=== PATIENT | male | born 1935 | race Caucasian/White ===

== ENCOUNTER 2020-11-20 11:52 | Inpatient (IN) | payer MEDICARE, OTHER ==
[~2020-11-20] VITALS: Ht 175.3 cm; Wt 100.5 kg
[2020-11-20] MEDS ORDERED: SODIUM CHLORIDE 0.9% 1,000 ML IVB ONE (14:15)
[2020-11-20 15:18] LABS: Hemoglobin 16.1 g/dL (13.5-17.5); Mean Corpuscular Hgb Conc. 33.5 g/dL (32.0-36.0); Mean Corpuscular Volume 89.8 fL (80.0-100.0); Red Blood Cells 5.35 10^6/uL (4.5-5.90); Red Cell Distribution Width 15.1 % (11.8-14.3); White Blood Cell 21.3 10^3/uL (4.4-10.8)
[2020-11-20 15:30] LABS: Band Neutrophils % (manual) 0; Basophils % (manual) 0 (0.0-2.0); Blast Cells 0; Eosinophils % (manual) 0 (0-7); Metamyelocytes % 0; Myelocytes % 0; Promyelocytes % 0; Reactive Lymphocytes 0
[2020-11-20] MEDS ORDERED: AZITHROMYCIN 500MG/ 250ML 250 ML IV ONE (15:30)
[2020-11-20 15:36] LABS: INR 1.25 (0.9-1.15); Partial Thromboplastin Time 33.2 sec (23.0-31.2)
[2020-11-20 15:38] LABS: Albumin 2.9 g/dL (3.4-5.0); Anion Gap 12 (5-15); Blood Urea Nitrogen 26 mg/dL (7-18); Calcium 9.4 mg/dL (8.5-10.1); Carbon Dioxide 19 mmol/L (21-32); Chloride 108 mmol/L (98-107); Glucose 181 mg/dL (74-106); Potassium 3.6 mmol/L (3.5-5.1); Sodium 139 mmol/L (136-145)
[2020-11-20 15:47] LABS: Alanine Aminotransferase 42 U/L (16-61); Alkaline Phosphatase 86 U/L (45-117); Aspartate Aminotransferase 61 U/L (15-37); BUN/Creatinine Ratio 13.4; Bilirubin, Total 2.1 mg/dL (0.2-1.0); Blood Alcohol < 3.0 mg/dL (0-5); GFR African American 43 mL/min; GFR Non-African American 35 mL/min; Total Protein 9.6 g/dL (6.4-8.2)
[2020-11-20 16:50] LABS: Lymphocytes % (manual) 7 (10.0-50.0); Monocytes % (manual) 21 (0-12)
[2020-11-20] MEDS ORDERED: ACETAMINOPHEN 500 MG TAB PO PRN (17:45)
[2020-11-20] MEDS ORDERED: HYDROcodone-ACET 5/325MG TAB PO PRN (17:45)
[2020-11-20] MEDS ORDERED: FOLIC ACID 1 MG, MULTIPLE VITAMIN 10 ML, MAGNESIUM SULF SDV 50% 8 MEQ, THIAMINE INJ 100... INJ SCH ×5 (17:45)
[2020-11-20] MEDS ORDERED: ONDANSETRON HCL 4 MG/2 ML VIAL IV PRN (17:45)
[2020-11-20] MEDS ORDERED: MORPHINE SULFATE INJECTION 2 MG/ML SYRG IV PRN ×2 (17:45)
[2020-11-20] MEDS ORDERED: NITROGLYCERIN 0.4 MG SL TAB SL PRN (17:45)
[2020-11-20 18:54] LABS: CRP High Sensitivity 15.9 mg/dL (< 0.3)
[2020-11-20] MEDS: BUDESONIDE (INHALATION) 180 MCG IH IN SCH (22:00)
[2020-11-20] MEDS: ENOXAPARIN SOD 40 MG/0.4 ML SYRINGE SC SCH (22:00)
[2020-11-21 08:02] LABS: Hematocrit 42.2 % (41.0-53.0); Hemoglobin 14.3 g/dL (13.5-17.5); Mean Corpuscular Hemoglobin 30.1 pg (28.0-32.0); Mean Corpuscular Hgb Conc. 33.9 g/dL (32.0-36.0); Red Blood Cells 4.74 10^6/uL (4.5-5.90); Red Cell Distribution Width 15.1 % (11.8-14.3); White Blood Cell 15.9 10^3/uL (4.4-10.8)
[2020-11-21 08:11] LABS: Band Neutrophils % (manual) 0; Basophils % (manual) 0 (0.0-2.0); Eosinophils % (manual) 0 (0-7); Metamyelocytes % 0; Myelocytes % 0; Promyelocytes % 0; Reactive Lymphocytes 0
[2020-11-21 08:12] LABS: Blast Cells 0
[2020-11-21 08:31] LABS: Albumin 2.4 g/dL (3.4-5.0); Bilirubin, Total 1.6 mg/dL (0.2-1.0); Calcium 8.8 mg/dL (8.5-10.1); Total Protein 8.1 g/dL (6.4-8.2)
[2020-11-21] MEDS: cefTRIAXone 1GM/50ML D5W 50 ML IV SCH (09:00)
[2020-11-21] MEDS: BUDESONIDE (INHALATION) 180 MCG IH IN SCH ×2 (10:00→22:00)
[2020-11-21] MEDS: FAMOTIDINE 20 MG TAB PO SCH (10:00)
[2020-11-21] MEDS: MULTIPLE VITAMIN TAB PO SCH (10:00)
[2020-11-21] MEDS: ASCORBIC ACID 1,000 MG TAB PO SCH (10:00)
[2020-11-21] MEDS: ZINC SULFATE 220mg CAP or TAB PO SCH (10:00)
[2020-11-21] MEDS: CHOLECALCIFEROL (VITD3) 2,000 UNIT CAP/TAB PO SCH (10:00)
[2020-11-21] MEDS: DexAMETHasone SOD PHOS 10MG/1ML VIAL INJ IV SCH (10:00)
[2020-11-21] MEDS: AZITHROMYCIN 500MG/ 250ML 250 ML IV SCH (10:30)
[2020-11-21 11:50] LABS: Lymphocytes % (manual) 11 (10.0-50.0); Monocytes % (manual) 22 (0-12)
[2020-11-21] MEDS ORDERED: REMDESIVIR PER PHARMACY 0 ML IV SCH (13:30)
[2020-11-21] MEDS ORDERED: REMDESIVIR 200 MG in NS 210ml LOADING DOSE ADULT IV ONE (15:00)
[2020-11-21] MEDS ORDERED: SODIUM BICARBONATE 50ML VIAL 50 ML in SOD CHL 0.45% 1,000 ML IV SCH (17:00)
[2020-11-21] MEDS: ENOXAPARIN SOD 40 MG/0.4 ML SYRINGE SC SCH (17:15)
[2020-11-21] MEDS: SODIUM BICARBONATE 50ML VIAL 50 ML in SOD CHL 0.45% 1,000 ML IV SCH (21:00)
[2020-11-21 21:03] LABS: Free T3 1.7 pg/mL (2.3-4.2); Free T4 (Free Thyroxine) 1.03 ng/dL (0.89-1.76)
[2020-11-21] MEDS ORDERED: THIAMINE HCL 100 MG TAB PO SCH (22:00)
[2020-11-22] MEDS: SODIUM BICARBONATE 50ML VIAL 50 ML in SOD CHL 0.45% 1,000 ML IV SCH (01:39)
[2020-11-22] MEDS: ENOXAPARIN SOD 40 MG/0.4 ML SYRINGE SC SCH ×2 (03:17→09:50)
[2020-11-22] MEDS: FOLIC ACID 1 MG TAB PO SCH ×2 (03:17→22:00)
[2020-11-22 07:38] LABS: Hematocrit 39.3 % (41.0-53.0); Hemoglobin 13.4 g/dL (13.5-17.5); Mean Corpuscular Hemoglobin 30.6 pg (28.0-32.0); Mean Corpuscular Hgb Conc. 34.2 g/dL (32.0-36.0); Mean Corpuscular Volume 89.5 fL (80.0-100.0); Red Blood Cells 4.39 10^6/uL (4.5-5.90); Red Cell Distribution Width 14.6 % (11.8-14.3)
[2020-11-22 07:54] LABS: Band Neutrophils % (manual) 0; Basophils % (manual) 0 (0.0-2.0); Blast Cells 0; Eosinophils % (manual) 0 (0-7); Metamyelocytes % 0; Myelocytes % 0; Promyelocytes % 0; Reactive Lymphocytes 0
[2020-11-22 08:22] LABS: Albumin 2.3 g/dL (3.4-5.0); Calcium 8.8 mg/dL (8.5-10.1); Potassium 4.1 mmol/L (3.5-5.1)
[2020-11-22 08:28] LABS: BUN/Creatinine Ratio 28.3; Bilirubin, Total 1.3 mg/dL (0.2-1.0); Phosphorus 4.5 mg/dL (2.5-4.90); Total Protein 7.7 g/dL (6.4-8.2)
[2020-11-22] MEDS: cefTRIAXone 1GM/50ML D5W 50 ML IV SCH (08:36)
[2020-11-22 09:16] LABS: Lymphocytes % (manual) 14 (10.0-50.0); Monocytes % (manual) 22 (0-12)
[2020-11-22] MEDS: AZITHROMYCIN 500MG/ 250ML 250 ML IV SCH (09:49)
[2020-11-22] MEDS: SODIUM CHLORIDE 0.9% 1,000 ML IV SCH ×3 (09:49→22:50)
[2020-11-22] MEDS: DexAMETHasone SOD PHOS 10MG/1ML VIAL INJ IV SCH (09:49)
[2020-11-22] MEDS: THIAMINE HCL 100 MG TAB PO SCH (09:49)
[2020-11-22] MEDS: ASCORBIC ACID 1,000 MG TAB PO SCH (09:50)
[2020-11-22] MEDS: FAMOTIDINE 20 MG TAB PO SCH (09:50)
[2020-11-22] MEDS: CHOLECALCIFEROL (VITD3) 2,000 UNIT CAP/TAB PO SCH (09:50)
[2020-11-22] MEDS: MULTIPLE VITAMIN TAB PO SCH (09:50)
[2020-11-22] MEDS: ZINC SULFATE 220mg CAP or TAB PO SCH (09:50)
[2020-11-22] MEDS: BUDESONIDE (INHALATION) 180 MCG IH IN SCH ×2 (10:00→22:00)
[2020-11-22] MEDS ORDERED: LEVOTHYROXINE SODIUM 25 MCG TAB PO ONE (11:30)
[2020-11-22 11:49] LABS: Urine WBC None Seen /hpf (0 - 3)
[2020-11-22 11:58] LABS: Urine Bacteria FEW /hpf (None Seen); Urine Blood TRACE /uL (Negative); Urine Hyaline Cast MANY /lpf (0 - 2); Urine Mucus FEW (None Seen); Urine Specific Gravity 1.021 (1.001-1.035)
[2020-11-22] MEDS ORDERED: FOLIC ACID 1 MG, MULTIPLE VITAMIN 10 ML, MAGNESIUM SULF SDV 50% 8 MEQ, THIAMINE INJ 100... INJ SCH ×5 (12:00)
[2020-11-22 12:11] LABS: Alcohol, Urine < 3.0 mg/dL (0-10); Amphetamine Screen, Urine NEGATIVE (NEGATIVE); Barbiturate Scree,Urine NEGATIVE (NEGATIVE); Benzodiazephine Screen, Urine NEGATIVE (NEGATIVE); Cannabinoid Screen, Urine NEGATIVE (NEGATIVE); Cocaine Screen, Urine NEGATIVE (NEGATIVE); Opiate Scree,Urine NEGATIVE (NEGATIVE); Phencyclidine Screen, Urine NEGATIVE (NEGATIVE)
[2020-11-22 12:17] LABS: Creatinine, Urine 167 mg/dL (30.0-125.0); Sodium Urine 23 mmol/L (40-220)
[2020-11-22 12:24] LABS: Protein, Urine 101.2 mg/dL (0.0-11.9)
[2020-11-22] MEDS: REMDESIVIR 100 MG in SODIUM CHL 0.9% 250 ML IV SCH (15:09)
[2020-11-22] MEDS ORDERED: DIGOXIN (250MCG/ML) 2 ML AMPULE IV ONE (15:20)
[2020-11-22 18:06] LABS: Urine WBC None Seen /hpf (0 - 3)
[2020-11-22 18:26] LABS: Urine Bacteria NONE SEEN /hpf (None Seen); Urine Blood Negative /uL (Negative); Urine Hyaline Cast FEW /lpf (0 - 2); Urine Mucus FEW (None Seen); Urine Specific Gravity 1.021 (1.001-1.035)
[2020-11-22 20:00] VITALS: BP 114/82
[2020-11-22] MEDS: APIXABAN 2.5 MG TAB PO SCH (22:00)
[2020-11-22 22:33] VITALS: BP 114/82
[2020-11-23] MEDS: SODIUM CHLORIDE 0.9% 1,000 ML IV SCH ×3 (05:30→18:50)
[2020-11-23] MEDS: LEVOTHYROXINE SODIUM 25 MCG TAB PO SCH (05:44)
[2020-11-23 07:30] LABS: Basophils # (auto) 0 10 ^3/uL (0-0.2); Basophils % (auto) 0.2 % (0.0-2.0); Eosinophils # (auto) 0 10 ^3/uL (0-0.8); Hematocrit 37.9 % (41.0-53.0); Hemoglobin 13.2 g/dL (13.5-17.5); Lymphocytes # (auto) 0.6 10 ^3/uL (0.4-5.4); Lymphocytes % (auto) 9.5 % (10.0-50.0); Mean Corpuscular Hemoglobin 30.7 pg (28.0-32.0); Mean Corpuscular Hgb Conc. 34.8 g/dL (32.0-36.0); Mean Corpuscular Volume 88.3 fL (80.0-100.0); Monocytes # (auto) 0.5 10 ^3/uL (0-1.3); Monocytes % (auto) 7.1 % (0.0-12.0); Neutrophils # (auto) 5.6 10 ^3/uL (1.6-8.6); Neutrophils % (auto) 83.2 % (37.0-80.0); Nucleated Red Blood Cells % 0.1 %; Red Blood Cells 4.29 10^6/uL (4.5-5.90); Red Cell Distribution Width 14.5 % (11.8-14.3); White Blood Cell 6.8 10^3/uL (4.4-10.8)
[2020-11-23 07:41] LABS: Albumin 2.2 g/dL (3.4-5.0); Potassium 4.5 mmol/L (3.5-5.1)
[2020-11-23 07:43] LABS: BUN/Creatinine Ratio 35.1
[2020-11-23 08:00] VITALS: BP 129/70
[2020-11-23 08:07] LABS: Bilirubin, Total 0.8 mg/dL (0.2-1.0); Calcium 8.7 mg/dL (8.5-10.1); Total Protein 7.5 g/dL (6.4-8.2)
[2020-11-23] MEDS: cefTRIAXone 1GM/50ML D5W 50 ML IV SCH (08:50)
[2020-11-23 09:41] LABS: Urine Bacteria NONE SEEN /hpf (None Seen); Urine Blood Negative /uL (Negative); Urine Mucus FEW (None Seen); Urine Specific Gravity 1.021 (1.001-1.035); Urine WBC 1 /hpf (0 - 3)
[2020-11-23] MEDS: ASCORBIC ACID 1,000 MG TAB PO SCH (10:00)
[2020-11-23] MEDS: CHOLECALCIFEROL (VITD3) 2,000 UNIT CAP/TAB PO SCH (10:00)
[2020-11-23] MEDS: ZINC SULFATE 220mg CAP or TAB PO SCH (10:00)
[2020-11-23] MEDS: FAMOTIDINE 20 MG TAB PO SCH (10:00)
[2020-11-23] MEDS: THIAMINE HCL 100 MG TAB PO SCH (10:00)
[2020-11-23] MEDS: AZITHROMYCIN 500MG/ 250ML 250 ML IV SCH (11:05)
[2020-11-23] MEDS: DexAMETHasone SOD PHOS 10MG/1ML VIAL INJ IV SCH (11:10)
[2020-11-23] MEDS: APIXABAN 2.5 MG TAB PO SCH ×2 (11:12→21:31)
[2020-11-23] MEDS: MULTIPLE VITAMIN TAB PO SCH (11:20)
[2020-11-23] MEDS: FOLIC ACID 1 MG TAB PO SCH (11:20)
[2020-11-23] MEDS ORDERED: METOPROLOL TARTRATE 50 MG TAB PO ONE (12:30)
[2020-11-23] MEDS ORDERED: DIGOXIN (250MCG/ML) 2 ML AMPULE IV ONE (12:30)
[2020-11-23] MEDS: BUDESONIDE (INHALATION) 180 MCG IH IN SCH ×2 (14:26→20:30)
[2020-11-23 15:30] VITALS: BP 136/79
[2020-11-23] MEDS: REMDESIVIR 100 MG in SODIUM CHL 0.9% 250 ML IV SCH (15:33)
[2020-11-23 15:50] VITALS: BP 135/79
[2020-11-23 16:00] VITALS: BP 132/71
[2020-11-23] MEDS: METOPROLOL TARTRATE 25 MG TAB PO SCH (21:31)
[2020-11-24] VITALS: BP 133/89
[2020-11-24] MEDS: SODIUM CHLORIDE 0.9% 1,000 ML IV SCH ×3 (01:30→14:50)
[2020-11-24] MEDS: LEVOTHYROXINE SODIUM 25 MCG TAB PO SCH (06:06)
[2020-11-24 06:20] LABS: Basophils # (auto) 0 10 ^3/uL (0-0.2); Eosinophils # (auto) 0 10 ^3/uL (0-0.8); Hematocrit 37.3 % (41.0-53.0); Lymphocytes # (auto) 0.8 10 ^3/uL (0.4-5.4); Lymphocytes % (auto) 10.8 % (10.0-50.0); Mean Corpuscular Hemoglobin 30.7 pg (28.0-32.0); Mean Corpuscular Hgb Conc. 34.9 g/dL (32.0-36.0); Mean Corpuscular Volume 87.9 fL (80.0-100.0); Monocytes # (auto) 0.6 10 ^3/uL (0-1.3); Monocytes % (auto) 8.6 % (0.0-12.0); Neutrophils % (auto) 80.6 % (37.0-80.0); Red Blood Cells 4.25 10^6/uL (4.5-5.90); Red Cell Distribution Width 14.3 % (11.8-14.3); White Blood Cell 7.4 10^3/uL (4.4-10.8)
[2020-11-24 06:40] LABS: Albumin 2.1 g/dL (3.4-5.0); BUN/Creatinine Ratio 40.2; Calcium 8.4 mg/dL (8.5-10.1); Potassium 4.5 mmol/L (3.5-5.1)
[2020-11-24 06:43] LABS: Bilirubin, Total 0.5 mg/dL (0.2-1.0)
[2020-11-24] MEDS: BUDESONIDE (INHALATION) 180 MCG IH IN SCH ×2 (07:35→19:15)
[2020-11-24 08:00] VITALS: BP_SYST 120; BP_SYST 124; BP_DIAS 74; BP_DIAS 84
[2020-11-24] MEDS: AZITHROMYCIN 500MG/ 250ML 250 ML IV SCH (09:44)
[2020-11-24] MEDS: DexAMETHasone SOD PHOS 10MG/1ML VIAL INJ IV SCH (09:44)
[2020-11-24] MEDS: ZINC SULFATE 220mg CAP or TAB PO SCH (09:44)
[2020-11-24] MEDS: THIAMINE HCL 100 MG TAB PO SCH (09:44)
[2020-11-24] MEDS: APIXABAN 2.5 MG TAB PO SCH ×2 (09:44→21:52)
[2020-11-24] MEDS: cefTRIAXone 1GM/50ML D5W 50 ML IV SCH (09:44)
[2020-11-24] MEDS: ASCORBIC ACID 1,000 MG TAB PO SCH (09:45)
[2020-11-24] MEDS: CHOLECALCIFEROL (VITD3) 2,000 UNIT CAP/TAB PO SCH (09:45)
[2020-11-24] MEDS: FAMOTIDINE 20 MG TAB PO SCH (09:45)
[2020-11-24] MEDS: MULTIPLE VITAMIN TAB PO SCH (09:45)
[2020-11-24] MEDS: METOPROLOL TARTRATE 25 MG TAB PO SCH ×2 (09:45→21:52)
[2020-11-24 16:00] VITALS: BP 134/76
[2020-11-24] MEDS: REMDESIVIR 100 MG in SODIUM CHL 0.9% 250 ML IV SCH (16:06)
[2020-11-24 19:02] VITALS: BP 137/74
[2020-11-24] MEDS: ALBUTEROL SULF HFA 90MCG INH 200DOSE IN PRN (19:15)
[2020-11-24] MEDS: FOLIC ACID 1 MG TAB PO SCH (21:52)
[2020-11-25] VITALS: BP 123/68
[2020-11-25] MEDS: SODIUM CHLORIDE 0.9% 1,000 ML IV SCH ×4 (03:28→17:30)
[2020-11-25] MEDS: LEVOTHYROXINE SODIUM 25 MCG TAB PO SCH (06:07)
[2020-11-25 08:00] VITALS: BP 123/75
[2020-11-25 09:00] VITALS: BP 117/65
[2020-11-25] MEDS: BUDESONIDE (INHALATION) 180 MCG IH IN SCH ×2 (10:17→19:21)
[2020-11-25] MEDS: ALBUTEROL SULF HFA 90MCG INH 200DOSE IN PRN ×2 (10:17→20:53)
[2020-11-25] MEDS ORDERED: BICA50TA13 PO (10:30)
[2020-11-25] MEDS ORDERED: SIMV-13 PO (10:30)
[2020-11-25] MEDS ORDERED: LISI-275 PO (10:30)
[2020-11-25] MEDS ORDERED: GABA300C10 PO (10:30)
[2020-11-25] MEDS: AZITHROMYCIN 500MG/ 250ML 250 ML IV SCH (10:54)
[2020-11-25] MEDS: DexAMETHasone SOD PHOS 10MG/1ML VIAL INJ IV SCH (10:54)
[2020-11-25] MEDS: cefTRIAXone 1GM/50ML D5W 50 ML IV SCH (10:54)
[2020-11-25] MEDS: FAMOTIDINE 20 MG TAB PO SCH (10:55)
[2020-11-25] MEDS: THIAMINE HCL 100 MG TAB PO SCH (10:55)
[2020-11-25] MEDS: APIXABAN 2.5 MG TAB PO SCH ×2 (10:55→21:53)
[2020-11-25] MEDS: ASCORBIC ACID 1,000 MG TAB PO SCH (10:55)
[2020-11-25] MEDS: ZINC SULFATE 220mg CAP or TAB PO SCH (10:55)
[2020-11-25] MEDS: MULTIPLE VITAMIN TAB PO SCH (10:55)
[2020-11-25] MEDS: CHOLECALCIFEROL (VITD3) 2,000 UNIT CAP/TAB PO SCH (10:56)
[2020-11-25] MEDS: METOPROLOL TARTRATE 25 MG TAB PO SCH ×2 (10:56→22:09)
[2020-11-25] MEDS: REMDESIVIR 100 MG in SODIUM CHL 0.9% 250 ML IV SCH (17:13)
[2020-11-25] MEDS: FOLIC ACID 1 MG TAB PO SCH (21:53)
[2020-11-26] MEDS: SODIUM CHLORIDE 0.9% 1,000 ML IV SCH ×4 (01:36→20:10)
[2020-11-26] MEDS: LEVOTHYROXINE SODIUM 25 MCG TAB PO SCH (06:06)
[2020-11-26] MEDS: BUDESONIDE (INHALATION) 180 MCG IH IN SCH ×2 (07:18→18:56)
[2020-11-26 08:00] VITALS: BP 139/79
[2020-11-26] MEDS: ALBUTEROL SULF HFA 90MCG INH 200DOSE IN PRN ×2 (08:21→18:56)
[2020-11-26] MEDS: cefTRIAXone 1GM/50ML D5W 50 ML IV SCH (10:14)
[2020-11-26] MEDS: DexAMETHasone SOD PHOS 10MG/1ML VIAL INJ IV SCH (10:14)
[2020-11-26] MEDS: THIAMINE HCL 100 MG TAB PO SCH (10:15)
[2020-11-26] MEDS: FAMOTIDINE 20 MG TAB PO SCH (10:15)
[2020-11-26] MEDS: MULTIPLE VITAMIN TAB PO SCH (10:15)
[2020-11-26] MEDS: APIXABAN 2.5 MG TAB PO SCH ×2 (10:15→22:27)
[2020-11-26] MEDS: ZINC SULFATE 220mg CAP or TAB PO SCH (10:15)
[2020-11-26] MEDS: ASCORBIC ACID 1,000 MG TAB PO SCH (10:15)
[2020-11-26] MEDS: AZITHROMYCIN 250 MG TAB PO SCH (10:16)
[2020-11-26] MEDS: CHOLECALCIFEROL (VITD3) 2,000 UNIT CAP/TAB PO SCH (10:16)
[2020-11-26] MEDS: METOPROLOL TARTRATE 25 MG TAB PO SCH ×2 (10:17→22:28)
[2020-11-26 16:28] VITALS: BP 124/84
[2020-11-26] MEDS: ATORVASTATIN 20 MG TAB PO SCH (22:27)
[2020-11-26] MEDS: FOLIC ACID 1 MG TAB PO SCH (22:27)
[2020-11-27] VITALS: BP 153/71
[2020-11-27] MEDS: SODIUM CHLORIDE 0.9% 1,000 ML IV SCH ×4 (04:56→22:05)
[2020-11-27] MEDS: LEVOTHYROXINE SODIUM 25 MCG TAB PO SCH (05:59)
[2020-11-27] MEDS: BUDESONIDE (INHALATION) 180 MCG IH IN SCH ×2 (06:51→22:07)
[2020-11-27] MEDS: ALBUTEROL SULF HFA 90MCG INH 200DOSE IN PRN (07:30)
[2020-11-27 08:00] VITALS: BP 147/79
[2020-11-27] MEDS: cefTRIAXone 1GM/50ML D5W 50 ML IV SCH (08:50)
[2020-11-27] MEDS: APIXABAN 2.5 MG TAB PO SCH ×2 (10:08→22:01)
[2020-11-27] MEDS: DexAMETHasone SOD PHOS 10MG/1ML VIAL INJ IV SCH (10:08)
[2020-11-27] MEDS: ZINC SULFATE 220mg CAP or TAB PO SCH (10:08)
[2020-11-27] MEDS: THIAMINE HCL 100 MG TAB PO SCH (10:08)
[2020-11-27] MEDS: ASCORBIC ACID 1,000 MG TAB PO SCH (10:09)
[2020-11-27] MEDS: AZITHROMYCIN 250 MG TAB PO SCH (10:09)
[2020-11-27] MEDS: FAMOTIDINE 20 MG TAB PO SCH (10:09)
[2020-11-27] MEDS: CHOLECALCIFEROL (VITD3) 2,000 UNIT CAP/TAB PO SCH (10:09)
[2020-11-27] MEDS: MULTIPLE VITAMIN TAB PO SCH (10:09)
[2020-11-27] MEDS: METOPROLOL TARTRATE 25 MG TAB PO SCH ×2 (10:10→22:04)
[2020-11-27 15:57] VITALS: BP 122/69
[2020-11-27] MEDS ORDERED: FOLI1TAB6 PO (17:52)
[2020-11-27] MEDS ORDERED: ALBUAER3 IN (17:52)
[2020-11-27] MEDS ORDERED: LEV25T PO (17:52)
[2020-11-27] MEDS ORDERED: THIA100T10 PO (17:52)
[2020-11-27] MEDS ORDERED: APIX2.5T PO (17:52)
[2020-11-27] MEDS ORDERED: MET25T PO (17:52)
[2020-11-27 20:00] VITALS: BP 125/73
[2020-11-27] MEDS: ATORVASTATIN 20 MG TAB PO SCH (22:01)
[2020-11-27] MEDS: FOLIC ACID 1 MG TAB PO SCH (22:02)
[2020-11-28 01:13] VITALS: BP 125/73
[2020-11-28] MEDS: SODIUM CHLORIDE 0.9% 1,000 ML IV SCH ×3 (06:45→17:51)
[2020-11-28] MEDS: LEVOTHYROXINE SODIUM 25 MCG TAB PO SCH (06:56)
[2020-11-28 08:00] VITALS: BP 146/65
[2020-11-28] MEDS: DexAMETHasone SOD PHOS 10MG/1ML VIAL INJ IV SCH (09:57)
[2020-11-28] MEDS: THIAMINE HCL 100 MG TAB PO SCH (09:57)
[2020-11-28] MEDS: cefTRIAXone 1GM/50ML D5W 50 ML IV SCH (09:57)
[2020-11-28] MEDS: AZITHROMYCIN 250 MG TAB PO SCH (09:58)
[2020-11-28] MEDS: MULTIPLE VITAMIN TAB PO SCH (09:58)
[2020-11-28] MEDS: ZINC SULFATE 220mg CAP or TAB PO SCH (09:58)
[2020-11-28] MEDS: ASCORBIC ACID 1,000 MG TAB PO SCH (09:58)
[2020-11-28] MEDS: CHOLECALCIFEROL (VITD3) 2,000 UNIT CAP/TAB PO SCH (09:58)
[2020-11-28] MEDS: FAMOTIDINE 20 MG TAB PO SCH (09:58)
[2020-11-28] MEDS: APIXABAN 2.5 MG TAB PO SCH ×2 (09:58→21:46)
[2020-11-28] MEDS: BUDESONIDE (INHALATION) 180 MCG IH IN SCH ×2 (09:59→21:53)
[2020-11-28] MEDS: METOPROLOL TARTRATE 25 MG TAB PO SCH ×2 (10:13→21:53)
[2020-11-28 16:00] VITALS: BP 131/78
[2020-11-28] MEDS: LORazepam 2MG/ML-1ML VIAL IV PRN (21:32)
[2020-11-28] MEDS ORDERED: HALOPERIDOL LACTATE 5 MG/ML INJ VIAL ONE (21:42)
[2020-11-28] MEDS ORDERED: HALOPERIDOL LACTATE 5 MG/ML INJ VIAL IM PRN (21:45)
[2020-11-28] MEDS: ATORVASTATIN 20 MG TAB PO SCH (21:46)
[2020-11-28] MEDS: FOLIC ACID 1 MG TAB PO SCH (21:46)
[2020-11-29] VITALS: BP 110/68
[2020-11-29] MEDS: LEVOTHYROXINE SODIUM 25 MCG TAB PO SCH (06:10)
[2020-11-29] MEDS: SODIUM CHLORIDE 0.9% 1,000 ML IV SCH ×4 (06:11→21:30)
[2020-11-29] MEDS: LORazepam 2MG/ML-1ML VIAL IV PRN (06:19)
[2020-11-29] MEDS: cefTRIAXone 1GM/50ML D5W 50 ML IV SCH (09:37)
[2020-11-29] MEDS: BUDESONIDE (INHALATION) 180 MCG IH IN SCH ×3 (09:37→19:45)
[2020-11-29] MEDS: DexAMETHasone SOD PHOS 10MG/1ML VIAL INJ IV SCH (09:37)
[2020-11-29] MEDS: APIXABAN 2.5 MG TAB PO SCH ×2 (09:38→21:14)
[2020-11-29] MEDS: THIAMINE HCL 100 MG TAB PO SCH (09:38)
[2020-11-29] MEDS: CHOLECALCIFEROL (VITD3) 2,000 UNIT CAP/TAB PO SCH (09:38)
[2020-11-29] MEDS: MULTIPLE VITAMIN TAB PO SCH (09:38)
[2020-11-29] MEDS: ASCORBIC ACID 1,000 MG TAB PO SCH (09:38)
[2020-11-29] MEDS: AZITHROMYCIN 250 MG TAB PO SCH (09:38)
[2020-11-29] MEDS: FAMOTIDINE 20 MG TAB PO SCH (09:38)
[2020-11-29] MEDS: ZINC SULFATE 220mg CAP or TAB PO SCH (09:38)
[2020-11-29] MEDS: METOPROLOL TARTRATE 25 MG TAB PO SCH ×2 (10:00→21:14)
[2020-11-29 16:54] VITALS: BP 139/71
[2020-11-29] MEDS: ATORVASTATIN 20 MG TAB PO SCH (21:14)
[2020-11-29 21:15] VITALS: BP 146/74
[2020-11-29] MEDS: FOLIC ACID 1 MG TAB PO SCH (21:55)
[2020-11-30] VITALS: BP 142/91
[2020-11-30] MEDS: SODIUM CHLORIDE 0.9% 1,000 ML IV SCH ×4 (06:53→21:46)
[2020-11-30] MEDS: LEVOTHYROXINE SODIUM 25 MCG TAB PO SCH (06:54)
[2020-11-30 08:00] VITALS: BP 138/78
[2020-11-30] MEDS: BUDESONIDE (INHALATION) 180 MCG IH IN SCH ×3 (10:00→20:48)
[2020-11-30] MEDS: cefTRIAXone 1GM/50ML D5W 50 ML IV SCH (11:09)
[2020-11-30] MEDS: DexAMETHasone SOD PHOS 10MG/1ML VIAL INJ IV SCH (11:09)
[2020-11-30] MEDS: ZINC SULFATE 220mg CAP or TAB PO SCH (11:10)
[2020-11-30] MEDS: THIAMINE HCL 100 MG TAB PO SCH (11:10)
[2020-11-30] MEDS: APIXABAN 2.5 MG TAB PO SCH ×2 (11:10→21:32)
[2020-11-30] MEDS: MULTIPLE VITAMIN TAB PO SCH (11:10)
[2020-11-30] MEDS: METOPROLOL TARTRATE 25 MG TAB PO SCH ×2 (11:10→21:32)
[2020-11-30] MEDS: FAMOTIDINE 20 MG TAB PO SCH (11:10)
[2020-11-30] MEDS: ASCORBIC ACID 1,000 MG TAB PO SCH (11:11)
[2020-11-30] MEDS: CHOLECALCIFEROL (VITD3) 2,000 UNIT CAP/TAB PO SCH (11:11)
[2020-11-30 15:58] VITALS: BP 150/75
[2020-11-30 21:28] VITALS: BP 118/69
[2020-11-30] MEDS: ATORVASTATIN 20 MG TAB PO SCH (21:31)
[2020-11-30] MEDS: FOLIC ACID 1 MG TAB PO SCH (22:35)
[2020-12-01] VITALS: BP 126/50
[2020-12-01] MEDS: BUDESONIDE (INHALATION) 180 MCG IH IN SCH ×2 (06:49→19:56)
[2020-12-01] MEDS: LEVOTHYROXINE SODIUM 25 MCG TAB PO SCH (07:44)
[2020-12-01] MEDS: SODIUM CHLORIDE 0.9% 1,000 ML IV SCH ×3 (07:45→22:25)
[2020-12-01] MEDS: MULTIPLE VITAMIN TAB PO SCH (10:00)
[2020-12-01] MEDS: FAMOTIDINE 20 MG TAB PO SCH (10:00)
[2020-12-01] MEDS: CHOLECALCIFEROL (VITD3) 2,000 UNIT CAP/TAB PO SCH (10:00)
[2020-12-01] MEDS: ASCORBIC ACID 1,000 MG TAB PO SCH (11:22)
[2020-12-01] MEDS: METOPROLOL TARTRATE 25 MG TAB PO SCH ×2 (11:22→22:24)
[2020-12-01] MEDS: THIAMINE HCL 100 MG TAB PO SCH (11:22)
[2020-12-01] MEDS: APIXABAN 2.5 MG TAB PO SCH ×2 (11:22→22:24)
[2020-12-01] MEDS: cefTRIAXone 1GM/50ML D5W 50 ML IV SCH (11:22)
[2020-12-01] MEDS: ZINC SULFATE 220mg CAP or TAB PO SCH (11:22)
[2020-12-01] MEDS: DexAMETHasone SOD PHOS 10MG/1ML VIAL INJ IV SCH (11:22)
[2020-12-01] MEDS: ATORVASTATIN 20 MG TAB PO SCH (22:24)
[2020-12-01] MEDS: FOLIC ACID 1 MG TAB PO SCH (22:24)
[2020-12-02] VITALS: BP 117/66
[2020-12-02] MEDS: SODIUM CHLORIDE 0.9% 1,000 ML IV SCH ×4 (02:59→22:51)
[2020-12-02] MEDS: LEVOTHYROXINE SODIUM 25 MCG TAB PO SCH (06:33)
[2020-12-02] MEDS: BUDESONIDE (INHALATION) 180 MCG IH IN SCH ×2 (06:41→22:00)
[2020-12-02 08:20] VITALS: BP 108/60
[2020-12-02] MEDS: ALBUTEROL SULF HFA 90MCG INH 200DOSE IN PRN (09:02)
[2020-12-02] MEDS: CHOLECALCIFEROL (VITD3) 2,000 UNIT CAP/TAB PO SCH (11:23)
[2020-12-02] MEDS: APIXABAN 2.5 MG TAB PO SCH ×2 (11:23→22:08)
[2020-12-02] MEDS: METOPROLOL TARTRATE 25 MG TAB PO SCH ×2 (11:23→22:17)
[2020-12-02] MEDS: THIAMINE HCL 100 MG TAB PO SCH (11:23)
[2020-12-02] MEDS: cefTRIAXone 1GM/50ML D5W 50 ML IV SCH (11:23)
[2020-12-02] MEDS: ASCORBIC ACID 1,000 MG TAB PO SCH (11:23)
[2020-12-02] MEDS: FAMOTIDINE 20 MG TAB PO SCH (11:23)
[2020-12-02] MEDS: MULTIPLE VITAMIN TAB PO SCH (11:23)
[2020-12-02] MEDS: DexAMETHasone SOD PHOS 10MG/1ML VIAL INJ IV SCH (11:23)
[2020-12-02] MEDS: ZINC SULFATE 220mg CAP or TAB PO SCH (11:23)
[2020-12-02 17:00] VITALS: BP 132/74
[2020-12-02] MEDS: FOLIC ACID 1 MG TAB PO SCH (22:08)
[2020-12-02] MEDS: ATORVASTATIN 20 MG TAB PO SCH (22:08)
[2020-12-03] VITALS: BP 121/75
[2020-12-03] MEDS: ALBUTEROL SULF HFA 90MCG INH 200DOSE IN PRN ×3 (01:03→19:52)
[2020-12-03] MEDS: SODIUM CHLORIDE 0.9% 1,000 ML IV SCH ×3 (05:30→18:50)
[2020-12-03] MEDS: LEVOTHYROXINE SODIUM 25 MCG TAB PO SCH (06:07)
[2020-12-03 08:00] VITALS: BP 138/64
[2020-12-03] MEDS: cefTRIAXone 1GM/50ML D5W 50 ML IV SCH (09:05)
[2020-12-03] MEDS: THIAMINE HCL 100 MG TAB PO SCH (09:06)
[2020-12-03] MEDS: DexAMETHasone SOD PHOS 10MG/1ML VIAL INJ IV SCH (09:06)
[2020-12-03] MEDS: APIXABAN 2.5 MG TAB PO SCH ×2 (09:06→21:57)
[2020-12-03] MEDS: ZINC SULFATE 220mg CAP or TAB PO SCH (09:06)
[2020-12-03] MEDS: ASCORBIC ACID 1,000 MG TAB PO SCH (09:07)
[2020-12-03] MEDS: CHOLECALCIFEROL (VITD3) 2,000 UNIT CAP/TAB PO SCH (09:07)
[2020-12-03] MEDS: MULTIPLE VITAMIN TAB PO SCH (09:07)
[2020-12-03] MEDS: METOPROLOL TARTRATE 25 MG TAB PO SCH ×2 (09:07→21:57)
[2020-12-03] MEDS: FAMOTIDINE 20 MG TAB PO SCH (09:07)
[2020-12-03] MEDS: BUDESONIDE (INHALATION) 180 MCG IH IN SCH ×4 (11:43→21:56)
[2020-12-03] MEDS: FOLIC ACID 1 MG TAB PO SCH (21:57)
[2020-12-03] MEDS: ATORVASTATIN 20 MG TAB PO SCH (21:57)
[2020-12-04] VITALS: BP 116/56
[2020-12-04] MEDS: SODIUM CHLORIDE 0.9% 1,000 ML IV SCH ×4 (01:30→12:10)
[2020-12-04] MEDS: LEVOTHYROXINE SODIUM 25 MCG TAB PO SCH (06:47)
[2020-12-04 08:00] VITALS: BP 133/78
[2020-12-04] MEDS: ALBUTEROL SULF HFA 90MCG INH 200DOSE IN PRN (08:00)
[2020-12-04] MEDS: BUDESONIDE (INHALATION) 180 MCG IH IN SCH (08:00)
[2020-12-04] MEDS: ZINC SULFATE 220mg CAP or TAB PO SCH (10:00)
[2020-12-04] MEDS: THIAMINE HCL 100 MG TAB PO SCH (10:00)
[2020-12-04] MEDS: APIXABAN 2.5 MG TAB PO SCH (10:00)
[2020-12-04] MEDS: DexAMETHasone SOD PHOS 10MG/1ML VIAL INJ IV SCH (10:00)
[2020-12-04] MEDS: cefTRIAXone 1GM/50ML D5W 50 ML IV SCH (10:00)
[2020-12-04] MEDS: MULTIPLE VITAMIN TAB PO SCH (10:01)
[2020-12-04] MEDS: METOPROLOL TARTRATE 25 MG TAB PO SCH (10:01)
[2020-12-04] MEDS: ASCORBIC ACID 1,000 MG TAB PO SCH (10:02)
[2020-12-04] MEDS: FAMOTIDINE 20 MG TAB PO SCH (10:02)
[2020-12-04] MEDS: CHOLECALCIFEROL (VITD3) 2,000 UNIT CAP/TAB PO SCH (10:02)
[2020-12-04 16:00] VITALS: BP 125/68
== END 2020-12-04 19:53 | disposition hospice, home (50) | DRG 871 ==
LOC: EDBD 11:52 → ER 11:52 → TELE 11:53 → TELE-WESTW 11-22 18:51
PROVIDERS: ADMIT Nurse Practitioner Acute Care; ATTEND Internal Medicine
PROC: XW033E5 Introduction of Remdesivir Anti-infective into Peripheral Vein, Percutaneous Approach, New Technology Group 5 (ICD-10-PCS; principal; 2020-11-22)
DX: A41.89 Other specified sepsis (principal); U07.1 COVID-19; J12.82 Pneumonia due to coronavirus disease 2019; N17.0 Acute kidney failure with tubular necrosis; J96.01 Acute respiratory failure with hypoxia; G92 Toxic encephalopathy; G93.41 Metabolic encephalopathy; M62.82 Rhabdomyolysis; I48.20 Chronic atrial fibrillation, unspecified; E87.2 Acidosis; Z51.5 Encounter for palliative care; E88.09 Other disorders of plasma-protein metabolism, not elsewhere classified; Z68.39 Body mass index [BMI] 39.0-39.9, adult; Z79.01 Long term (current) use of anticoagulants; E86.0 Dehydration; E11.9 Type 2 diabetes mellitus without complications; E66.01 Morbid (severe) obesity due to excess calories; E03.9 Hypothyroidism, unspecified; F03.90 Unspecified dementia, unspecified severity, without behavioral disturbance, psychotic disturbance, mood disturbance, and anxiety; F10.10 Alcohol abuse, uncomplicated; I25.10 Atherosclerotic heart disease of native coronary artery without angina pectoris; K76.0 Fatty (change of) liver, not elsewhere classified; M25.78 Osteophyte, vertebrae; M48.02 Spinal stenosis, cervical region; M50.222 Other cervical disc displacement at C5-C6 level; M50.223 Other cervical disc displacement at C6-C7 level; I10 Essential (primary) hypertension; R41.89 Other symptoms and signs involving cognitive functions and awareness
CPT/HCPCS: 36415; 70450; 71045; 72125; 76705; 80053; 80307; 80320; 81001; 82550; 82570; 82728; 83036; 83615; 83735; 84100; 84156; 84300; 84439; 84443; 84481; 84484; 85007; 85025; 85027; 85379; 85610; 85730; 86141; 87040; 87086; 87426; 87804; 93005; 93970; 94640; 97116; 97530; A4565; G0378; J0696; J1100

== ENCOUNTER 2021-12-30 04:49 | Emergency (ER) | payer OTHER ==
[~2021-12-30] VITALS: Ht 177.8 cm; Wt 120.2 kg
[~2021-12-30 04:49] MED LIST: ALBUAER3 IN; APIX2.5T PO; BICA50TA13 PO; FOLI1TAB6 PO; GABA300C10 PO; LEV25T PO; MET25T PO; SIMV-13 PO; THIA100T10 PO
[2021-12-30 06:12] LABS: Hematocrit 45.4 % (41.0-53.0); Hemoglobin 15.5 g/dL (13.5-17.5); Mean Corpuscular Hemoglobin 30.7 pg (28.0-32.0); Mean Corpuscular Volume 90.1 fL (80.0-100.0); Red Blood Cells 5.04 10^6/uL (4.5-5.90); Red Cell Distribution Width 14.6 % (11.8-14.3); White Blood Cell 7.8 10^3/uL (4.4-10.8)
[2021-12-30 06:24] LABS: Basophils % (manual) 0 (0.0-2.0); Blast Cells 0; Eosinophils % (manual) 0 (0-7); Metamyelocytes % 0; Myelocytes % 0; Promyelocytes % 0
[2021-12-30 06:31] LABS: Albumin 3.6 g/dL (3.4-5.0); Calcium 8.8 mg/dL (8.5-10.1); Potassium 4.5 mmol/L (3.5-5.1)
[2021-12-30 06:36] LABS: BUN/Creatinine Ratio 19.2; Bilirubin, Total 1.1 mg/dL (0.2-1.0); Total Protein 7.8 g/dL (6.4-8.2)
[2021-12-30 07:12] LABS: Band Neutrophils % (manual) 4; Lymphocytes % (manual) 19 (10.0-50.0); Monocytes % (manual) 15 (0-12); Reactive Lymphocytes 1
[2021-12-30 07:48] VITALS: BP 121/62
== END 2021-12-30 08:01 | disposition home or self-care (01) ==
LOC: ER 04:49
DX: R04.0 Epistaxis (principal); I10 Essential (primary) hypertension; I48.91 Unspecified atrial fibrillation; Z79.899 Other long term (current) drug therapy
CPT/HCPCS: 30901; 36415; 80053; 85007; 85027

== ENCOUNTER 2024-11-22 00:46 | Emergency (ER) | payer OTHER ==
[~2024-11-22] VITALS: Ht 177.8 cm; Wt 104.5 kg
[~2024-11-22 00:46] MED LIST changes: -BICA50TA13 PO; +BICA50TA42 PO; +FOLI-119 PO; -FOLI1TAB6 PO; +GABA-1250 PO; -GABA300C10 PO; +LATA0.008 EACHEYE; +LISI10TA34 PO; -SIMV-13 PO; +SIMV40TA18 PO
--- NOTE | 2024-11-22 01:36 | ED.PDOC ---
Epistaxis- HPI HPI Comments 89-year-old male brought in by himself. Complaining of nosebleed for the last 2 hours. States he was sitting at home and nosebleed came on unprovoked. Patient was denies being on any blood thinners. Patient denies any trauma to the area. States he was has happened but it was two years ago that it happened like this. Upon arrival bleeding appears to be controlled. Chief Complaint: Nose Bleed Time Seen by MD: 01:17 Reviewed Notes: Nurses Notes Allergies: Coded Allergies: NO KNOWN ALLERGIES (Unverified , 11/20/20) Home Meds Active Scripts Thiamine Hcl (VITAMIN B-1) 100 Mg Tb, 100 MG PO DAILY, #30 TAB Prov:PAOLA PATTON MD 11/27/20 Metoprolol Tartrate (Lopressor) 25 Mg Tb, 25 MG PO BID, #60 TAB Prov:PAOLA PATTON MD 11/27/20 Levothyroxine Sodium (Levothyroxine Sodium) 25 Mcg Tab, 25 MCG PO QAM, #30 TAB Prov:PAOLA PATTON MD 11/27/20 Folic Acid (Folic Acid) 1 Mg Tab, 1 MG PO DAILY@2200, #30 TAB Prov:PAOLA PATTON MD 11/27/20 Apixaban Base (ELIQUIS) 2.5 Mg Tab, 2.5 MG PO BID, #60 TAB Prov:PAOLA PATTON MD 11/27/20 Albuterol Sulfate (VENTOLIN MDI) 90 Mcg Ih, 90 MCG IN TIDPRN PRN, #1 INH 1 Refill Prov:PAOLA PATTON MD 11/27/20 Reported Medications Bicalutamide (Bicalutamide) 50 Mg Tab, 50 MG PO, TAB 11/25/20 Gabapentin (Gabapentin) 300 Mg Cap, 300 MG PO for 30 Days, MG 11/25/20 Simvastatin (Simvastatin) 40 Mg Tab, 40 MG PO DAILY for 30 Days 11/25/20 Information Source: Patient Mode of Arrival: Ambulatory Past Medical History PAST MEDICAL HISTORY: AFIB, HTN Surgical History: Unobtainable Family History Family History: Unobtainable Social History Smoker: Unobtainable Alcohol: Unobtainable Drugs: Unobtainable Lives In: Home Constitutional: denies: chills, diaphoresis, fatigue, fever, malaise, sweats, weakness, others EENTM: reports: nose bleeding Respiratory: denies: cough, hemoptysis, orthopnea, SOB at rest, shortness of b reath, SOB with excertion, stridor, wheezing, others Cardiovascular: denies: chest pain, dizzy spells, diaphoresis, Dyspnea on exertion, edema, irregular heart beat, left arm pain, lightheadedness, palpitations, PND, syncope, others Gastrointestinal: denies: abdomen distended, abdominal pain, blood streaked bowels, constipated, diarrhea, dysphagia, difficulty swallowing, hematemesis, melena, nausea, poor appetite, poor fluid intake, rectal bleeding, rectal pain, vomiting, others Genitourinary: denies: burning, dysuria, flank pain, frequency, hematuria, incontinence, penile discharge, penile sore, pain, testicle pain, testicle swelling, urgency, others Neurological: denies: dizziness, fainting, headache, left sided numbness, left sided weakness, numbness, paresthesia, pre-existing deficit, right sided numbness, right sided weakness, seizure, speech problems, tingling, tremors, weakness, others Musculoskeletal: denies: back pain, gout, joint pain, joint swelling, muscle pain, muscle stiffness, neck pain, others Integumetry: denies: bruises, change in color, change in hair/nails, dryness, laceration, lesions, lumps, rash, wounds, others Allergic/Immunocompromised: denies: Difficulty Healing, Frequent Infections, Hives, Itching, others Hematologic/Lymphatic: denies: anemia, blood clots, easy bleeding, easy bruising, swollen glands, others Physical Exam General Appearance: No Apparent Distress, Normal HEENT: Normal ENT Inspection, Pharynx Normal, TMs Normal Neck: Full Range of Motion, Non-Tender, Normal, Normal Inspection Respiratory: Chest Non-Tender, Lungs Clear, No Accessory Muscle Use, No Respiratory Distress, Normal Breath Sounds Cardiovascular: No Edema, No JVD, No Murmur, No Gallop, Normal Peripheral Pulses, Regular Rate/Rhythm Breast Exam: Deferred Gastrointestinal: No Organomegaly, Non Tender, No Pulsatile Mass, Normal Bowel Sounds, Soft Genitalia: Deferred Pelvic: Deferred Rectal: Deferred Extremities: No calf tenderness, Normal capillary refill, Normal inspection, Normal range of motion, Non-tender, No pedal edema Musculoskeletal : Apperance: Normal Neurologic: Alert, director of logistics II-XII nml as Tested, No Motor Deficits, Normal Affect, Normal Mood, No Sensory Deficits Cerebellar Function: Normal Reflexes: Normal Skin: Dry, Normal Color, Warm Lymphatic: No Adenopathy Was a procedure done? Was a procedure done?: No Differential Diagnosis (NSB) Differential Diagnosis: Anterior Nasal Bleed, Posterior Nasal Bleed X-Ray, Labs, Meds, VS Vital Signs Date Time Temp Pulse Resp B/P (MAP) Pulse Ox O2 Delivery O2 Flow Rate FiO2 11/22/24 01:05 99.2 76 18 113/51 (71) 97 X-Ray, Labs, Meds, VS Comment Patient was face was cleaned. Bleeding was controlled. No further bleeding. Patient denies any blood in the back of his throat. Advised to not rub not sneezing not washed face hard tonight we had until the morning. Time of 1ST Reevaluation: 01:36 Reevaluation 1ST: Improved Patient Education/Counseling: Diagnosis, Treatment, Need For Follow Up (Follow up with PCP in the next 2-4 days. Follow up in the emergency department if nosebleed continues.) Family Education/Counseling: Diagnosis Departure 1 Departure Time of Disposition: 01:35 Impression: Primary Impression: Nosebleed Disposition: 01 HOME / SELF CARE / HOMELESS Condition: Fair Discharged With: Self Critical Care Note Critical Care Time?: No Stability Stability form required: No Heart Score Heart Score: Heart Score Response (Comments) Value History N/A 0 EKG N/A 0 Age N/A 0 Risk Factors N/A 0 Troponin N/A 0 Total 0 TRAVON GRIFFIN Nov 22, 2024 01:36
[2024-11-22 02:26] VITALS: BP 99/60; PULSE 106; TEMP 97.1
[2024-11-22 02:29] VITALS: RESP 24; O2SAT 95
== END 2024-11-22 02:39 | disposition home or self-care (01) ==
LOC: ER 00:46
DX: R04.0 Epistaxis (principal); I10 Essential (primary) hypertension; I48.91 Unspecified atrial fibrillation; Z79.01 Long term (current) use of anticoagulants; Z79.899 Other long term (current) drug therapy

== ENCOUNTER 2024-11-22 08:03 | Inpatient (IN) | payer OTHER ==
[~2024-11-22] VITALS: Ht 172.7 cm; Wt 106.6 kg
[2024-11-22 08:20] VITALS: PULSE 105; RESP 18; O2SAT 97
--- NOTE | 2024-11-22 08:40 | ED.PDOC ---
Epistaxis- HPI HPI Comments 89Y M with PMHx HTN presents to ED for chief complaint epistaxis. Pt states he was sitting at home and nosebleed came on unprovoked. Patient denies being on blood thinners. Patient denies any trauma to the area. Per pt, last episode was two years ago. Upon arrival, bleeding appears to be controlled. Pt was seen today, 11/22/2024, at 0100. Pt is currently tachycardic with HR 125. Pt lives alone. Chief Complaint: Nose Bleed Time Seen by MD: 08:31 Reviewed Notes: Medications, Allergies Allergies: Coded Allergies: NO KNOWN ALLERGIES (Unverified , 11/20/20) Home Meds Active Scripts Thiamine Hcl (VITAMIN B-1) 100 Mg Tb, 100 MG PO DAILY, #30 TAB Prov:PAOLA PATTON MD 11/27/20 Metoprolol Tartrate (Lopressor) 25 Mg Tb, 25 MG PO BID, #60 TAB Prov:PAOLA PATTON MD 11/27/20 Levothyroxine Sodium (Levothyroxine Sodium) 25 Mcg Tab, 25 MCG PO QAM, #30 TAB Prov:PAOLA PATTON MD 11/27/20 Folic Acid (Folic Acid) 1 Mg Tab, 1 MG PO DAILY@2200, #30 TAB Prov:PAOLA PATTON MD 11/27/20 Apixaban Base (ELIQUIS) 2.5 Mg Tab, 2.5 MG PO BID, #60 TAB Prov:PAOLA PATTON MD 11/27/20 Albuterol Sulfate (VENTOLIN MDI) 90 Mcg Ih, 90 MCG IN TIDPRN PRN, #1 INH 1 Refill Prov:PAOLA PATTON MD 11/27/20 Reported Medications Bicalutamide (Bicalutamide) 50 Mg Tab, 50 MG PO, TAB 11/25/20 Gabapentin (Gabapentin) 300 Mg Cap, 300 MG PO for 30 Days, MG 11/25/20 Simvastatin (Simvastatin) 40 Mg Tab, 40 MG PO DAILY for 30 Days 11/25/20 Information Source: Patient Mode of Arrival: Ambulatory Severity: Bleeding Controlled Timing: Hours Duration: Since onset Location: Right naris Mechanism: Spontaneous onset Circumstances: Unknown Use of: None History of: HTN Last Tetanus: UTD Nose: Normal Nose: Intranasal/Septum: Blood Bleeding Status: No active bleeding Bleeding Amount: Mild Associated signs and symptoms: None Past Medical History PAST MEDICAL HISTORY: AFIB, HTN Surgical History: Unobtainable Family History Family History: Unobtainable Social History Smoker: Unobtainable Alcohol: Unobtainable Drugs: Unobtainable Lives In: Home Constitutional: denies: chills, diaphoresis, fatigue, fever, malaise, sweats, weakness, others EENTM: reports: nose bleeding; denies: blurred vision, double vision, ear bleeding, ear discharge, ear drainage, ear pain, ear ringing, eye pain, eye redness, hearing loss, mouth pain, mouth swelling, nasal discharge, nose congestion, nose pain, photophobia, tearing, throat pain, throat swelling, voice changes, others Respiratory: denies: cough, hemoptysis, orthopnea, SOB at rest, shortness of breath, SOB with excertion, stridor, wheezing, others Cardiovascular: denies: chest pain, dizzy spells, diaphoresis, Dyspnea on exertion, edema, irregular heart beat, left arm pain, lightheadedness, palpitations, PND, syncope, others Gastrointestinal: denies: abdomen distended, abdominal pain, blood streaked bowels, constipated, diarrhea, dysphagia, difficulty swallowing, hematemesis, melena, nausea, poor appetite, poor fluid intake, rectal bleeding, rectal pain, vomiting, others Genitourinary: denies: burning, dysuria, flank pain, frequency, hematuria, incontinence, penile discharge, penile sore, pain, testicle pain, testicle swelling, urgency, others Neurological: denies: dizziness, fainting, headache, left sided numbness, left sided weakness, numbness, paresthesia, pre-existing deficit, right sided numbness, right sided weakness, seizure, speech problems, tingling, tremors, weakness, others Musculoskeletal: denies: back pain, gout, joint pain, joint swelling, muscle pain, muscle stiffness, neck pain, others Integumetry: denies: bruises, change in color, change in hair/nails, dryness, laceration, lesions, lumps, rash, wounds, others Allergic/Immunocompromised: denies: Difficulty Healing, Frequent Infections, Hives, Itching, others Hematologic/Lymphatic: denies: anemia, blood clots, easy bleeding, easy bruising, swollen glands, others Endocrine: denies: excessive hunger, excessive sweating, excessive thirst, excessive urination, flushing, intolerance to cold, intolerance to heat, unexplained weight gain, unexplained weight loss, others Psychiatric: denies: anxiety, bipolar disorder, depression, hopeless, panic disorder, schizophrenia, sleepless, suicidal, others All Other Systems: Reviewed and Negative Physical Exam General Appearance: Moderate Distress, Normal HEENT: Pharynx Normal, TMs Normal, Other (Dried blood right naris) Neck: Full Range of Motion, Non-Tender, Normal, Normal Inspection Respiratory: Chest Non-Tender, Lungs Clear, No Accessory Muscle Use, No Respiratory Distress, Normal Breath Sounds Cardiovascular: Irregular, No Edema, No JVD, No Murmur, No Gallop, Normal Peripheral Pulses Breast Exam: Deferred Gastrointestinal: No Organomegaly, Non Tender, No Pulsatile Mass, Normal Bowel Sounds, Soft Genitalia: Deferred Pelvic: Deferred Rectal: Deferred Extremities: No calf tenderness, Normal capillary refill, Normal inspection, Normal range of motion, Non-tender, No pedal edema Musculoskeletal : Apperance: Normal Neurologic: Alert, database tester II-XII nml as Tested, No Motor Deficits, Normal Affect, Normal Mood, No Sensory Deficits Cerebellar Function: Normal Reflexes: Normal Skin: Dry, Normal Color, Warm Peripheral Pulses: 3+ Radial (R), 3+ Radial (L) Lymphatic: No Adenopathy Was a procedure done? Was a procedure done?: Yes Sedation Sedation?: No Nasal Cautery and Pack Indicaton: Anterior epitaxis Silver nitrate: Bilateral Hemostasis: Was obtained Packing: Other (Surgicel) Notes Control the bleeding Differential Diagnosis (NSB) Differential Diagnosis: Anterior Nasal Bleed, Posterior Nasal Bleed, Hypertension X-Ray, Labs, Meds, VS Vital Signs Date Time Temp Pulse Resp B/P (MAP) Pulse Ox O2 Delivery O2 Flow Rate FiO2 11/22/24 09:53 102 20 110/72 (85) 98 11/22/24 08:20 98.0 105 18 106/70 (82) 97 98.0 11/22/24 08:20 105 18 97 Room Air* 0 21 11/22/24 08:14 98.0 128 20 93/63 (73) 96 Lab Test 11/22/24 16:03 11/22/24 11:30 Range/Units Troponin I High Sensitivity Pending 61 *H </=54 ng/L White Blood Count 6.9 4.4-10.8 10^3/uL Red Blood Count 4.73 4.5-5.90 10^6/uL Hemoglobin 14.8 13.5-17.5 g/dL Hematocrit 44.1 41.0-53.0 % Mean Corpuscular Volume 93.1 80.0-100.0 fL Mean Corpuscular Hemoglobin 31.4 28.0-32.0 pg Mean Corpuscular Hemoglobin Concent 33.7 32.0-36.0 g/dL Red Cell Distribution Width 16.1 H 11.8-14.3 % Platelet Count 93 L 140-450 10^3/uL Mean Platelet Volume 10.3 6.9-10.8 fL Neutrophils (%) (Auto) 56.9 37.0-80.0 % Lymphocytes (%) (Auto) 24.8 10.0-50.0 % Monocytes (%) (Auto) 17.9 H 0.0-12.0 % Eosinophils (%) (Auto) 0.1 0.0-7.0 % Basophils (%) (Auto) 0.3 0.0-2.0 % Neutrophils # (Auto) 3.9 1.6-8.6 10 ^3/uL Lymphocytes # (Auto) 1.7 0.4-5.4 10 ^3/uL Monocytes # (Auto) 1.2 0-1.3 10 ^3/uL Eosinophils # (Auto) 0 0-0.8 10 ^3/uL Basophils # (Auto) 0 0-0.2 10 ^3/uL Nucleated Red Blood Cells 0.2 % Prothrombin Time 12.4 H 9.3-11.8 sec Prothrombin Time INR 1.18 H 0.9-1.15 Activated Partial Thromboplast Time 29.2 24.5-34.5 SEC Sodium Level 141 136-145 mmol/L Potassium Level 4.2 3.5-5.1 mmol/L Chloride Level 109 H 98-107 mmol/L Carbon Dioxide Level 23 20-31 mmol/L Anion Gap 9 5-15 Blood Urea Nitrogen 29 H 9-23 mg/dL Creatinine 1.49 H 0.700-1.30 mg/dL Glomerular Filtration Rate Calc 45 >90 mL/min BUN/Creatinine Ratio 19.5 10.0-20.0 Serum Glucose 104 74-106 mg/dL Calcium Level 9.9 8.7-10.4 mg/dL Current Medications Medications (Trade) Dose Ordered Sig/Monica Route Start Time Stop Time Status Last Admin Lorazepam (Ativan Tablet) 2 mg ONCE ONCE PO 11/22/24 08:45 11/22/24 08:46 DC 11/22/24 08:49 Sodium Chloride 1,000 ml @ 1,000 mls/hr Q1H ONCE IV 11/22/24 11:30 11/22/24 12:29 DC 11/22/24 11:45 Patient alert. He is anxious. Denies shortness a breath. Vitals stable. Saturation pristine on room air. Was given Ativan. No sign of any nosebleed. Reviewed his previous visit. Denies chest pain. No leg swelling. Heart rate controlled. Irregular. History of atrial fibrillation. Explained to the patient that he needs his take his blood thinner. Blood thinner maybe causing the bleeding. Bleeding has completely stopped. No blood in the ER. Cardiac marker elevated. Demand ischemia. Spoke with choice physician. He will be admitting the patient. Explained to the patient. Time of 1ST Reevaluation: 09:01 Reevaluation 1ST: Unchanged Patient Education/Counseling: Diagnosis, Treatment Family Education/Counseling: No Family Present Additional Information I reviewed the following notes from patient's past medical encounters: [facility] ER 11/22/2024, 12/30/2021; [facility] discharge 12/04/2020 I discussed treatment and results with medical personnel. Departure 1 Departure Time of Disposition: 09:08 Impression: Primary Impression: Epistaxis Additional Impressions: Atrial fibrillation Qualified Codes: I48.0 - Paroxysmal atrial fibrillation Demand ischemia Disposition: 01 HOME / SELF CARE / HOMELESS Condition: Good Discharged With: Self Critical Care Note Critical Care Time?: Yes (90 min-critical care time only) Stability Stability form required: No Heart Score Heart Score: Heart Score Response (Comments) Value History Slightly Suspicious 0 EKG Normal 0 Age >65 2 Risk Factors 1 or 2 risk factors 1 Troponin N/A 0 Total 3 I personally scribed for MARK CASTILLO MD ([email or web address]) on 11/22/24 at 08:40. Electronically submitted by Anabell Butler ([email or web address]). I personally scribed for MARK CASTILLO MD [email or web address] on 11/22/24 at 09:09. Electronically submitted by Anabell Butler ([email or web address]). MARK CASTILLO MD Nov 22, 2024 08:40
[2024-11-22] MEDS: LORazepam 0.5 MG TAB PO ONE (08:49)
[2024-11-22] MEDS: SODIUM CHLORIDE 0.9% 1,000 ML IV ONE (11:45)
[2024-11-22 11:53] LABS: Basophils # (auto) 0 10 ^3/uL (0-0.2); Basophils % (auto) 0.3 % (0.0-2.0); Eosinophils # (auto) 0 10 ^3/uL (0-0.8); Eosinophils % (auto) 0.1 % (0.0-7.0); Hematocrit 44.1 % (41.0-53.0); Hemoglobin 14.8 g/dL (13.5-17.5); Lymphocytes # (auto) 1.7 10 ^3/uL (0.4-5.4); Lymphocytes % (auto) 24.8 % (10.0-50.0); Mean Corpuscular Hemoglobin 31.4 pg (28.0-32.0); Mean Corpuscular Hgb Conc. 33.7 g/dL (32.0-36.0); Mean Corpuscular Volume 93.1 fL (80.0-100.0); Monocytes # (auto) 1.2 10 ^3/uL (0-1.3); Monocytes % (auto) 17.9 % (0.0-12.0); Neutrophils # (auto) 3.9 10 ^3/uL (1.6-8.6); Neutrophils % (auto) 56.9 % (37.0-80.0); Nucleated Red Blood Cells % 0.2 %; Platelet Count (auto) 93 10^3/uL (140-450); Red Blood Cells 4.73 10^6/uL (4.5-5.90); Red Cell Distribution Width 16.1 % (11.8-14.3); White Blood Cell 6.9 10^3/uL (4.4-10.8)
[2024-11-22 12:01] LABS: Potassium 4.2 mmol/L (3.5-5.1); Sodium 141 mmol/L (136-145)
[2024-11-22 12:02] LABS: Anion Gap 9 (5-15); Calcium 9.9 mg/dL (8.7-10.4); Carbon Dioxide 23 mmol/L (20-31); INR 1.18 (0.9-1.15); Partial Thromboplastin Time 29.2 SEC (24.5-34.5); Prothrombin Time 12.4 sec (9.3-11.8)
[2024-11-22 12:07] LABS: BUN/Creatinine Ratio 19.5 (10.0-20.0); Glucose 104 mg/dL (74-106)
[2024-11-22 12:14] LABS: Blood Urea Nitrogen 29 mg/dL (9-23); Chloride 109 mmol/L (98-107)
[2024-11-22 19:30] VITALS: PULSE 118; RESP 29; O2SAT 94
[2024-11-22] MEDS ORDERED: NITROGLYCERIN 0.4 MG SL TAB SL PRN (21:00)
[2024-11-22] MEDS ORDERED: ACETAMINOPHEN 325 MG TAB PO PRN (21:00)
[2024-11-22] MEDS ORDERED: ONDANSETRON HCL 4 MG/2 ML VIAL IV PRN (21:00)
[2024-11-22] MEDS ORDERED: HYDROcodone-ACET 5/325MG TAB PO PRN (21:00)
[2024-11-22] MEDS ORDERED: MORPHINE SULFATE INJ 2 MG/ml SYRG IV PRN (21:00)
[2024-11-22] MEDS: SODIUM CHLORIDE 0.9% 500 ML IV ONE (21:05)
[2024-11-22 21:18] LABS: Urine Bacteria None Seen /hpf (None Seen)
[2024-11-22 22:03] LABS: Urine Blood 1+ /uL (Negative); Urine Clarity Clear (Clear); Urine Color Yellow (Yellow); Urine Protein, UAD TRACE (Negative); Urine Specific Gravity 1.018 (1.001-1.035); Urine Squamous Epithelial Cell FEW /hpf (<5); Urine Urobilinogen Normal (Negative); Urine WBC 1 /hpf (0 - 3)
[2024-11-22] MEDS: METOPROLOL TARTRATE 25 MG TAB PO SCH (22:13)
[2024-11-22 22:50] VITALS: BP 120/62; PULSE 124; RESP 18; TEMP 97; O2SAT 95
[2024-11-22 23:48] VITALS: RESP 18
[2024-11-23] VITALS (8 sets, daily range): BP systolic 88–140; BP diastolic 48–94; PULSE 106–140; RESP 16–20; TEMP 97.6–98.2; O2SAT 95–98
--- NOTE | 2024-11-23 01:50 | DVHHP2 ---
LINH WOODWARD PATHOLOGIST ASSISTANT 11/23/24 0150: History of Present Illness Reason for Visit: Nosebleed History of Present Illness Information in this HPI is limited due to the patient being a poor historian. 89 year-old male Presented to the emergency department For second day in a row with complaints of recurrent nosebleeds. While in the emergency department troponin levels were mildly elevated 61/58, Without chest pain. However during my evaluation of the patient at [facility], Patient was noted to be sustaining a fib 130 to 140s, With increased respiratory effort. Patient states he does not know what medication he is on, Does not know if he has followed up with cardiology. [place] Patient admitted for rate control, further evaluation and treatment. Cardiovascular: AFIB, HTN Smoke: No ALCOHOL: none Drugs: None Lives: Alone Review of Systems Constitutional: No: Fever, Chills, Sweats, Weakness, Malaise, Other Eyes: No: Pain, Vision change, Conjunctivae inflammation, Eyelid inflammation, Other, Redness ENT: Nose discharge; No: Ear pain, Ear discharge, Nose pain, Nose congestion, Mouth pain, Mouth swelling, Throat pain, Throat swelling, Other Respiratory: Shortness of breath; No: Cough, Dry, SOB with excertion, Wheezing, Hemoptysis, Pleuritic Pain, Sputum, Wheezing, Other Cardiovascular: No: Chest Pain, Palpitations, Orthopnea, Paroxysmal Noc. Dyspnea, Edema, Lt Headedness, Other Gastrointestinal: No: Nausea, Vomiting, Abdominal Pain, Diarrhea, Constipation, Melena, Hematochezia, Other Genitourinary: No Dysuria, No Frequency, No Incontinence, No Hematuria, No Retention, No Other Musculoskeletal: No: other, neck pain, shoulder pain, arm pain, back pain, hand pain, leg pain, foot pain Skin: No: Rash, Lesions, Jaundice, Bruising, Other Neurological: No: Weakness, Numbness, Incoordination, Change in speech, Confusion, Seizures, Other Allergies: Coded Allergies: NO KNOWN ALLERGIES (Unverified , 11/20/20) Medications Current Medications Medications Dose Ordered Sig/Monica Route Start Time Stop Time Status Last Admin Dose Admin Docusate Sodium 100 mg BIDPRN PRN PO 11/22/24 21:00 Acetaminophen 650 mg Q6HP PRN PO 11/22/24 21:00 Acetaminophen/ Hydrocodone Bitart 1 tab Q4HP PRN PO 11/22/24 21:00 Ondansetron HCl 4 mg Q4HP PRN IV 11/22/24 21:00 Enoxaparin Sodium 40 mg DAILY SC 11/23/24 10:00 Nitroglycerin 0.4 mg Q5MINP PRN SL 11/22/24 21:00 Morphine Sulfate 2 mg Q30M PRN IV 11/22/24 21:00 Metoprolol Tartrate 25 mg BID PO 11/22/24 22:00 11/22/24 22:13 25 MG Exam Vital Signs Vital Signs Date Time Temp Pulse Resp B/P (MAP) Pulse Ox O2 Delivery O2 Flow Rate FiO2 11/22/24 23:48 18 Nasal Cannula* 2 28 11/22/24 22:23 98.2 108 126/66 (86) 94 98.2 General Appearance: Alert, Cooperative, mild distress HEENT: Atraumatic, PERRLA, EOMI Respiratory: Clear to auscultation, Normal air movement Cardiovascular: Normal S1, Normal S2, Other (Afib accelerated) Abdominal: Normal bowel sounds, Soft, No tenderness Extremities: No clubbing, No cyanosis, No edema Skin: No rashes Neuro: Normal speech, Strength at 5/5 X4 ext Psych/Mental Status: Mental status NL, Mood NL Labs/Xrays Labs Test 11/22/24 19:30 11/22/24 16:03 11/22/24 11:30 Range/Units Urine Color Yellow Yellow Urine Clarity Clear Clear Urine pH 5.0 5.0-9.0 Urine Specific [place] 1.018 1.001-1.035 Urine Protein Trace H Negative Urine Ketones Trace Negative Urine Blood 1+ H Negative /uL Urine Nitrite Negative Negative Urine Bilirubin Negative Negative Urine Urobilinogen Normal Negative mg/dL Urine Leukocyte Esterase Negative Negative /uL Urine RBC 2 0 - 3 /hpf Urine WBC 1 0 - 3 /hpf Urine Squamous Epithelial Cells Few <5 /hpf Urine Bacteria None seen None Seen /hpf Urine Glucose Normal Normal mg/dL Troponin I High Sensitivity 58 *H </=54 ng/L White Blood Count 6.9 4.4-10.8 10^3/uL Red Blood Count 4.73 4.5-5.90 10^6/uL Hemoglobin 14.8 13.5-17.5 g/dL Hematocrit 44.1 41.0-53.0 % Mean Corpuscular Volume 93.1 80.0-100.0 fL Mean Corpuscular Hemoglobin 31.4 28.0-32.0 pg Mean Corpuscular Hemoglobin Concent 33.7 32.0-36.0 g/dL Red Cell Distribution Width 16.1 H 11.8-14.3 % Platelet Count 93 L 140-450 10^3/uL Mean Platelet Volume 10.3 6.9-10.8 fL Neutrophils (%) (Auto) 56.9 37.0-80.0 % Lymphocytes (%) (Auto) 24.8 10.0-50.0 % Monocytes (%) (Auto) 17.9 H 0.0-12.0 % Eosinophils (%) (Auto) 0.1 0.0-7.0 % Basophils (%) (Auto) 0.3 0.0-2.0 % Neutrophils # (Auto) 3.9 1.6-8.6 10 ^3/uL Lymphocytes # (Auto) 1.7 0.4-5.4 10 ^3/uL Monocytes # (Auto) 1.2 0-1.3 10 ^3/uL Eosinophils # (Auto) 0 0-0.8 10 ^3/uL Basophils # (Auto) 0 0-0.2 10 ^3/uL Nucleated Red Blood Cells 0.2 % Prothrombin Time 12.4 H 9.3-11.8 sec Prothrombin Time INR 1.18 H 0.9-1.15 Activated Partial Thromboplast Time 29.2 24.5-34.5 SEC Sodium Level 141 136-145 mmol/L Potassium Level 4.2 3.5-5.1 mmol/L Chloride Level 109 H 98-107 mmol/L Carbon Dioxide Level 23 20-31 mmol/L Anion Gap 9 5-15 Blood Urea Nitrogen 29 H 9-23 mg/dL Creatinine 1.49 H 0.700-1.30 mg/dL Glomerular Filtration Rate Calc 45 >90 mL/min BUN/Creatinine Ratio 19.5 10.0-20.0 Serum Glucose 104 74-106 mg/dL Calcium Level 9.9 8.7-10.4 mg/dL Assessment/Plan Assessment/Plan Uncontrolled A fib Elevated troponin, likely demand ischemia Epistaxis, resolved Plan Admit telemetry Cardiology. Echocardiogram. Beta akshat for rate control. Repeating troponin in AM. Physical therapy evaluation GI ppx pepcid / DVT ppx lovenox Plan discussed with: Patient My Orders Orders - LINH WOODWARD NP Procedure Category Date Status Time Admit ADMIT 11/22/24 Transmitted 20:49 Code Status CODE 11/22/24 Transmitted 20:49 Vital Signs ANUPAM 11/22/24 In Process 20:49 Review Orders With ANUPAM 11/22/24 In Process Adm.Md 20:49 Encourage Activity As ANUPAM 11/22/24 In Process Tolerate 20:49 Consistent DIET 11/23/24 Transmitted Carb(Ccho)Diabetes Breakfast Oxygen By Face Mask RT 11/22/24 Transmitted 20:49 Docusate Sodium PHA 11/22/24 In Process Capsule (Colace 21:00 Acetaminophen Tablet PHA 11/22/24 In Process (Tylenol Tablet) 21:00 Notify Of Changes ANUPAM 11/22/24 In Process From Base 20:49 Advance Directive ANUPAM 11/22/24 In Process 20:49 Echo 2d Mode Cardiac US 11/22/24 Logged DOP 20:49 Basic Metabolic Panel LAB 11/23/24 Logged 05:00 Basic Metabolic Panel LAB 11/24/24 Verified 05:00 Basic Metabolic Panel LAB 11/25/24 Verified 05:00 Basic Metabolic Panel LAB 11/26/24 Verified 05:00 Complete Blood Count LAB 11/23/24 Logged 05:00 Complete Blood Count LAB 11/24/24 Verified 05:00 Complete Blood Count LAB 11/25/24 Verified 05:00 Complete Blood Count LAB 11/26/24 Verified 05:00 Complete Blood Count LAB 11/27/24 Verified 05:00 Patient Condition ORDERS 11/22/24 Transmitted 20:49 Allergies ANUPAM 11/22/24 In Process 20:49 Hydrocodone-Acet PHA 11/22/24 In Process 5/325mg Tab ([place] 21:00 Ondansetron Hcl PHA 11/22/24 In Process (Zofran) 21:00 Enoxaparin Sodium PHA 11/23/24 In Process (Lovenox) 10:00 Sequential ANUPAM 11/22/24 In Process Compression Device Nitroglycerin PHA 11/22/24 In Process Sublingual (Ntrostat 21:00 Morphine Sulfate PHA 11/22/24 In Process Injection 21:00 Stat Ekg For Chest ANUPAM 11/22/24 In Process Pain 20:49 Notify Of Changes ANUPAM 11/22/24 In Process From Base 20:49 Harbour Master For ANUPAM 11/22/24 In Process 24 Hours 20:49 Emergency Dysrhythmia ANUPAM 11/22/24 In Process Protocol 20:49 Rhythm Strips Once ANUPAM 11/22/24 In Process Every Shift 20:49 Oxygen By Nasal RT 11/22/24 Transmitted Cannula 20:49 * Cardiology Consult CONS 11/22/24 Transmitted 20:49 Metoprolol Tartrate PHA 11/22/24 In Process Tablet (Lopressor Ta 22:00 Sodium Chloride 0.9% PHA 11/22/24 In Process 21:00 Pt Request For Service PT 11/23/24 Logged 01:37 * Dressing Room Attendant CONS 11/23/24 Transmitted Consult Troponin-I Hs LAB 11/23/24 Transmitted 04:00 Date of Service: Nov 23, 2024 Billing Provider: MARILEE BARAJAS MD Common Visit Codes: NOT BILLABLE MARILEE BARAJAS MD 11/23/24 1656: Review of Systems Allergies: Coded Allergies: NO KNOWN ALLERGIES (Unverified , 11/20/20) Additional Comments Additional Comments Additional Comments Was seen and evaluated by me. I agree with the assessment and plan as outlined by my nurse practitioner. LINH WOODWARD NP Nov 23, 2024 01:50 MARILEE BARAJAS MD Nov 23, 2024 16:56
--- NOTE | 2024-11-23 07:11 | ECG ---
[facility] Test Date: 2024-11-22 Test Time: 20:13:54 Pat Name: DEVORAH OLIVAS Department: ER Room: [facility]8T B Gender: M Legal Librarian: : 1935 Requested By: MARK CASTILLO Order Number: [id number] Reading MD: Moshe Martin Measurements Intervals [place] Rate: 121 P: 0 UT: 0 QRS: -23 QRSD: 100 T: 51 QT: 368 QTc: 523 Interpretive Statements Atrial fibrillation Borderline left axis deviation Prolonged QT interval Electronically Signed On 11-23-2024 14:20:31 PST by Moshe Martin Please click the below link to view image of tracing.
[2024-11-23] MEDS: ENOXAPARIN SOD 40 MG/0.4 ML SYRINGE SC SCH (10:00)
[2024-11-23 10:12] LABS: Basophils # (auto) 0 10 ^3/uL (0-0.2); Basophils % (auto) 0.1 % (0.0-2.0); Eosinophils # (auto) 0 10 ^3/uL (0-0.8); Hematocrit 41.4 % (41.0-53.0); Hemoglobin 14.1 g/dL (13.5-17.5); Lymphocytes # (auto) 1.4 10 ^3/uL (0.4-5.4); Lymphocytes % (auto) 18.2 % (10.0-50.0); Mean Corpuscular Hemoglobin 31.9 pg (28.0-32.0); Mean Corpuscular Hgb Conc. 34.1 g/dL (32.0-36.0); Mean Corpuscular Volume 93.7 fL (80.0-100.0); Monocytes # (auto) 1.3 10 ^3/uL (0-1.3); Monocytes % (auto) 16.6 % (0.0-12.0); Neutrophils # (auto) 5.1 10 ^3/uL (1.6-8.6); Neutrophils % (auto) 65.1 % (37.0-80.0); Platelet Count (auto) 94 10^3/uL (140-450); Red Blood Cells 4.41 10^6/uL (4.5-5.90); Red Cell Distribution Width 15.6 % (11.8-14.3); White Blood Cell 7.8 10^3/uL (4.4-10.8)
[2024-11-23 10:30] LABS: Potassium 4.6 mmol/L (3.5-5.1); Sodium 142 mmol/L (136-145)
[2024-11-23 10:31] LABS: Anion Gap 8 (5-15); Carbon Dioxide 24 mmol/L (20-31)
[2024-11-23 10:32] LABS: Calcium 9.5 mg/dL (8.7-10.4)
[2024-11-23 10:37] LABS: BUN/Creatinine Ratio 19.3 (10.0-20.0)
[2024-11-23 10:46] LABS: Blood Urea Nitrogen 28 mg/dL (9-23); Chloride 110 mmol/L (98-107); Glucose 143 mg/dL (74-106)
--- NOTE | 2024-11-23 13:26 | DVHSR ---
APPROVED REPORT EXAM: Two-dimensional and M-mode echocardiogram with Doppler and color Doppler. Blood Pressure: 140/94 mmHg INDICATION afib, elevated troponin RISK FACTORS Obesity: Height: 5'8, Weight: 220 DIMENSIONS LVDd4.5 (3.8-5.7cm)LA (2D)4.5 (1.9-4.0cm)Aortic Root3.8 (2.0-3.7cm) LVDs3.3 (2.5-4.0cm)LA (MM) (1.9-4.0cm)Aortic Cusp Exc0.7 (1.5-2.0cm) EF (%) 50.0 (55-70%)Rt. Atrium4.2 (1.9-4.0cm)Asc. Aorta cm IVSd1.2 (0.7-1.1cm)RV (D) (1.8-2.4cm) PWd1.0 (0.7-1.1cm) Mitral Valve MitralMitral Stenosis E wave1.44m/sMV Mean GR.3mmHg A wavem/sMV Peak GR.134mmHg E/A ratio0.02D MVAcm2 DECEL [id number] 1/2 Timems Aortic Valve Aortic ValveAortic Stenosis V11.09m/Wilian Mean GR.40mmHg V23.77m/Wilina Peak GR.57mmHg LVOT Diameter1.8 (1.8-2.4cm)Doppler AVA0.74cm2 Tricuspid Valve TR Velocity3.16m/s [id number] Other Information Quality : Technically LimitedRhythm : Technically limited study due to pt kept moving grabbing my arm and talking during exam Conclusion Technically good study. Sinus tachycardia. Left atrial enlargement with concentric LVH. Thickening and calcification of the aortic leaflets. Diminished excursion of the leaflets. The mitr al and tricuspid are structurally normal. The pulmonic is not clearly visualized. Left ventricular function is diminished. EF is about 45-50% with global hypokinesis. Mild mitral insufficiency. There appears to be significant aortic stenosis with a peak gradient of57 mmHg and a mean gradient of 40 mmHg with an aortic valve area of 0.7 cm2 consistent with severe aort ic stenosis. Moderate tricuspid regurgitation right ventricular pressure of 5 mmHg consistent with s ignificant pulmonary hypertension No pericardial effusion masses or vegetations.
[2024-11-24] VITALS (8 sets, daily range): BP systolic 94–111; BP diastolic 45–62; PULSE 70–114; RESP 19–21; TEMP 97.4–98.3; O2SAT 94–97
[2024-11-24 07:02] LABS: Hematocrit 42.7 % (41.0-53.0); Hemoglobin 14.5 g/dL (13.5-17.5); Mean Corpuscular Hemoglobin 31.6 pg (28.0-32.0); Mean Corpuscular Hgb Conc. 33.9 g/dL (32.0-36.0); Mean Corpuscular Volume 93.4 fL (80.0-100.0); Platelet Count (auto) 107 10^3/uL (140-450); Red Blood Cells 4.57 10^6/uL (4.5-5.90); Red Cell Distribution Width 15.9 % (11.8-14.3); White Blood Cell 9.9 10^3/uL (4.4-10.8)
[2024-11-24 07:09] LABS: Potassium 4.4 mmol/L (3.5-5.1); Sodium 144 mmol/L (136-145)
[2024-11-24 07:10] LABS: Anion Gap 12 (5-15); Carbon Dioxide 21 mmol/L (20-31)
[2024-11-24 07:12] LABS: Chloride 111 mmol/L (98-107)
[2024-11-24 07:16] LABS: BUN/Creatinine Ratio 19.5 (10.0-20.0)
[2024-11-24 07:18] LABS: Band Neutrophils % (manual) 0; Basophils % (manual) 0 (0.0-2.0); Blast Cells 0; Blood Urea Nitrogen 31 mg/dL (9-23); Eosinophils % (manual) 0 (0-7); Glucose 116 mg/dL (74-106); Metamyelocytes % 0; Myelocytes % 0; Promyelocytes % 0; Reactive Lymphocytes 0
[2024-11-24 09:11] LABS: Large Platelets FEW; Lymphocytes % (manual) 27 (10.0-50.0); Monocytes % (manual) 15 (0-12); Platelet Estimate Decrea
--- NOTE | 2024-11-24 15:55 | DVHPN2 ---
Subjective OVERNIGHT EVENTS NOTED. PATIENT HAS PULLED OUT HIS ONE NASAL PACKING CURRENTLY NO BLEEDING. PATIENT LIVES ALONE AND IS NOT A SAFE DISCHARGE. [employer]IC[employer] MAGISTRATE ON BOARD Reviewed: Care Plan Changes from previous H/P or p: No Changes Eyes: No Pain, No Vision change, No Conjunctivae inflammation, No Eyelid inflammation, No Other, No Redness ENT: No Ear pain, No Ear discharge, No Nose pain; Nose discharge; No Nose congestion, No Mouth pain, No Mouth swelling, No Throat pain, No Throat swelling, No Other Cardiovascular: No Chest Pain, No Palpitations, No Orthopnea, No Paroxysmal Noc. Dyspnea, No Edema, No Lt Headedness, No Other Respiratory: No Cough, No Dry; Shortness of breath; No SOB with excertion, No Wheezing, No Hemoptysis, No Pleuritic Pain, No Sputum, No Other Gastrointestinal: No Nausea, No Vomiting, No Abdominal Pain, No Diarrhea, No Constipation, No Melena, No Hematochezia, No Other Genitourinary: No Dysuria, No Frequency, No Incontinence, No Hematuria, No Retention, No Other Musculoskeletal: No other, No neck pain, No shoulder pain, No arm pain, No back pain, No hand pain, No leg pain, No foot pain Skin: No Rash, No Lesions, No Jaundice, No Bruising, No Other Objective Vitals Vital Signs Date Time Temp Pulse Resp B/P (MAP) Pulse Ox O2 Delivery O2 Flow Rate FiO2 11/24/24 13:00 75 21 101/57 (72) 94 11/24/24 09:00 97.9 97.9 11/24/24 08:00 Room Air* 0 21 Intake/Output Intake and Output 11/24/24 07:00 Intake Total 1350 ml Balance 1350 ml Intake Oral 1350 ml # Voids 8 # Bowel Movements 1 Exam HEENT PUPILS ARE REACTIVE NECK IS SUPPLE CV IS S1-S2 REGULAR RATE AND RHYTHM RESPIRATORY DIMINISHED BREATH SOUNDS BASES GI POSITIVE BOWEL SOUND EXTREMITY NO EDEMA ROOF FOREMAN PATIENT REMAINS 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 Medications Current Medications Medications Dose Ordered Sig/Monica Route Start Time Stop Time Status Last Admin Dose Admin Docusate Sodium 100 mg BIDPRN PRN PO 11/22/24 21:00 Acetaminophen 650 mg Q6HP PRN PO 11/22/24 21:00 Acetaminophen/ Hydrocodone Bitart 1 tab Q4HP PRN PO 11/22/24 21:00 Ondansetron HCl 4 mg Q4HP PRN IV 11/22/24 21:00 Enoxaparin Sodium 40 mg DAILY SC 11/23/24 10:00 11/24/24 10:08 40 MG Nitroglycerin 0.4 mg Q5MINP PRN SL 11/22/24 21:00 Morphine Sulfate 2 mg Q30M PRN IV 11/22/24 21:00 Metoprolol Tartrate 25 mg BID PO 11/22/24 22:00 11/24/24 10:08 25 MG Laboratory Results Laboratory Tests 11/24/24 06:15 Chemistry Test 11/24/24 06:15 Calcium Level 10.0 mg/dL (8.7-10.4) Urinalysis Test 11/22/24 19:30 Urine Color Yellow (Yellow) Urine Clarity Clear (Clear) Urine pH 5.0 (5.0-9.0) Urine Specific [place] 1.018 (1.001-1.035) Urine Protein Trace (Negative) H Urine Ketones Trace (Negative) Urine Blood 1+ /uL (Negative) H Urine Nitrite Negative (Negative) Urine Bilirubin Negative (Negative) Urine Urobilinogen Normal mg/dL (Negative) Urine Leukocyte Esterase Negative /uL (Negative) Urine RBC 2 /hpf (0 - 3) Urine WBC 1 /hpf (0 - 3) Urine Squamous Epithelial Cells Few /hpf (<5) Urine Bacteria None seen /hpf (None Seen) Urine Glucose Normal mg/dL (Normal) Assessment/Plan Assessment/Plan 89-YEAR-OLD MALE WITH A KNOWN HISTORY OF CHRONIC AFIB, INITIALLY PRESENTED TO THE HOSPITAL WITH EPISTAXIS STATUS POST NASAL BLEEDING. PATIENT WAS FOUND TO HAVE 1. ACUTE DELIRIUM WITH A POSSIBLE EARLY COGNITIVE DECLINE 2. FOR ASSESSMENT AFIB CURRENTLY IN NORMAL SINUS RHYTHM 3. ELEVATED TROPONIN SUSPECT DEMAND ISCHEMIA 4. NASAL BLEEDING STATUS POST NASAL PACKING -SOCIAL SERVICE CONSULTATION FOR DISCHARGE PLAN Plan discussed with: Patient Date of Service: Nov 24, 2024 Billing Provider: MARILEE BARAJAS MD Common Visit Codes: NOT BILLABLE MARILEE BARAJAS MD Nov 24, 2024 15:55
[2024-11-25] VITALS (18 sets, daily range): BP systolic 81–147; BP diastolic 33–96; PULSE 64–126; RESP 18–26; TEMP 97.6–99.4; O2SAT 94–100
[2024-11-25 06:38] LABS: Potassium 4.4 mmol/L (3.5-5.1); Sodium 142 mmol/L (136-145)
[2024-11-25 06:39] LABS: Anion Gap 11 (5-15); Carbon Dioxide 21 mmol/L (20-31)
[2024-11-25 06:41] LABS: Basophils # (auto) 0 10 ^3/uL (0-0.2); Basophils % (auto) 0.1 % (0.0-2.0); Eosinophils # (auto) 0 10 ^3/uL (0-0.8); Eosinophils % (auto) 0.1 % (0.0-7.0); Hematocrit 39.8 % (41.0-53.0); Hemoglobin 13.6 g/dL (13.5-17.5); Lymphocytes % (auto) 20.9 % (10.0-50.0); Mean Corpuscular Hgb Conc. 34.1 g/dL (32.0-36.0); Mean Corpuscular Volume 93.6 fL (80.0-100.0); Monocytes # (auto) 2.1 10 ^3/uL (0-1.3); Neutrophils # (auto) 5.5 10 ^3/uL (1.6-8.6); Neutrophils % (auto) 56.7 % (37.0-80.0); Nucleated Red Blood Cells % 0.1 %; Platelet Count (auto) 89 10^3/uL (140-450); Red Blood Cells 4.25 10^6/uL (4.5-5.90); Red Cell Distribution Width 16.3 % (11.8-14.3); White Blood Cell 9.7 10^3/uL (4.4-10.8)
[2024-11-25 07:08] LABS: Monocytes % (auto) 22.2 % (0.0-12.0)
[2024-11-25 09:00] LABS: Blood Urea Nitrogen 42 mg/dL (9-23); Chloride 110 mmol/L (98-107); Glucose 110 mg/dL (74-106)
--- NOTE | 2024-11-25 17:03 | DVHPN2 ---
Subjective OVERNIGHT EVENTS NOTED. PATIENT HAS PULLED OUT HIS ONE NASAL PACKING CURRENTLY NO BLEEDING. PATIENT LIVES ALONE AND IS NOT A SAFE DISCHARGE. [employer] ON BOARD Reviewed: Care Plan Changes from previous H/P or p: No Changes Eyes: No Pain, No Vision change, No Conjunctivae inflammation, No Eyelid inflammation, No Other, No Redness ENT: No Ear pain, No Ear discharge, No Nose pain; Nose discharge; No Nose congestion, No Mouth pain, No Mouth swelling, No Throat pain, No Throat swelling, No Other Cardiovascular: No Chest Pain, No Palpitations, No Orthopnea, No Paroxysmal Noc. Dyspnea, No Edema, No Lt Headedness, No Other Respiratory: No Cough, No Dry; Shortness of breath; No SOB with excertion, No Wheezing, No Hemoptysis, No Pleuritic Pain, No Sputum, No Other Gastrointestinal: No Nausea, No Vomiting, No Abdominal Pain, No Diarrhea, No Constipation, No Melena, No Hematochezia, No Other Genitourinary: No Dysuria, No Frequency, No Incontinence, No Hematuria, No Retention, No Other Musculoskeletal: No other, No neck pain, No shoulder pain, No arm pain, No back pain, No hand pain, No leg pain, No foot pain Skin: No Rash, No Lesions, No Jaundice, No Bruising, No Other Objective Vitals Vital Signs Date Time Temp Pulse Resp B/P (MAP) Pulse Ox O2 Delivery O2 Flow Rate FiO2 11/25/24 13:00 97.6 76 22 147/96 (113) 94 97.6 11/25/24 08:00 Room Air* 0 21 Intake/Output Intake and Output 11/25/24 07:00 Intake Total 1665 ml Balance 1665 ml Intake Oral 1665 ml # Voids 8 # Bowel Movements 1 Exam HEENT PUPILS ARE REACTIVE NECK IS SUPPLE CV IS S1-S2 REGULAR RATE AND RHYTHM RESPIRATORY DIMINISHED BREATH SOUNDS BASES GI POSITIVE BOWEL SOUND EXTREMITY NO EDEMA TIRE STRIPPER PATIENT REMAINS 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 Medications Current Medications Medications Dose Ordered Sig/Monica Route Start Time Stop Time Status Last Admin Dose Admin Docusate Sodium 100 mg BIDPRN PRN PO 11/22/24 21:00 Acetaminophen 650 mg Q6HP PRN PO 11/22/24 21:00 Acetaminophen/ Hydrocodone Bitart 1 tab Q4HP PRN PO 11/22/24 21:00 Ondansetron HCl 4 mg Q4HP PRN IV 11/22/24 21:00 Enoxaparin Sodium 40 mg DAILY SC 11/23/24 10:00 11/24/24 10:08 40 MG Nitroglycerin 0.4 mg Q5MINP PRN SL 11/22/24 21:00 Morphine Sulfate 2 mg Q30M PRN IV 11/22/24 21:00 Metoprolol Tartrate 25 mg BID PO 11/22/24 22:00 11/25/24 10:37 25 MG Laboratory Results Laboratory Tests 11/25/24 05:30 Chemistry Test 11/25/24 05:30 Calcium Level 10.0 mg/dL (8.7-10.4) Urinalysis Test 11/22/24 19:30 Urine Color Yellow (Yellow) Urine Clarity Clear (Clear) Urine pH 5.0 (5.0-9.0) Urine Specific [place] 1.018 (1.001-1.035) Urine Protein Trace (Negative) H Urine Ketones Trace (Negative) Urine Blood 1+ /uL (Negative) H Urine Nitrite Negative (Negative) Urine Bilirubin Negative (Negative) Urine Urobilinogen Normal mg/dL (Negative) Urine Leukocyte Esterase Negative /uL (Negative) Urine RBC 2 /hpf (0 - 3) Urine WBC 1 /hpf (0 - 3) Urine Squamous Epithelial Cells Few /hpf (<5) Urine Bacteria None seen /hpf (None Seen) Urine Glucose Normal mg/dL (Normal) Assessment/Plan Assessment/Plan 89-YEAR-OLD MALE WITH A KNOWN HISTORY OF CHRONIC AFIB, INITIALLY PRESENTED TO THE HOSPITAL WITH EPISTAXIS STATUS POST NASAL BLEEDING. PATIENT WAS FOUND TO HAVE 1. ACUTE DELIRIUM WITH A POSSIBLE EARLY COGNITIVE DECLINE 2. FOR ASSESSMENT AFIB CURRENTLY IN NORMAL SINUS RHYTHM 3. ELEVATED TROPONIN SUSPECT DEMAND ISCHEMIA 4. NASAL BLEEDING STATUS POST NASAL PACKING -SOCIAL SERVICE CONSULTATION FOR DISCHARGE PLAN as patient is not a safe discharge. Plan discussed with: Other My Orders Orders - MARILEE BARAJAS MD Procedure Category Date Status Time Communication Order ORDERS 11/24/24 Transmitted 17:48 Date of Service: Nov 25, 2024 Billing Provider: MARILEE BARAJAS MD Common Visit Codes: NOT BILLABLE MARILEE BARAJAS MD Nov 25, 2024 17:03
[2024-11-25] MEDS: SODIUM CHLORIDE 0.9% 500 ML IV ONE (19:20)
[2024-11-25] MEDS: NOREPINEPHRINE 8 MG/250ML KIT 250 ML IV ONE (19:34)
[2024-11-25] MEDS: NOREPINEPHRINE 8 MG/250ML KIT 250 ML IV SCH (19:37)
[2024-11-25] MEDS: METOPROLOL TARTRATE 25 MG TAB PO SCH (20:00)
--- NOTE | 2024-11-25 20:38 | DVH ---
CHEST RADIOGRAPH Indication: SOB Technique: Single frontal view of the chest was obtained Comparison: CHEST PORTABLE on DOS: 11/20/20 FINDINGS: Lines and Tubes: None Lungs: No significant change from 11/20 2020. Mildly more prominent pulmonary vascular markings are s een. Pleura: No effusion. No pneumothorax. Cardiomediastinal contours: Cardiac size is upper limits of normal. Bones: No acute osseous abnormality. IMPRESSION: 1. Findings may represent congestive failure. Other possibly such as pneumonia are in the differentia l. Correlate with clinical setting.
[2024-11-25] MEDS ORDERED: ENOXAPARIN SOD 40 MG/0.4 ML SYRINGE SC SCH (21:00)
[2024-11-26] VITALS (95 sets, daily range): BP systolic 83–127; BP diastolic 41–87; PULSE 102–143; RESP 14–29; TEMP 97–98.1; O2SAT 83–100
[2024-11-26] MEDS: ENOXAPARIN SOD 40 MG/0.4 ML SYRINGE SC SCH (09:36)
[2024-11-26 10:32] LABS: Potassium 4.6 mmol/L (3.5-5.1); Sodium 142 mmol/L (136-145)
[2024-11-26 10:33] LABS: Anion Gap 10 (5-15); Carbon Dioxide 21 mmol/L (20-31)
[2024-11-26 10:34] LABS: Calcium 9.4 mg/dL (8.7-10.4)
[2024-11-26 10:38] LABS: BUN/Creatinine Ratio 23.7 (10.0-20.0); Glucose 94 mg/dL (74-106)
[2024-11-26 10:48] LABS: Blood Urea Nitrogen 56 mg/dL (9-23); Chloride 111 mmol/L (98-107)
[2024-11-26 10:49] LABS: INR 1.52 (0.9-1.15); Partial Thromboplastin Time 27.9 SEC (24.5-34.5); Prothrombin Time 15.6 sec (9.3-11.8)
--- NOTE | 2024-11-26 11:36 | DVHINCON2 ---
Date of service: Nov 26, [address] Capps Reason for Consultation Acute respiratory failure, hypoxic History of Present Illness 89-year-old man history of atrial fibrillation, hypertension who presented with hypotension and elevated troponins. He was found to be tachycardic due to atrial fibrillation with RVR. He was having respiratory distress. He was upgraded to the step-down unit at [facility]. Pulmonary consultation is called due to acute hypoxic respiratory failure and suspected septic shock. Review of systems: 14 point review of systems is negative unless otherwise noted above. Past medical history: Atrial fibrillation, hypertension Past surgical history: None mentioned in prior surgeries. Medications: Reviewed Allergies: No known drug allergies. Family history: No family history of premature CAD. No family history of lung disease. Social history: Nonsmoker. No alcohol or illicit drug use. Family History: Patient reports no known family medical history. Allergies: Coded Allergies: NO KNOWN ALLERGIES (Unverified , 11/20/20) Home Meds Reported Medications Lisinopril (Lisinopril) 10 Mg Tab, 1 TAB PO DAILY for 100 Days, #100 11/23/24 Latanoprost (LATANOPROST) 0.005 % Mitzi, 1 DROP EACHEYE QPM for 60 Days, #7.5 11/23/24 Bicalutamide (Bicalutamide) 50 Mg Tab, 50 MG PO, TAB 11/25/20 Gabapentin (Gabapentin) 300 Mg Cap, 300 MG PO for 30 Days, MG 11/25/20 Simvastatin (Simvastatin) 40 Mg Tab, 40 MG PO DAILY for 30 Days 11/25/20 Current Medications Current Medications Medications (Trade) Dose Ordered Sig/Monica Route PRN Reason Start Time Stop Time Status Last Admin Norepinephrine Bitartrate 250 ml @ 3.75 mls/hr Q24H IV 11/25/24 19:30 11/25/24 19:37 Enoxaparin Sodium (Lovenox) 40 mg Q24H SC 11/25/24 21:00 11/25/24 20:35 DC Metoprolol Tartrate (Lopressor Tablet) 25 mg BID PO 11/25/24 20:00 Hold Enoxaparin Sodium (Lovenox) 40 mg DAILY SC 11/26/24 10:00 Piperacillin Sod/ Tazobactam Sod 100 ml @ 25 mls/hr Q6HR IV 11/26/24 12:00 UNV Vital Signs Vital Signs Date Time Temp Pulse Resp B/P (MAP) Pulse Ox O2 Delivery O2 Flow Rate FiO2 11/26/24 10:45 97.0 121 29 98/61 (73) 94 97.0 11/26/24 08:00 Nasal Cannula* 4 36 Physical Exam Gen.: Patient lying in bed in no apparent distress. On supplemental oxygen. Head: Normocephalic, atraumatic Eyes: EOMI/PERRLA. Ears: Normal hearing. Normal anatomy. Neck/trachea: Trachea midline, supple. Nose: Normal external anatomy. Mouth: Moist mucous membranes. Chest: Decreased air entry bilaterally. No wheezing or rhonchi. Cardio vascular: Positive S1, positive S2. Irregular rate and rhythm. Abdomen: Positive bowel sounds in all 4 quadrants. Soft, non-tender, non- distended. : Deferred. Rectal: Deferred Skin: Warm, dry. Extremities: 2+ radial pulses bilaterally. No lower extremity edema. Neuro: Awake, alert. No gross motor or sensory deficits. Cranial nerves II through XII intact. Gait not assessed. Labs/Diagnostic Data Labs Test 11/26/24 09:53 11/25/24 12:27 11/25/24 05:30 11/24/24 06:15 Range/Units Prothrombin Time 15.6 H 9.3-11.8 sec Prothrombin Time INR 1.52 H 0.9-1.15 Activated Partial Thromboplast Time 27.9 24.5-34.5 SEC Sodium Level 142 136-145 mmol/L Potassium Level 4.6 3.5-5.1 mmol/L Chloride Level 111 H 98-107 mmol/L Carbon Dioxide Level 21 20-31 mmol/L Anion Gap 10 5-15 Blood Urea Nitrogen 56 #H 9-23 mg/dL Creatinine 2.36 H 0.700-1.30 mg/dL Glomerular Filtration Rate Calc 26 >90 mL/min BUN/Creatinine Ratio 23.7 H 10.0-20.0 Serum Glucose 94 74-106 mg/dL Calcium Level 9.4 8.7-10.4 mg/dL POC Glucose 107 H 70-106 mg/dl Eosinophils (%) (Auto) 0.1 0.0-7.0 % Eosinophils # (Auto) 0 0-0.8 10 ^3/uL Basophils # (Auto) 0 0-0.2 10 ^3/uL Nucleated Red Blood Cells 0.1 % Differential Total Cells Counted 100.0 100 Neutrophils % (Manual) 58 37.0-80.0 Band Neutrophils % (Manual) 0 Lymphocytes % (Manual) 27 10.0-50.0 Monocytes % (Manual) 15 H 0-12 Eosinophils % (Manual) 0 0-7 Basophils % (Manual) 0 0.0-2.0 Metamyelocytes % (manual) 0 Myelocytes % (Manual) 0 Promyelocytes % (Manual) 0 Blast Cells % (Manual) 0 Reactive Lymphocytes 0 Platelet Estimate Decrea Large Platelets Few Test 11/23/24 09:46 11/22/24 19:30 Range/Units Troponin I High Sensitivity 45 </=54 ng/L Urine Color Yellow Yellow Urine Clarity Clear Clear Urine pH 5.0 5.0-9.0 Urine Specific [place] 1.018 1.001-1.035 Urine Protein Trace H Negative Urine Ketones Trace Negative Urine Blood 1+ H Negative /uL Urine Nitrite Negative Negative Urine Bilirubin Negative Negative Urine Urobilinogen Normal Negative mg/dL Urine Leukocyte Esterase Negative Negative /uL Urine RBC 2 0 - 3 /hpf Urine WBC 1 0 - 3 /hpf Urine Squamous Epithelial Cells Few <5 /hpf Urine Bacteria None seen None Seen /hpf Urine Glucose Normal Normal mg/dL Assessment Impression: Acute hypoxic respiratory failure Pneumonia likely gram negative Septic shock Atrial fibrillation with RVR Elevated Troponin Obesity BMI 33 CHF exacerbation Acute kidney injury Leukocytosis Pleural effusion Atelectasis Plan: Supplemental oxygen Keep o2 sat above 92% 4 LPM via NC Influenza and COVID swabs were negative. Antibiotics F/u cultures On pressors for hemodynamic support On Levophed at 6 mcg/min Titrate to keep MAP above 65 mmHg. Plan for central line placement for administration of vasoactive medications and blood draws. Monitor renal function due to EVA Increase BUN and creatinine Maintain euvolemia. Monitor electrolytes. Supplement as necessary Monitor ins/outs DVT prophylaxis GI prophylaxis-Protonix Condition: Critical Prognosis: Poor given multiple comorbidities. Rest of plan per hospitalist and other consultants. A total of 36 minutes of critical care time was spent reviewing the patient record, examining the patient, making a diagnostic and therapeutic plan, discussing this plan with the medical personnel, following up on diagnostic studies and following the patient for clinical stability excluding any and all procedures. At least 50% of this time was spent in direct, [id number] contact. Thank you Dr. Capps for allowing me to participate in this patient's care. Further recommendations will depend on patient's clinical course. Please do not hesitate to contact me if you have any questions or concerns. This medical document was created using an electronic medical record system with [employer] dictation system. Although this document has been carefully reviewed, there may still be some phonetic and typographical errors. These areas are purely typographical due to imperfections of the software programs, and do not reflect any compromise in the patient's medical care. Plan discussed with: Patient, Son, Other (SYBIL Carballo, RT, MD) ASA GUILLAUME MD Nov 26, 2024 11:36
--- NOTE | 2024-11-26 12:08 | DVHNC2 ---
Procedure - ULTRASOUND-GUIDED LEFT SUBCLAVIAN INTERNAL JUGULAR CENTRAL VENOUS CANNULATION CPT Codes: 65659 (ultrasound guidance) 56763 (insertion of non-tunneled centrally inserted central venous catheter) 42319 (CXR interpretation) Time out time: 1143 AM Patient medications and allergies reviewed. The risks and benefits of the procedure and the sedation options and risk were discussed with the patient's healthcare proxy. All questions were answered and informed consent was obtained. Patient identification and proposed procedure were verified prior to the procedure by the physician, and a nurse in the patient's room. The heart rate, respiratory rate, oxygen saturations, blood pressure, adequacy of pulmonary ventilation, and response to care were monitored throughout the procedure. The physical status of the patient was reassessed after the proc edure. Date: 11/26/24 PHYSICIAN: Asa Almodovar PREOPERATIVE DIAGNOSIS: septic shock POSTOPERATIVE DIAGNOSIS: septic shock PROCEDURE PERFORMED: Limited Ultrasound-guided LEFT SUBCLAVIAN jugular central line placement. ANESTHESIA: 2 mL of 1% lidocaine plain. ESTIMATED BLOOD LOSS: less than 5 mL. SPECIMENS: None. COMPLICATIONS: None. INDICATIONS FOR PROCEDURE: The patient is in need of large bore IV access for administration of fluids, including blood products and vasoactive drugs, possible transvenous cardiac pacing and CVP monitoring for hemodynamic instability. DESCRIPTION OF PROCEDURE IN DETAIL: The patient was lying in the Trendelenburg position with head turned 30 degrees away from the insertion site. The skin was thoroughly sponged with chlorhexidine and allowed to dry. All persons involved were shielded with hair nets, face masks and sterile gowns. With sterile-gloved hands the right neck area was draped with the large disposable sterile field provided in the pre-manufactured kit. The skin and subcutaneous tissues superficial to the LEFT SUBCLAVIAN vein were anesthetized with 2 mL of 1% lidocaine. The LEFT SUBCLAVIAN vein was identified on ultrasound using the linear ultrasound probe in the transverse orientation. The subclavian artery was identified and avoided utilizing color-flow. The subclavian vein was then placed in the center of the ultrasound field and compressed for patency. A movement artifact was identified as the needle was advanced through the skin and advanced toward the vessel. A real time hyperechoic signal revealed visualization of vascular needle entry into the lumen as blood was noted to flashback in the sy ringe. The needle was then held in place while the guide wire was advanced. The needle was then removed. Direct visualization of guide wire location within the vein was noted on ultrasound indicating proper placement and was document in the electronic medical record chart. A skin dilator was advanced over the guidewire and removed, and the triple-lumen catheter was then advanced over the guide wire into proper position. The guide wire was removed and discarded. The ports were aspirated which showed good blood return and then carefully flushed with normal saline. The catheter was stabilized and sutured to the skin with 2-0 silk at 2 anchor points. A sterile bio-patch and dressing was placed over the catheter, including the insertion site. The patient tolerated the procedure well. A chest x-ray was ordered for position confirmation. I reviewed the image immediately after it was taken at bedside. Post-procedure chest x-ray demonstrates the central line in the superior vena and no evidence of any pneumothorax. An image recording of the procedure accompanies the chart. ASA ALMODOVAR MD Nov 26, 2024 12:08
[2024-11-26] MEDS: PIPERACILLIN-TAZOB 3.375GM 100 ML IV ONE (12:10)
[2024-11-26] MEDS: PANTOPRAZOLE 40 MG/10 ML VIAL INJ IV ONE (12:10)
[2024-11-26 12:33] LABS: Basophils # (auto) 0.1 10 ^3/uL (0-0.2); Basophils % (auto) 0.3 % (0.0-2.0); Eosinophils # (auto) 0 10 ^3/uL (0-0.8); Hematocrit 37.4 % (41.0-53.0); Hemoglobin 12.5 g/dL (13.5-17.5); Lymphocytes # (auto) 1.4 10 ^3/uL (0.4-5.4); Lymphocytes % (auto) 4.7 % (10.0-50.0); Mean Corpuscular Hemoglobin 31.3 pg (28.0-32.0); Mean Corpuscular Hgb Conc. 33.3 g/dL (32.0-36.0); Mean Corpuscular Volume 94.1 fL (80.0-100.0); Monocytes # (auto) 3.2 10 ^3/uL (0-1.3); Monocytes % (auto) 10.8 % (0.0-12.0); Neutrophils # (auto) 24.8 10 ^3/uL (1.6-8.6); Neutrophils % (auto) 84.2 % (37.0-80.0); Platelet Count (auto) 81 10^3/uL (140-450); Red Blood Cells 3.97 10^6/uL (4.5-5.90); Red Cell Distribution Width 16.5 % (11.8-14.3); White Blood Cell 29.5 10^3/uL (4.4-10.8)
[2024-11-26] MEDS: HEPARIN DRIP/D5W 100UNITS/ML 250 ML IV SCH (12:36)
[2024-11-26] MEDS: LEVALBUTEROL HCL 1.25 MG/3 ML NEB NEB SCH (12:52)
[2024-11-26] MEDS: IPRATROPIUM BROM 0.5 MG/2.5ML INH SOL NEB SCH (12:52)
--- NOTE | 2024-11-26 13:11 | DVH ---
CHEST RADIOGRAPH Indication: CENTRAL LINE PLACEMENT Technique: Single frontal view of the chest was obtained Comparison: XY CHEST PORTABLE on DOS: 11/25/24, CHEST PORTABLE on DOS: 11/20/20 FINDINGS: Lines and Tubes: Left subclavian approach central venous catheter terminating over the proximal SVC. Lungs: No focal consolidation. Diffuse interstitial prominence. Indistinctness of the left hemidiaphragm No pneumothorax. Cardiomediastinal contours: Moderate cardiomegaly with moderate atherosclerotic calcification and unc oiling of the aorta. Bones: No acute osseous abnormality. IMPRESSION: Left subclavian approach central venous catheter terminating over the proximal SVC. Moderate cardiomegaly with findings suggestive of congestive heart failure ; improved from prior imag ing. Underlying infectious process can not be excluded. Possible trace left-sided pleural effusion.
[2024-11-26 13:18] LABS: COVID19 ANTIGEN SOFIA FIA NEGATIVE (NEGATIVE); Rapid Influenza A Negative (Negative); Rapid Influenza B Negative (Negative)
[2024-11-26] MEDS ORDERED: VANCOMYCIN PER PHARMACY 0 MG IV SCH (15:15)
[2024-11-26 15:29] LABS: Hematocrit 39.5 % (41.0-53.0); Hemoglobin 13.2 g/dL (13.5-17.5); Mean Corpuscular Hemoglobin 31.5 pg (28.0-32.0); Mean Corpuscular Hgb Conc. 33.5 g/dL (32.0-36.0); Mean Corpuscular Volume 94.1 fL (80.0-100.0); Platelet Count (auto) 89 10^3/uL (140-450); Red Blood Cells 4.19 10^6/uL (4.5-5.90); Red Cell Distribution Width 16.3 % (11.8-14.3); White Blood Cell 26.5 10^3/uL (4.4-10.8)
[2024-11-26 15:40] LABS: Basophils % (manual) 0 (0.0-2.0); Blast Cells 0; Eosinophils % (manual) 0 (0-7); Metamyelocytes % 0; Myelocytes % 0; Promyelocytes % 0; Reactive Lymphocytes 0
[2024-11-26] MEDS ORDERED: VANCOMYCIN 1.5GM/250ML 250 ML IV ONE (15:45)
[2024-11-26] MEDS ORDERED: VANCOMYCIN 1.5GM/300ML 300 ML IV ONE (15:45)
[2024-11-26 15:47] LABS: Chloride 112 mmol/L (98-107); Potassium 4.5 mmol/L (3.5-5.1); Sodium 139 mmol/L (136-145)
[2024-11-26 15:48] LABS: Anion Gap 11 (5-15); Calcium 9.1 mg/dL (8.7-10.4)
[2024-11-26 15:51] LABS: Carbon Dioxide 16 mmol/L (20-31)
[2024-11-26 15:53] LABS: BUN/Creatinine Ratio 18.8 (10.0-20.0)
--- NOTE | 2024-11-26 16:07 | DVHPN2 ---
Subjective OVERNIGHT EVENTS NOTED. Patient's systolic blood pressure less than 90, requiring IV bolus, WBC trended up although afebrile, blood cultures has been drawn UA urine culture will be done antibiotics will be started. Reviewed: Care Plan Changes from previous H/P or p: No Changes Eyes: No Pain, No Vision change, No Conjunctivae inflammation, No Eyelid inflammation, No Other, No Redness ENT: No Ear pain, No Ear discharge, No Nose pain; Nose discharge; No Nose congestion, No Mouth pain, No Mouth swelling, No Throat pain, No Throat swelling, No Other Cardiovascular: No Chest Pain, No Palpitations, No Orthopnea, No Paroxysmal Noc. Dyspnea, No Edema, No Lt Headedness, No Other Respiratory: No Cough, No Dry; Shortness of breath; No SOB with excertion, No Wheezing, No Hemoptysis, No Pleuritic Pain, No Sputum, No Other Gastrointestinal: No Nausea, No Vomiting, No Abdominal Pain, No Diarrhea, No Constipation, No Melena, No Hematochezia, No Other Genitourinary: No Dysuria, No Frequency, No Incontinence, No Hematuria, No Retention, No Other Musculoskeletal: No other, No neck pain, No shoulder pain, No arm pain, No back pain, No hand pain, No leg pain, No foot pain Skin: No Rash, No Lesions, No Jaundice, No Bruising, No Other Objective Vitals Vital Signs Date Time Temp Pulse Resp B/P (MAP) Pulse Ox O2 Delivery O2 Flow Rate FiO2 11/26/24 15:30 124 24 95/64 (74) 100 11/26/24 14:01 5.0 40 11/26/24 13:28 Nasal Cannula* 11/26/24 12:00 97.9 97.9 Intake/Output Intake and Output 11/26/24 07:00 Intake Total 1097.434 ml Output Total 150 ml Balance 947.434 ml Intake Oral 500 ml IV Total 597.434 ml Output Urine Total 150 ml # Voids 2 Exam HEENT PUPILS ARE REACTIVE NECK IS SUPPLE CV IS S1-S2 REGULAR RATE AND RHYTHM RESPIRATORY DIMINISHED BREATH SOUNDS BASES GI POSITIVE BOWEL SOUND EXTREMITY 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 Medications Current Medications Medications Dose Ordered Sig/Monica Route Start Time Stop Time Status Last Admin Dose Admin Docusate Sodium 100 mg BIDPRN PRN PO 11/22/24 21:00 Acetaminophen 650 mg Q6HP PRN PO 11/22/24 21:00 Acetaminophen/ Hydrocodone Bitart 1 tab Q4HP PRN PO 11/22/24 21:00 Ondansetron HCl 4 mg Q4HP PRN IV 11/22/24 21:00 Nitroglycerin 0.4 mg Q5MINP PRN SL 11/22/24 21:00 Morphine Sulfate 2 mg Q30M PRN IV 11/22/24 21:00 Norepinephrine Bitartrate 250 ml @ 3.75 mls/hr Q24H IV 11/25/24 19:30 11/25/24 19:37 3.75 MLS/HR Metoprolol Tartrate 25 mg BID PO 11/25/24 20:00 Hold Piperacillin Sod/ Tazobactam Sod 100 ml @ 25 mls/hr Q8H IV 11/26/24 17:00 Ipratropium [place] 0.5 mg Q6HR NEB 11/26/24 12:00 11/26/24 12:52 0.5 MG Levalbuterol HCl 1.25 mg Q6HR NEB 11/26/24 12:00 11/26/24 12:52 1.25 MG Pantoprazole Sodium 40 mg DAILY IV 11/27/24 10:00 Heparin Sodium/ Dextrose 250 ml @ 12 mls/hr [id number] IV 11/26/24 11:30 11/26/24 12:36 12 MLS/HR Vancomycin HCl 0 ml @ 0 mls/hr UD IV 11/26/24 15:15 Laboratory Results Laboratory Tests 11/26/24 15:03 Chemistry Test 11/26/24 09:53 11/26/24 15:03 Calcium Level 9.4 mg/dL (8.7-10.4) 9.1 mg/dL (8.7-10.4) Coagulation Test 11/26/24 09:53 Prothrombin Time 15.6 sec (9.3-11.8) H Prothrombin Time INR 1.52 (0.9-1.15) H Activated Partial Thromboplast Time 27.9 SEC (24.5-34.5) Cardiac Markers Test 11/26/24 15:03 B-Type Natriuretic Peptide Pending Urinalysis Test 11/22/24 19:30 Urine Color Yellow (Yellow) Urine Clarity Clear (Clear) Urine pH 5.0 (5.0-9.0) Urine Specific [place] 1.018 (1.001-1.035) Urine Protein Trace (Negative) H Urine Ketones Trace (Negative) Urine Blood 1+ /uL (Negative) H Urine Nitrite Negative (Negative) Urine Bilirubin Negative (Negative) Urine Urobilinogen Normal mg/dL (Negative) Urine Leukocyte Esterase Negative /uL (Negative) Urine RBC 2 /hpf (0 - 3) Urine WBC 1 /hpf (0 - 3) Urine Squamous Epithelial Cells Few /hpf (<5) Urine Bacteria None seen /hpf (None Seen) Urine Glucose Normal mg/dL (Normal) Microbiology Microbiology Date/Time Source Procedure Growth Status 11/25/24 23:45 Nose MRSA Screen - Final Complete Assessment/Plan Assessment/Plan 89-YEAR-OLD MALE WITH A KNOWN HISTORY OF CHRONIC AFIB, INITIALLY PRESENTED TO THE HOSPITAL WITH EPISTAXIS STATUS POST NASAL BLEEDING. PATIENT WAS FOUND TO HAVE 1. ACUTE DELIRIUM WITH A POSSIBLE EARLY COGNITIVE DECLINE 2. Chronic AFib 3. ELEVATED TROPONIN SUSPECT DEMAND ISCHEMIA 4. NASAL BLEEDING STATUS POST NASAL PACKING 5. Agitation/behavior disorder 6. Leukocytosis rule out sepsis 7. Acute kidney injury -blood cultures x2, UA urine culture, IV antibiotics, infectious disease consultation. Plan discussed with: Patient, Other My Orders Orders - MARILEE BARAJAS MD Procedure Category Date Status Time Norepinephrine 8 PHA 11/25/24 In Process Mg/250ml Kit 19:30 Blood Culture JOSE L 11/26/24 In Process 11:03 *Consult CONS 11/26/24 Transmitted / 11:03 * Picc Line Consult CONS 11/26/24 Transmitted 11:05 Piperacillin-Tazob PHA 11/26/24 In Process 3.375gm (Zosyn 3.375g 17:00 Respiratory Culture JOSE L 11/26/24 Uncollected W/ Gs 11:08 Vancomycin Per PHA 11/26/24 In Process Pharmacy 15:15 * Infectious Ant- CONS 11/26/24 Transmitted Mallad 15:14 Creatinine LAB 11/27/24 Verified 04:00 Vancomycin,Random LAB 11/27/24 Verified 04:00 Vancomycin PHA 11/26/24 In Process 1.5gm/250ml 15:45 Date of Service: Nov 26, 2024 Billing Provider: MARILEE BARAJAS MD Common Visit Codes: NOT BILLABLE MARILEE BARAJAS MD Nov 26, 2024 16:07
--- NOTE | 2024-11-26 16:07 | DVHINCON2 ---
Date Seen: Nov 26, 2024 Referring Physician MARICRUZ Galan Reason for Consultation Afib History of Present Illness This is an 89-year-old male patient who presents to the emergency room with chief complaint of epistaxis for four days prior to emergency room arrival. The patient decided come to the emergency room for further evaluation. Initial twelve lead electrocardiogram reveals atrial fibrillation with rate in the 120s. Cardiology has now been consulted for atrial fibrillation.The patient is a very poor historian. Significant past medical history includes coronary artery disease status post PTCA x1 MICHEL, atrial fibrillation, hypertension, and hard of hearing. The patient denies taking any anticoagulation or blood thinners at home. 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 The patient was able to provide a stent card in which it was noted that he has one stent in place, card does not state the year or date in which the stent was placed. Past Medical History Past medical history reviewed. No other significant than mentioned above. Past Surgical History Denies all previous surgeries Family History: Patient reports no known family medical history. Family History Family history reviewed. Social History Denies the use of tobacco, alcohol or illicit drugs. Allergies: Coded Allergies: NO KNOWN ALLERGIES (Unverified , 11/20/20) Home Meds Reported Medications Lisinopril (Lisinopril) 10 Mg Tab, 1 TAB PO DAILY for 100 Days, #100 11/23/24 Latanoprost (LATANOPROST) 0.005 % Mitzi, 1 DROP EACHEYE QPM for 60 Days, #7.5 11/23/24 Bicalutamide (Bicalutamide) 50 Mg Tab, 50 MG PO, TAB 11/25/20 Gabapentin (Gabapentin) 300 Mg Cap, 300 MG PO for 30 Days, MG 11/25/20 Simvastatin (Simvastatin) 40 Mg Tab, 40 MG PO DAILY for 30 Days 11/25/20 Home Meds Home medications reviewed. Current Medications Current Medications Medications (Trade) Dose Ordered Sig/Monica Route PRN Reason Start Time Stop Time Status Last Admin Norepinephrine Bitartrate 250 ml @ 3.75 mls/hr Q24H IV 11/25/24 19:30 11/25/24 19:37 Enoxaparin Sodium (Lovenox) 40 mg Q24H SC 11/25/24 21:00 11/25/24 20:35 DC Metoprolol Tartrate (Lopressor Tablet) 25 mg BID PO 11/25/24 20:00 Hold Enoxaparin Sodium (Lovenox) 40 mg DAILY SC 11/26/24 10:00 11/26/24 11:52 DC Piperacillin Sod/ Tazobactam Sod 100 ml @ 25 mls/hr Q8H IV 11/26/24 17:00 Ipratropium [place] (Atrovent Medneb) 0.5 mg Q6HR NEB 11/26/24 12:00 11/26/24 12:52 Levalbuterol HCl (Xopenex Medneb) 1.25 mg Q6HR NEB 11/26/24 12:00 11/26/24 12:52 Pantoprazole Sodium (Protonix) 40 mg DAILY IV 11/27/24 10:00 Heparin Sodium/ Dextrose 250 ml @ 12 mls/hr [id number] IV 11/26/24 11:30 11/26/24 12:36 Vancomycin HCl 0 ml @ 0 mls/hr UD IV 11/26/24 15:15 Review of Systems Constitutional: No symptom reported Ears, Nose, & Throat: Epistaxis Eyes: No symptom reported Neurological: No symptoms reported Pulmonary/Respiratory: No symptoms reported Cardiovascular: No symptom reported Gastrointestinal: No symptom reported Genitourinary: No symptom reported Musculoskeletal: No symptom reported Skin: No symptom reported Psychiatric: No symptom reported Endocrine: No symptom reported Hematologic/Lymphatic: No symptom reported Vital Signs Vital Signs Date Time Temp Pulse Resp B/P (MAP) Pulse Ox O2 Delivery O2 Flow Rate FiO2 11/26/24 15:30 124 24 95/64 (74) 100 11/26/24 14:01 5.0 40 11/26/24 13:28 Nasal Cannula* 11/26/24 12:00 97.9 97.9 Physical Exam General Appearance: Cooperative. Obese Pulmonary/Respiratory: Clear, bilateral breaths sounds. Cardiovascular/Chest: Irregular rate and rhythm. Crescendo decrescendo. Systolic murmur grade V/ Peripheral Pulses: 2+ Radial (R). 2+ Radial (L). 2+ Pedal (R). 2+ Pedal (L) Abdominal Exam: Normal bowel sounds. Ankle Exam: Negative ankle edema Lower extremities: Negative lower extremity edema Neuro/Mental Status: A/OX4, coherent. Thoughts/Psych: Normal thought pattern. Appropriate mood and affect. Good judgment and insight. Appearance: No acute distress. Skin Exam: Generalized ecchymosis. Skin warm and dry Labs/Diagnostic Data Labs Test 11/26/24 15:03 11/26/24 11:40 11/26/24 11:20 11/26/24 09:53 Range/Units White Blood Count 26.5 H 4.4-10.8 10^3/uL Red Blood Count 4.19 L 4.5-5.90 10^6/uL Hemoglobin 13.2 L 13.5-17.5 g/dL Hematocrit 39.5 L 41.0-53.0 % Mean Corpuscular Volume 94.1 80.0-100.0 fL Mean Corpuscular Hemoglobin 31.5 28.0-32.0 pg Mean Corpuscular Hemoglobin Concent 33.5 32.0-36.0 g/dL Red Cell Distribution Width 16.3 H 11.8-14.3 % Platelet Count 89 L 140-450 10^3/uL Mean Platelet Volume 11.2 H 6.9-10.8 fL Neutrophils (%) (Auto) 37.0-80.0 % Lymphocytes (%) (Auto) 10.0-50.0 % Monocytes (%) (Auto) 0.0-12.0 % Basophils (%) (Auto) 0.0-2.0 % Neutrophils # (Auto) 1.6-8.6 10 ^3/uL Lymphocytes # (Auto) 0.4-5.4 10 ^3/uL Monocytes # (Auto) 0-1.3 10 ^3/uL Sodium Level 139 136-145 mmol/L Potassium Level 4.5 3.5-5.1 mmol/L Chloride Level 112 H 98-107 mmol/L Carbon Dioxide Level 16 L 20-31 mmol/L Anion Gap 11 5-15 Lactic Acid Level 2.0 0.4-2.0 mmol/L Calcium Level 9.1 8.7-10.4 mg/dL Influenza Type A Antigen Negative Negative Influenza Type B Antigen Negative Negative SARS-CoV-2 Antigen (Rapid) Negative NEGATIVE Eosinophils (%) (Auto) 0.0 0.0-7.0 % Eosinophils # (Auto) 0 0-0.8 10 ^3/uL Basophils # (Auto) 0.1 0-0.2 10 ^3/uL Nucleated Red Blood Cells 0.0 % Prothrombin Time 15.6 H 9.3-11.8 sec Prothrombin Time INR 1.52 H 0.9-1.15 Activated Partial Thromboplast Time 27.9 24.5-34.5 SEC Test 11/25/24 12:27 11/24/24 06:15 11/23/24 09:46 11/22/24 19:30 Range/Units POC Glucose 107 H 70-106 mg/dl Large Platelets Few Troponin I High Sensitivity 45 </=54 ng/L Urine Color Yellow Yellow Urine Clarity Clear Clear Urine pH 5.0 5.0-9.0 Urine Specific [place] 1.018 1.001-1.035 Urine Protein Trace H Negative Urine Ketones Trace Negative Urine Blood 1+ H Negative /uL Urine Nitrite Negative Negative Urine Bilirubin Negative Negative Urine Urobilinogen Normal Negative mg/dL Urine Leukocyte Esterase Negative Negative /uL Urine RBC 2 0 - 3 /hpf Urine WBC 1 0 - 3 /hpf Urine Squamous Epithelial Cells Few <5 /hpf Urine Bacteria None seen None Seen /hpf Urine Glucose Normal Normal mg/dL Microbiology Date/Time Source Procedure Growth Status 11/25/24 23:45 Nose MRSA Screen - Final Complete Assessment Atrial fibrillation with rapid ventricular response Sepsis NSTEMI type II secondary to above Acute on chronic decompensated HFmrEF, NYHA class III Coronary artery disease status post PTCA x1 MICHEL Severe aortic stenosis Moderate tricuspid valve regurgitation History of hypertension now with hypotension Acute kidney injury Thrombocytopenia Obesity Plan/Recommendation We will continue with the following plan/recommendations (Dr. Martin): * Echocardiogram reveals EF 45-50% * Aortic valve area 0.74 cm2, peak gradient 57 mmHg, mean gradient 40 mmHg * [id number] VASc score: 5 points, HAS-BLED score: 2 points * Continue heparin drip (Closely monitor H&H and platelet count) * Initiate beta-akshat for rate control when off vasopressors * Vasopressors for hemodynamic support * Initiate GDMT for CHF when off vasopressor support * Antibiotics per primary care team Case discussed with . Okay to keep patient on heparin drip for anticoagulation given atrial fibrillation, we will closely monitor hemoglobin and hematocrit and platelet count. Given the patient's severe aortic stenosis, he would need further evaluation, possibly outpatient workup for TAVR. Thank you for allowing us to care for this patient. Please call with any questions or concerns. Critical care time spent: 44 minutes This medical document was created using an electronic medical record system with voice recognition software and computerized dictation system. Although this document has been carefully reviewed, there might still be some phonetic and typographical errors. Occasional wrong-word or ``sound-alike substitutions may have occurred due to the inherent limitations of voice recognition software. These areas are purely typographical due to imperfections of the software programs and do not reflect any compromise in the patient's medical care. Please read the chart carefully and recognize, using context, where these substitutions have occurred. Plan discussed with: Patient NYHA Physical activity limitations: Class3(Marked) ordinary (activity causes symtoms) Date of Service: Nov 26, 2024 Billing Provider: GLORIA SCHAFFER Cardiology Common Codes: 59510-[id number] INP/OBS CARE (High) Cardiology Consultation Codes: [id number] CONSULT <45MIN GLORIA SCHAFFER Nov 26, 2024 16:07
[2024-11-26 16:11] LABS: Blood Urea Nitrogen 42 mg/dL (9-23); Glucose 164 mg/dL (74-106)
[2024-11-26] MEDS: CEFEPIME 1GM/ 50ML 50 ML IV SCH (16:37)
[2024-11-26] MEDS: SODIUM CHLORIDE 0.9% 1,000 ML IV SCH ×2 (16:37→18:17)
[2024-11-26 16:42] LABS: Anisocytosis Slight; Band Neutrophils % (manual) 9; Large Platelets FEW; Lymphocytes % (manual) 9 (10.0-50.0); Macrocytosis Slight; Monocytes % (manual) 7 (0-12); Platelet Estimate Decrea
[2024-11-26] MEDS ORDERED: PIPERACILLIN-TAZOB 3.375GM 100 ML IV SCH (17:00)
[2024-11-26] MEDS: PHENYLEPHRINE IV 250 ML IV SCH (18:15)
[2024-11-26] MEDS: PHENYLEPHRINE IV 250 ML IV ONE (18:16)
[2024-11-26] MEDS: DIGOXIN (250MCG/ML) 2 ML AMPULE IV ONE (18:27)
[2024-11-26 18:54] LABS: INR 1.57 (0.9-1.15); Partial Thromboplastin Time 57.2 SEC (24.5-34.5); Prothrombin Time 16.1 sec (9.3-11.8)
[2024-11-26 20:01] LABS: Alanine Aminotransferase 384 U/L (7-40); Aspartate Aminotransferase 530 U/L (13-40)
--- NOTE | 2024-11-26 20:26 | DVHINCON2 ---
Date of service: Nov 26, 2024 Referring Physician Génesis Rasmussen MD Reason for Consultation septic shock History of Present Illness This is a 89 year-old male Presented to the emergency department with complaints of recurrent nosebleeds. While in the emergency department troponin levels were mildly elevated 61/58, patient denies any chest pain . Patient was noted to be sustaining a fib 130 to 140s, With increased respiratory effort. Patient states he does not know what medication he is on, Does not know if he has followed up with cardiology. [place] Past Medical History Cardiovascular: AFIB, HTN Past Surgical History None Family History: Patient reports no known family medical history. Family History None Social History Smoke: No ALCOHOL: none Drugs: None Lives: Alone Allergies: Coded Allergies: NO KNOWN ALLERGIES (Unverified , 11/20/20) Allergies None Home Meds Reported Medications Lisinopril (Lisinopril) 10 Mg Tab, 1 TAB PO DAILY for 100 Days, #100 11/23/24 Latanoprost (LATANOPROST) 0.005 % Mitzi, 1 DROP EACHEYE QPM for 60 Days, #7.5 11/23/24 Bicalutamide (Bicalutamide) 50 Mg Tab, 50 MG PO, TAB 11/25/20 Gabapentin (Gabapentin) 300 Mg Cap, 300 MG PO for 30 Days, MG 11/25/20 Simvastatin (Simvastatin) 40 Mg Tab, 40 MG PO DAILY for 30 Days 11/25/20 Current Medications Current Medications Medications (Trade) Dose Ordered Sig/Monica Route PRN Reason Start Time Stop Time Status Last Admin Enoxaparin Sodium (Lovenox) 40 mg Q24H SC 11/25/24 21:00 11/25/24 20:35 DC Enoxaparin Sodium (Lovenox) 40 mg DAILY SC 11/26/24 10:00 11/26/24 11:52 DC Piperacillin Sod/ Tazobactam Sod 100 ml @ 25 mls/hr Q8H IV 11/26/24 17:00 11/26/24 16:14 DC Ipratropium [place] (Atrovent Medneb) 0.5 mg Q6HR NEB 11/26/24 12:00 11/26/24 18:17 Levalbuterol HCl (Xopenex Medneb) 1.25 mg Q6HR NEB 11/26/24 12:00 11/26/24 18:17 Pantoprazole Sodium (Protonix) 40 mg DAILY IV 11/27/24 10:00 Heparin Sodium/ Dextrose 250 ml @ 12 mls/hr [id number] IV 11/26/24 11:30 11/26/24 12:36 Vancomycin HCl 0 ml @ 0 mls/hr UD IV 11/26/24 15:15 11/26/24 16:13 DC Cefepime HCl 50 ml @ 12.5 mls/hr DAILY IV 11/26/24 17:00 11/26/24 16:37 Sodium Chloride 1,000 ml @ 125 mls/hr Q8H IV 11/26/24 16:15 11/26/24 18:08 DC 11/26/24 16:37 Phenylephrine HCl 250 ml @ 30 mls/hr Q8H20M IV 11/26/24 18:00 11/26/24 18:15 Sodium Chloride 1,000 ml @ 70 mls/hr [id number] IV 11/26/24 18:15 11/26/24 18:17 Review of Systems Constitutional: No: Fever, Chills, Sweats, Weakness, Malaise, Other Eyes: No: Pain, Vision change, Conjunctivae inflammation, Eyelid inflammation, Other, Redness ENT: Nose discharge; No: Ear pain, Ear discharge, Nose pain, Nose congestion, Mouth pain, Mouth swelling, Throat pain, Throat swelling, Other Respiratory: Shortness of breath; No: Cough, Dry, SOB with excertion, Wheezing, Hemoptysis, Pleuritic Pain, Sputum, Wheezing, Other Cardiovascular: No: Chest Pain, Palpitations, Orthopnea, Paroxysmal Noc. Dyspnea, Edema, Lt Headedness, Other Gastrointestinal: No: Nausea, Vomiting, Abdominal Pain, Diarrhea, Constipation, Melena, Hematochezia, Other Genitourinary: No Dysuria, No Frequency, No Incontinence, No Hematuria, No Retention, No Other Musculoskeletal: No: other, neck pain, shoulder pain, arm pain, back pain, hand pain, leg pain, foot pain Skin: No: Rash, Lesions, Jaundice, Bruising, Other Neurological: No: Weakness, Numbness, Incoordination, Change in speech, Confusion, Seizures, Other Allergies: Vital Signs Vital Signs Date Time Temp Pulse Resp B/P (MAP) Pulse Ox O2 Delivery O2 Flow Rate FiO2 11/26/24 19:45 121 25 97/63 (74) 99 11/26/24 18:17 Nasal Cannula 2.0 11/26/24 18:17 28 11/26/24 16:00 98.0 98.0 Physical Exam General Appearance: Alert, Cooperative, mild distress HEENT: Atraumatic, PERRLA, EOMI Respiratory: Clear to auscultation, Normal air movement Cardiovascular: Normal S1, Normal S2, Other (Afib accelerated) Abdominal: Normal bowel sounds, Soft, No tenderness Extremities: No clubbing, No cyanosis, No edema Skin: No rashes Neuro: Normal speech, Strength at 5/5 X4 ext Psych/Mental Status: Mental status NL, Mood NL Labs/Diagnostic Data Labs Test 11/26/24 18:26 11/26/24 15:03 11/26/24 11:40 11/26/24 11:20 Range/Units Prothrombin Time 16.1 H 9.3-11.8 sec Prothrombin Time INR 1.57 H 0.9-1.15 Activated Partial Thromboplast Time 57.2 H 24.5-34.5 SEC White Blood Count 26.5 H 4.4-10.8 10^3/uL Red Blood Count 4.19 L 4.5-5.90 10^6/uL Hemoglobin 13.2 L 13.5-17.5 g/dL Hematocrit 39.5 L 41.0-53.0 % Mean Corpuscular Volume 94.1 80.0-100.0 fL Mean Corpuscular Hemoglobin 31.5 28.0-32.0 pg Mean Corpuscular Hemoglobin Concent 33.5 32.0-36.0 g/dL Red Cell Distribution Width 16.3 H 11.8-14.3 % Platelet Count 89 L 140-450 10^3/uL Mean Platelet Volume 11.2 H 6.9-10.8 fL Neutrophils (%) (Auto) 37.0-80.0 % Lymphocytes (%) (Auto) 10.0-50.0 % Monocytes (%) (Auto) 0.0-12.0 % Basophils (%) (Auto) 0.0-2.0 % Neutrophils # (Auto) 1.6-8.6 10 ^3/uL Lymphocytes # (Auto) 0.4-5.4 10 ^3/uL Monocytes # (Auto) 0-1.3 10 ^3/uL Differential Total Cells Counted 100.0 100 Neutrophils % (Manual) 75 37.0-80.0 Band Neutrophils % (Manual) 9 Lymphocytes % (Manual) 9 L 10.0-50.0 Monocytes % (Manual) 7 0-12 Eosinophils % (Manual) 0 0-7 Basophils % (Manual) 0 0.0-2.0 Metamyelocytes % (manual) 0 Myelocytes % (Manual) 0 Promyelocytes % (Manual) 0 Blast Cells % (Manual) 0 Reactive Lymphocytes 0 Platelet Estimate Decrea Large Platelets Few Anisocytosis (manual) Slight Microcytosis Slight Macrocytosis Slight Sodium Level 139 136-145 mmol/L Potassium Level 4.5 3.5-5.1 mmol/L Chloride Level 112 H 98-107 mmol/L Carbon Dioxide Level 16 L 20-31 mmol/L Anion Gap 11 5-15 Blood Urea Nitrogen 42 #H 9-23 mg/dL Creatinine 2.23 H 0.700-1.30 mg/dL Glomerular Filtration Rate Calc 28 >90 mL/min BUN/Creatinine Ratio 18.8 10.0-20.0 Serum Glucose 164 H 74-106 mg/dL Lactic Acid Level 2.0 0.4-2.0 mmol/L Calcium Level 9.1 8.7-10.4 mg/dL Aspartate Amino Transferase (AST) 530 H 13-40 U/L Alanine Aminotransferase (ALT) 384 H 7-40 U/L B-Type Natriuretic Peptide 1009.66 0-100 pg/mL Influenza Type A Antigen Negative Negative Influenza Type B Antigen Negative Negative SARS-CoV-2 Antigen (Rapid) Negative NEGATIVE Eosinophils (%) (Auto) 0.0 0.0-7.0 % Eosinophils # (Auto) 0 0-0.8 10 ^3/uL Basophils # (Auto) 0.1 0-0.2 10 ^3/uL Nucleated Red Blood Cells 0.0 % Test 11/25/24 12:27 11/23/24 09:46 11/22/24 19:30 Range/Units POC Glucose 107 H 70-106 mg/dl Troponin I High Sensitivity 45 </=54 ng/L Urine Color Yellow Yellow Urine Clarity Clear Clear Urine pH 5.0 5.0-9.0 Urine Specific [place] 1.018 1.001-1.035 Urine Protein Trace H Negative Urine Ketones Trace Negative Urine Blood 1+ H Negative /uL Urine Nitrite Negative Negative Urine Bilirubin Negative Negative Urine Urobilinogen Normal Negative mg/dL Urine Leukocyte Esterase Negative Negative /uL Urine RBC 2 0 - 3 /hpf Urine WBC 1 0 - 3 /hpf Urine Squamous Epithelial Cells Few <5 /hpf Urine Bacteria None seen None Seen /hpf Urine Glucose Normal Normal mg/dL Microbiology Date/Time Source Procedure Growth Status 11/25/24 23:45 Nose MRSA Screen - Final Complete Assessment An 89-year-old male patient who presents with septic shock Afib with RVR Elevated troponin, likely demand ischemia Epistaxis, resolved EVA recommendations Follow blood cultures on pressors empirically continue broad spectrum antibiotics on IV vancomycin and Cefepime IV amdiodarone on IV heparin Cards on board Prognosis gaurded thank you for consult Plan discussed with: ILIANA Bennett MD Nov 26, 2024 20:26
[2024-11-27] VITALS (97 sets, daily range): BP systolic 85–158; BP diastolic 42–91; PULSE 84–149; RESP 15–37; TEMP 97.5–99.2; O2SAT 92–100
[2024-11-27 01:42] LABS: INR 1.53 (0.9-1.15); Prothrombin Time 15.7 sec (9.3-11.8)
[2024-11-27 02:01] LABS: Partial Thromboplastin Time 92.3 SEC (24.5-34.5)
[2024-11-27] MEDS: HEPARIN DRIP/D5W 100UNITS/ML 250 ML IV SCH ×2 (03:07→18:00)
[2024-11-27 06:06] LABS: Basophils # (auto) 0 10 ^3/uL (0-0.2); Basophils % (auto) 0.2 % (0.0-2.0); Eosinophils # (auto) 0 10 ^3/uL (0-0.8); Hematocrit 36.8 % (41.0-53.0); Hemoglobin 12.2 g/dL (13.5-17.5); Lymphocytes # (auto) 1.1 10 ^3/uL (0.4-5.4); Lymphocytes % (auto) 6.7 % (10.0-50.0); Mean Corpuscular Hemoglobin 31.9 pg (28.0-32.0); Mean Corpuscular Hgb Conc. 33.2 g/dL (32.0-36.0); Monocytes # (auto) 1.8 10 ^3/uL (0-1.3); Monocytes % (auto) 11.5 % (0.0-12.0); Neutrophils # (auto) 12.9 10 ^3/uL (1.6-8.6); Neutrophils % (auto) 81.6 % (37.0-80.0); Nucleated Red Blood Cells % 0.1 %; Platelet Count (auto) 86 10^3/uL (140-450); Red Blood Cells 3.84 10^6/uL (4.5-5.90); White Blood Cell 15.8 10^3/uL (4.4-10.8)
[2024-11-27 06:10] LABS: Potassium 3.8 mmol/L (3.5-5.1); Sodium 142 mmol/L (136-145)
[2024-11-27 06:11] LABS: Anion Gap 10 (5-15)
[2024-11-27 06:16] LABS: Triglycerides 104 mg/dL (< 150)
[2024-11-27 06:17] LABS: BUN/Creatinine Ratio 24.5 (10.0-20.0); LDL Cholesterol 45 mg/dL (< 100); Magnesium 2.2 mg/dL (1.6-2.6)
[2024-11-27 06:18] LABS: Cholesterol 88 mg/dL (< 200)
[2024-11-27 06:19] LABS: Blood Urea Nitrogen 47 mg/dL (9-23); Calcium 8.5 mg/dL (8.7-10.4); Carbon Dioxide 18 mmol/L (20-31); Chloride 114 mmol/L (98-107); Glucose 110 mg/dL (74-106); HDL Cholesterol 23 mg/dL (40-59); Phosphorus 2.7 mg/dL (2.4-5.1)
[2024-11-27] MEDS: PANTOPRAZOLE 40 MG/10 ML VIAL INJ IV SCH (09:24)
[2024-11-27] MEDS: DIGOXIN (250MCG/ML) 2 ML AMPULE IV ONE ×2 (09:39→09:58)
[2024-11-27] MEDS: AMIODARONE BOLUS KIT 100 ML IV ONE (10:09)
[2024-11-27] MEDS: AMIODARONE 450mg/250ml AE 250 ML IV SCH ×2 (10:33→15:15)
--- NOTE | 2024-11-27 11:15 | DVHINCON2 ---
Date of service: Nov 27, [address] Capps Reason for Consultation Acute kidney injury History of Present Illness Patient is 89-year-old [place]ian male with past medical history significant for chronic systolic Congestive heart failure, AFIB, and HTN is admitted for nosebleed. On admission patient found to have elevated BUN creatinine nephrology is consulted for acute kidney injury Past Medical History PAST MEDICAL HISTORY: AFIB, HTN, chronic systolic Congestive heart failure Past Surgical History Patient denies Allergies: Coded Allergies: NO KNOWN ALLERGIES (Unverified , 11/20/20) Home Meds Reported Medications Lisinopril (Lisinopril) 10 Mg Tab, 1 TAB PO DAILY for 100 Days, #100 11/23/24 Latanoprost (LATANOPROST) 0.005 % Mitzi, 1 DROP EACHEYE QPM for 60 Days, #7.5 11/23/24 Bicalutamide (Bicalutamide) 50 Mg Tab, 50 MG PO, TAB 11/25/20 Gabapentin (Gabapentin) 300 Mg Cap, 300 MG PO for 30 Days, MG 11/25/20 Simvastatin (Simvastatin) 40 Mg Tab, 40 MG PO DAILY for 30 Days 11/25/20 Current Medications Current Medications Medications (Trade) Dose Ordered Sig/Monica Route PRN Reason Start Time Stop Time Status Last Admin Piperacillin Sod/ Tazobactam Sod 100 ml @ 25 mls/hr Q8H IV 11/26/24 17:00 11/26/24 16:14 DC Ipratropium [place] (Atrovent Medneb) 0.5 mg Q6HR NEB 11/26/24 12:00 11/27/24 07:54 Levalbuterol HCl (Xopenex Medneb) 1.25 mg Q6HR NEB 11/26/24 12:00 11/27/24 07:54 Pantoprazole Sodium (Protonix) 40 mg DAILY IV 11/27/24 10:00 11/27/24 09:24 Vancomycin HCl 0 ml @ 0 mls/hr UD IV 11/26/24 15:15 11/26/24 16:13 DC Cefepime HCl 50 ml @ 12.5 mls/hr DAILY IV 11/26/24 17:00 11/27/24 09:24 Sodium Chloride 1,000 ml @ 125 mls/hr Q8H IV 11/26/24 16:15 11/26/24 18:08 DC 11/26/24 16:37 Phenylephrine HCl 250 ml @ 30 mls/hr Q8H20M IV 11/26/24 18:00 11/27/24 02:39 Sodium Chloride 1,000 ml @ 70 mls/hr [id number] IV 11/26/24 18:15 11/27/24 11:13 DC 11/27/24 06:32 Heparin Sodium/ Dextrose 250 ml @ 9 mls/hr Q24H IV 11/27/24 02:30 11/27/24 03:07 Amiodarone HCl 250 ml @ 33.333 mls/ hr Q7H30M IV 11/27/24 09:15 11/27/24 15:14 11/27/24 10:33 Amiodarone HCl 250 ml @ 16.667 mls/ hr Q15H IV 11/27/24 15:15 Sodium Bicarbonate 50 ml/ Sodium Chloride 1,050 ml @ 70 mls/hr Q15H IV 11/27/24 11:15 Family History: Patient reports no known family medical history. Review of Systems All 12 item review of systems reviewed with the patient nonsignificant except what is mentioned in the history of present illness H&P Exam Vital Signs/I&O Vital Sign Date Time Temp Pulse Resp B/P (MAP) Pulse Ox O2 Delivery O2 Flow Rate FiO2 11/27/24 09:58 130 11/27/24 08:45 25 105/54 (71) 100 11/27/24 08:00 97.5 97.5 11/27/24 07:54 Nasal Cannula* 2 28 Intake and Output 11/26/24 11/27/24 19:00 07:00 Intake Total 1126.5 ml 1211 ml Output Total 900 ml 750 ml Balance 226.5 ml 461 ml Intake Oral 600 ml IV Total 526.5 ml 1211 ml Output Urine Total 900 ml 750 ml # Voids 4 3 # Bowel Movements 1 Physical Exam Obese male awake alert niece at the bedside helped translate Lungs clear to auscultation Cardiac exam tachycardia GI soft nontender was normal Extremities no clubbing cyanosis or edema Neuro nonfocal Labs/Diagnostic Data Labs/Diagnostic Data Laboratory Tests Test 11/27/24 10:10 11/27/24 04:59 11/27/24 00:30 11/26/24 18:26 Range/Units White Blood Count 15.8 #H 4.4-10.8 10^3/uL Red Blood Count 3.84 L 4.5-5.90 10^6/uL Hemoglobin 12.2 L 13.5-17.5 g/dL Hematocrit 36.8 L 41.0-53.0 % Mean Corpuscular Volume 96.0 80.0-100.0 fL Mean Corpuscular Hemoglobin 31.9 28.0-32.0 pg Mean Corpuscular Hemoglobin Concent 33.2 32.0-36.0 g/dL Red Cell Distribution Width 17.0 H 11.8-14.3 % Platelet Count 86 L 140-450 10^3/uL Mean Platelet Volume 12.2 H 6.9-10.8 fL Neutrophils (%) (Auto) 81.6 H 37.0-80.0 % Lymphocytes (%) (Auto) 6.7 L 10.0-50.0 % Monocytes (%) (Auto) 11.5 0.0-12.0 % Eosinophils (%) (Auto) 0.0 0.0-7.0 % Basophils (%) (Auto) 0.2 0.0-2.0 % Neutrophils # (Auto) 12.9 H 1.6-8.6 10 ^3/uL Lymphocytes # (Auto) 1.1 0.4-5.4 10 ^3/uL Monocytes # (Auto) 1.8 H 0-1.3 10 ^3/uL Eosinophils # (Auto) 0 0-0.8 10 ^3/uL Basophils # (Auto) 0 0-0.2 10 ^3/uL Nucleated Red Blood Cells 0.1 % Sodium Level 142 136-145 mmol/L Potassium Level 3.8 3.5-5.1 mmol/L Chloride Level 114 H 98-107 mmol/L Carbon Dioxide Level 18 L 20-31 mmol/L Anion Gap 10 5-15 Blood Urea Nitrogen 47 H 9-23 mg/dL Creatinine 1.92 H 0.700-1.30 mg/dL Glomerular Filtration Rate Calc 33 >90 mL/min BUN/Creatinine Ratio 24.5 H 10.0-20.0 Serum Glucose 110 H 74-106 mg/dL Calcium Level 8.5 L 8.7-10.4 mg/dL Phosphorus Level 2.7 2.4-5.1 mg/dL Magnesium Level 2.2 1.6-2.6 mg/dL Triglycerides Level 104 < 150 mg/dL Cholesterol Level 88 < 200 mg/dL LDL Cholesterol 45 < 100 mg/dL HDL Cholesterol 23 L 40-59 mg/dL Thyroid Stimulating Hormone (TSH) 4.23 0.55-4.78 uIU/mL Prothrombin Time 15.7 H 16.1 H 9.3-11.8 sec Prothrombin Time INR 1.53 H 1.57 H 0.9-1.15 Activated Partial Thromboplast Time 92.3 *H 57.2 H 24.5-34.5 SEC Test 11/26/24 15:03 11/26/24 11:40 11/26/24 11:20 11/26/24 09:53 Range/Units White Blood Count 26.5 H 29.5 H 4.4-10.8 10^3/uL Red Blood Count 4.19 L 3.97 L 4.5-5.90 10^6/uL Hemoglobin 13.2 L 12.5 L 13.5-17.5 g/dL Hematocrit 39.5 L 37.4 L 41.0-53.0 % Mean Corpuscular Volume 94.1 94.1 80.0-100.0 fL Mean Corpuscular Hemoglobin 31.5 31.3 28.0-32.0 pg Mean Corpuscular Hemoglobin Concent 33.5 33.3 32.0-36.0 g/dL Red Cell Distribution Width 16.3 H 16.5 H 11.8-14.3 % Platelet Count 89 L 81 L 140-450 10^3/uL Mean Platelet Volume 11.2 H 10.5 6.9-10.8 fL Neutrophils (%) (Auto) 84.2 H 37.0-80.0 % Lymphocytes (%) (Auto) 4.7 L 10.0-50.0 % Monocytes (%) (Auto) 10.8 0.0-12.0 % Basophils (%) (Auto) 0.3 0.0-2.0 % Neutrophils # (Auto) 24.8 H 1.6-8.6 10 ^3/uL Lymphocytes # (Auto) 1.4 0.4-5.4 10 ^3/uL Monocytes # (Auto) 3.2 H 0-1.3 10 ^3/uL Differential Total Cells Counted 100.0 100 Neutrophils % (Manual) 75 37.0-80.0 Band Neutrophils % (Manual) 9 Lymphocytes % (Manual) 9 L 10.0-50.0 Monocytes % (Manual) 7 0-12 Eosinophils % (Manual) 0 0-7 Basophils % (Manual) 0 0.0-2.0 Metamyelocytes % (manual) 0 Myelocytes % (Manual) 0 Promyelocytes % (Manual) 0 Blast Cells % (Manual) 0 Reactive Lymphocytes 0 Platelet Estimate Decrea Large Platelets Few Anisocytosis (manual) Slight Microcytosis Slight Macrocytosis Slight Sodium Level 139 142 136-145 mmol/L Potassium Level 4.5 4.6 3.5-5.1 mmol/L Chloride Level 112 H 111 H 98-107 mmol/L Carbon Dioxide Level 16 L 21 20-31 mmol/L Anion Gap 11 10 5-15 Blood Urea Nitrogen 42 #H 56 #H 9-23 mg/dL Creatinine 2.23 H 2.36 H 0.700-1.30 mg/dL Glomerular Filtration Rate Calc 28 26 >90 mL/min BUN/Creatinine Ratio 18.8 23.7 H 10.0-20.0 Serum Glucose 164 H 94 74-106 mg/dL Lactic Acid Level 2.0 0.4-2.0 mmol/L Calcium Level 9.1 9.4 8.7-10.4 mg/dL Aspartate Amino Transferase (AST) 530 H 13-40 U/L Alanine Aminotransferase (ALT) 384 H 7-40 U/L B-Type Natriuretic Peptide 1009.66 0-100 pg/mL Influenza Type A Antigen Negative Negative Influenza Type B Antigen Negative Negative SARS-CoV-2 Antigen (Rapid) Negative NEGATIVE Eosinophils (%) (Auto) 0.0 0.0-7.0 % Eosinophils # (Auto) 0 0-0.8 10 ^3/uL Basophils # (Auto) 0.1 0-0.2 10 ^3/uL Nucleated Red Blood Cells 0.0 % Prothrombin Time 15.6 H 9.3-11.8 sec Prothrombin Time INR 1.52 H 0.9-1.15 Activated Partial Thromboplast Time 27.9 24.5-34.5 SEC Test 11/25/24 12:27 11/25/24 05:30 11/24/24 06:15 11/23/24 09:46 Range/Units POC Glucose 107 H 70-106 mg/dl White Blood Count 9.7 9.9 # 7.8 4.4-10.8 10^3/uL Red Blood Count 4.25 L 4.57 4.41 L 4.5-5.90 10^6/uL Hemoglobin 13.6 14.5 14.1 13.5-17.5 g/dL Hematocrit 39.8 L 42.7 41.4 41.0-53.0 % Mean Corpuscular Volume 93.6 93.4 93.7 80.0-100.0 fL Mean Corpuscular Hemoglobin 32.0 31.6 31.9 28.0-32.0 pg Mean Corpuscular Hemoglobin Concent 34.1 33.9 34.1 32.0-36.0 g/dL Red Cell Distribution Width 16.3 H 15.9 H 15.6 H 11.8-14.3 % Platelet Count 89 L 107 L 94 L 140-450 10^3/uL Mean Platelet Volume 11.2 H 11.9 H 10.4 6.9-10.8 fL Neutrophils (%) (Auto) 56.7 65.1 37.0-80.0 % Lymphocytes (%) (Auto) 20.9 18.2 10.0-50.0 % Monocytes (%) (Auto) 22.2 H 16.6 H 0.0-12.0 % Eosinophils (%) (Auto) 0.1 0.0 0.0-7.0 % Basophils (%) (Auto) 0.1 0.1 0.0-2.0 % Neutrophils # (Auto) 5.5 5.1 1.6-8.6 10 ^3/uL Lymphocytes # (Auto) 2.0 1.4 0.4-5.4 10 ^3/uL Monocytes # (Auto) 2.1 H 1.3 0-1.3 10 ^3/uL Eosinophils # (Auto) 0 0 0-0.8 10 ^3/uL Basophils # (Auto) 0 0 0-0.2 10 ^3/uL Nucleated Red Blood Cells 0.1 0.0 % Sodium Level 142 144 142 136-145 mmol/L Potassium Level 4.4 4.4 4.6 3.5-5.1 mmol/L Chloride Level 110 H 111 H 110 H 98-107 mmol/L Carbon Dioxide Level 21 21 24 20-31 mmol/L Anion Gap 11 12 8 5-15 Blood Urea Nitrogen 42 #H 31 H 28 H 9-23 mg/dL Creatinine 1.83 H 1.59 H 1.45 H 0.700-1.30 mg/dL Glomerular Filtration Rate Calc 35 42 46 >90 mL/min BUN/Creatinine Ratio 23.0 H 19.5 19.3 10.0-20.0 Serum Glucose 110 H 116 H 143 H 74-106 mg/dL Calcium Level 10.0 10.0 9.5 8.7-10.4 mg/dL Differential Total Cells Counted 100.0 100 Neutrophils % (Manual) 58 37.0-80.0 Band Neutrophils % (Manual) 0 Lymphocytes % (Manual) 27 10.0-50.0 Monocytes % (Manual) 15 H 0-12 Eosinophils % (Manual) 0 0-7 Basophils % (Manual) 0 0.0-2.0 Metamyelocytes % (manual) 0 Myelocytes % (Manual) 0 Promyelocytes % (Manual) 0 Blast Cells % (Manual) 0 Reactive Lymphocytes 0 Platelet Estimate Decrea Large Platelets Few Troponin I High Sensitivity 45 </=54 ng/L Test 11/22/24 19:30 11/22/24 16:03 11/22/24 11:30 Range/Units Urine Color Yellow Yellow Urine Clarity Clear Clear Urine pH 5.0 5.0-9.0 Urine Specific [place] 1.018 1.001-1.035 Urine Protein Trace H Negative Urine Ketones Trace Negative Urine Blood 1+ H Negative /uL Urine Nitrite Negative Negative Urine Bilirubin Negative Negative Urine Urobilinogen Normal Negative mg/dL Urine Leukocyte Esterase Negative Negative /uL Urine RBC 2 0 - 3 /hpf Urine WBC 1 0 - 3 /hpf Urine Squamous Epithelial Cells Few <5 /hpf Urine Bacteria None seen None Seen /hpf Urine Glucose Normal Normal mg/dL Troponin I High Sensitivity 58 *H 61 *H </=54 ng/L White Blood Count 6.9 4.4-10.8 10^3/uL Red Blood Count 4.73 4.5-5.90 10^6/uL Hemoglobin 14.8 13.5-17.5 g/dL Hematocrit 44.1 41.0-53.0 % Mean Corpuscular Volume 93.1 80.0-100.0 fL Mean Corpuscular Hemoglobin 31.4 28.0-32.0 pg Mean Corpuscular Hemoglobin Concent 33.7 32.0-36.0 g/dL Red Cell Distribution Width 16.1 H 11.8-14.3 % Platelet Count 93 L 140-450 10^3/uL Mean Platelet Volume 10.3 6.9-10.8 fL Neutrophils (%) (Auto) 56.9 37.0-80.0 % Lymphocytes (%) (Auto) 24.8 10.0-50.0 % Monocytes (%) (Auto) 17.9 H 0.0-12.0 % Eosinophils (%) (Auto) 0.1 0.0-7.0 % Basophils (%) (Auto) 0.3 0.0-2.0 % Neutrophils # (Auto) 3.9 1.6-8.6 10 ^3/uL Lymphocytes # (Auto) 1.7 0.4-5.4 10 ^3/uL Monocytes # (Auto) 1.2 0-1.3 10 ^3/uL Eosinophils # (Auto) 0 0-0.8 10 ^3/uL Basophils # (Auto) 0 0-0.2 10 ^3/uL Nucleated Red Blood Cells 0.2 % Prothrombin Time 12.4 H 9.3-11.8 sec Prothrombin Time INR 1.18 H 0.9-1.15 Activated Partial Thromboplast Time 29.2 24.5-34.5 SEC Sodium Level 141 136-145 mmol/L Potassium Level 4.2 3.5-5.1 mmol/L Chloride Level 109 H 98-107 mmol/L Carbon Dioxide Level 23 20-31 mmol/L Anion Gap 9 5-15 Blood Urea Nitrogen 29 H 9-23 mg/dL Creatinine 1.49 H 0.700-1.30 mg/dL Glomerular Filtration Rate Calc 45 >90 mL/min BUN/Creatinine Ratio 19.5 10.0-20.0 Serum Glucose 104 74-106 mg/dL Calcium Level 9.9 8.7-10.4 mg/dL Microbiology Date/Time Source Procedure Growth Status 11/25/24 23:45 Nose MRSA Screen - Final Complete Assessment Acute kidney injury superimposed Chronic Kidney Disease secondary hemodynamic mediated Congestive heart failure, ejection fraction 35% AFib with RVR Epistaxis Gram-positive cocci bacteremia Metabolic acidosis Transaminitis Hypertension Anemia due to blood loss Recommendations Closely monitor fluid and electrolytes Avoid nephrotoxic medications Zhou catheter Strict I&Os IVF half NS with sodium bicarbonate 50 mEq at 70 cc/hour Check kidney ultrasound Check urine electrolytes and protein excretion IV antibiotics Cardiology consult Blood pressure control We will continue to follow Patient seen and examined by myself. I discussed my plan of care with the patient, his niece and the primary nurse at the bedside I would like to thank for the consult, will follow up Plan discussed with: Patient JOSÉ ANTONIO HODGE MD Nov 27, 2024 11:15
[2024-11-27 11:37] LABS: INR 1.33 (0.9-1.15); Partial Thromboplastin Time 51.8 SEC (24.5-34.5); Prothrombin Time 13.8 sec (9.3-11.8)
[2024-11-27 12:07] LABS: Magnesium 2.3 mg/dL (1.6-2.6)
[2024-11-27 12:08] LABS: Phosphorus 2.8 mg/dL (2.4-5.1)
[2024-11-27] MEDS: SODIUM BICARB 50mEq/50ml Vial 50 ML in SOD CHL 0.45% 1,000 ML IV SCH (12:19)
--- NOTE | 2024-11-27 12:50 | DVH ---
INDICATION: jamel TECHNIQUE: Multiple real-time sonographic images of the kidneys and bladder were obtained. COMPARISON: None FINDINGS: The right kidney measures 12 cm in length, which is normal in size. There is increased echogenicity o f the right kidney with cortical renal atrophy. No hydronephrosis. The left kidney measures 11 cm in length, which is normal in size. There is increased echogenicity of the left kidney with cortical renal atrophy. No hydronephrosis. There is a left renal cyst measuring 2.4 cm. The urinary bladder is contracted which limits evaluation. IMPRESSION: Echogenic bilateral kidneys with cortical renal atrophy suggestive of chronic medical renal disease. No hydronephrosis.
--- NOTE | 2024-11-27 12:56 | DVH ---
Chest x-ray Technique: AP portable Comparison: 11/25/2024 CLINICAL INDICATION: Shortness of breath FINDINGS: Heart size is enlarged. No change in positioning of the central line. No infiltrates or ef fusions IMPRESSION: 1. No acute cardiopulmonary pathology
[2024-11-27 13:45] LABS: Urine Bacteria None Seen /hpf (None Seen)
[2024-11-27 14:16] LABS: Urine Blood 2+ /uL (Negative); Urine Budding Yeast OCCASIONAL /hpf (None Seen); Urine Clarity Turbid (Clear); Urine Color Yellow (Yellow); Urine Protein, UAD TRACE (Negative); Urine Specific Gravity 1.018 (1.001-1.035); Urine Squamous Epithelial Cell FEW /hpf (<5); Urine Urobilinogen Normal (Negative); Urine WBC 10 /hpf (0 - 3)
[2024-11-27 14:20] LABS: Protein, Urine 42.9 mg/dL (1-14)
[2024-11-27 14:23] LABS: Creatinine, Urine 83.21 mg/dL (30.0-125.0); Urine Protein/Creatinine Ratio 0.52
--- NOTE | 2024-11-27 16:21 | DVHPN2 ---
Subjective OVERNIGHT EVENTS NOTED. Patient went into AFib with RVR currently on amiodarone drip, also on heparin drip risks benefits and alternatives of heparin drip including life-threatening bleeding disability explained to the patient and patient's son at bedside they understand verbalized understanding and agreeable to plan. Reviewed: Care Plan Changes from previous H/P or p: No Changes Eyes: No Pain, No Vision change, No Conjunctivae inflammation, No Eyelid inflammation, No Other, No Redness ENT: No Ear pain, No Ear discharge, No Nose pain; Nose discharge; No Nose congestion, No Mouth pain, No Mouth swelling, No Throat pain, No Throat swelling, No Other Cardiovascular: No Chest Pain, No Palpitations, No Orthopnea, No Paroxysmal Noc. Dyspnea, No Edema, No Lt Headedness, No Other Respiratory: No Cough, No Dry; Shortness of breath; No SOB with excertion, No Wheezing, No Hemoptysis, No Pleuritic Pain, No Sputum, No Other Gastrointestinal: No Nausea, No Vomiting, No Abdominal Pain, No Diarrhea, No Constipation, No Melena, No Hematochezia, No Other Genitourinary: No Dysuria, No Frequency, No Incontinence, No Hematuria, No Retention, No Other Musculoskeletal: No other, No neck pain, No shoulder pain, No arm pain, No back pain, No hand pain, No leg pain, No foot pain Skin: No Rash, No Lesions, No Jaundice, No Bruising, No Other Objective Vitals Vital Signs Date Time Temp Pulse Resp B/P (MAP) Pulse Ox O2 Delivery O2 Flow Rate FiO2 11/27/24 16:00 111 22 97 11/27/24 12:58 Nasal Cannula 2.0 11/27/24 12:58 28 11/27/24 12:00 97.8 97.8 Intake/Output Intake and Output 11/27/24 07:00 Intake Total 2346.5 ml Output Total 1650 ml Balance 696.5 ml Intake Oral 600 ml IV Total 1746.5 ml Output Urine Total 1650 ml # Voids 7 # Bowel Movements 1 Exam HEENT PUPILS ARE REACTIVE NECK IS SUPPLE CV IS S1-S2 irregularly irregular rate and rhythm RESPIRATORY DIMINISHED BREATH SOUNDS BASES GI POSITIVE BOWEL SOUND EXTREMITY NO [employer] more awake alert oriented today. Medications Current Medications Medications Dose Ordered Sig/Monica Route Start Time Stop Time Status Last Admin Dose Admin Docusate Sodium 100 mg BIDPRN PRN PO 11/22/24 21:00 Acetaminophen 650 mg Q6HP PRN PO 11/22/24 21:00 Acetaminophen/ Hydrocodone Bitart 1 tab Q4HP PRN PO 11/22/24 21:00 Ondansetron HCl 4 mg Q4HP PRN IV 11/22/24 21:00 Nitroglycerin 0.4 mg Q5MINP PRN SL 11/22/24 21:00 Morphine Sulfate 2 mg Q30M PRN IV 11/22/24 21:00 Norepinephrine Bitartrate 250 ml @ 3.75 mls/hr Q24H IV 11/25/24 19:30 11/26/24 17:52 7.5 MLS/HR Metoprolol Tartrate 25 mg BID PO 11/25/24 20:00 Hold Ipratropium [place] 0.5 mg Q6HR NEB 11/26/24 12:00 11/27/24 12:58 0.5 MG Levalbuterol HCl 1.25 mg Q6HR NEB 11/26/24 12:00 11/27/24 12:58 1.25 MG Pantoprazole Sodium 40 mg DAILY IV 11/27/24 10:00 11/27/24 09:24 40 MG Phenylephrine HCl 250 ml @ 30 mls/hr Q8H20M IV 11/26/24 18:00 11/27/24 02:39 30 MLS/HR Heparin Sodium/ Dextrose 250 ml @ 9 mls/hr Q24H IV 11/27/24 02:30 11/27/24 12:17 9 MLS/HR Amiodarone HCl 250 ml @ 16.667 mls/ hr Q15H IV 11/27/24 15:15 Sodium Bicarbonate 50 ml/ Sodium Chloride 1,050 ml @ 70 mls/hr Q15H IV 11/27/24 11:15 11/27/24 12:19 70 MLS/HR Piperacillin Sod/ Tazobactam Sod 100 ml @ 25 mls/hr Q8HR IV 11/27/24 22:00 Laboratory Results Laboratory Tests 11/27/24 04:59 Chemistry Test 11/27/24 04:59 Calcium Level 8.5 mg/dL (8.7-10.4) L Magnesium Level 2.3 mg/dL (1.6-2.6) Phosphorus Level 2.8 mg/dL (2.4-5.1) Coagulation Test 11/26/24 18:26 11/27/24 00:30 11/27/24 10:10 Prothrombin Time 16.1 sec (9.3-11.8) H 15.7 sec (9.3-11.8) H 13.8 sec (9.3-11.8) H Prothrombin Time INR 1.57 (0.9-1.15) H 1.53 (0.9-1.15) H 1.33 (0.9-1.15) H Activated Partial Thromboplast Time 57.2 SEC (24.5-34.5) H 92.3 SEC (24.5-34.5) *H 51.8 SEC (24.5-34.5) H Lipid panel Test 11/27/24 04:59 Cholesterol Level 88 mg/dL (< 200) HDL Cholesterol 23 mg/dL (40-59) L Triglycerides Level 104 mg/dL (< 150) HgA1c, TSH Test 11/27/24 04:59 Thyroid Stimulating Hormone (TSH) 4.23 uIU/mL (0.55-4.78) Urinalysis Test 11/27/24 13:30 Urine Color Yellow (Yellow) Urine Clarity Turbid (Clear) H Urine pH 5.0 (5.0-9.0) Urine Specific [place] 1.018 (1.001-1.035) Urine Protein Trace (Negative) H Urine Ketones Negative (Negative) Urine Blood 2+ /uL (Negative) H Urine Nitrite Negative (Negative) Urine Bilirubin Negative (Negative) Urine Urobilinogen Normal mg/dL (Negative) Urine Leukocyte Esterase Negative /uL (Negative) Urine RBC 22 /hpf (0 - 3) Urine WBC 10 /hpf (0 - 3) Urine Squamous Epithelial Cells Few /hpf (<5) Urine Bacteria None seen /hpf (None Seen) Urine Granular Casts Few /lpf (0) Urine Yeast (Budding) Occasional /hpf (None Urine Creatinine 83.21 mg/dL (30.0-125.0) Urine Protein/Creatinine Ratio 0.52 Urine Sodium 51 mmol/L (40-220) Urine Glucose Normal mg/dL (Normal) Urine Total Protein 42.9 mg/dL (1-14) H Microbiology Microbiology Date/Time Source Procedure Growth Status 11/26/24 15:12 Blood Blood Culture - Preliminary Resulted 11/26/24 13:30 Urine - Midstream Clean Catch Urine Culture - Preliminary Resulted 11/25/24 23:45 Nose MRSA Screen - Final Complete Assessment/Plan Assessment/Plan 89-YEAR-OLD MALE WITH A KNOWN HISTORY OF CHRONIC AFIB, INITIALLY PRESENTED TO THE HOSPITAL WITH EPISTAXIS STATUS POST NASAL BLEEDING. PATIENT WAS FOUND TO HAVE 1. ACUTE DELIRIUM WITH A POSSIBLE EARLY COGNITIVE DECLINE, currently more awake 2. AFib with RVR currently on amiodarone drip 3. ELEVATED TROPONIN SUSPECT DEMAND ISCHEMIA 4. NASAL BLEEDING STATUS POST NASAL PACKING, status post nasal packing removed 5. Agitation/behavior disorder 6. Leukocytosis rule out sepsis 7. Acute kidney injury -continue amiodarone drip, heparin drip follow up Cardiology recommendations -blood cultures x2, UA urine culture, IV antibiotics, infectious disease consultation. Plan discussed with: Patient, Son, Other (And niece.) Date of Service: Nov 27, 2024 Billing Provider: MARILEE BARAJAS MD Common Visit Codes: NOT BILLABLE MARILEE BARAJAS MD Nov 27, 2024 16:21
[2024-11-27 17:12] LABS: INR 1.3 (0.9-1.15); Partial Thromboplastin Time 48.9 SEC (24.5-34.5); Prothrombin Time 13.5 sec (9.3-11.8)
--- NOTE | 2024-11-27 17:18 | DVHPN2 ---
Progress Note - Dictate Date Seen: Nov 27, 2024 Medical Necessity Reason Pt with a Central, PICC or Fol: Yes Subjective blood cx +ve on pressors vital signs Vital Sign Date Time Temp Pulse Resp B/P (MAP) Pulse Ox O2 Delivery O2 Flow Rate FiO2 11/27/24 16:00 111 22 97 11/27/24 12:58 Nasal Cannula 2.0 11/27/24 12:58 28 11/27/24 12:00 97.8 97.8 Total Intake and Output 11/26/24 11/26/24 11/27/24 15:00 23:00 07:00 Intake Total 196.0 ml 1378.5 ml 772 ml Output Total 900 ml 750 ml Balance 196.0 ml 478.5 ml 22 ml medications Current Medications Medications Dose Ordered Sig/Monica Route Start Time Stop Time Status Last Admin Dose Admin Docusate Sodium 100 mg BIDPRN PRN PO 11/22/24 21:00 Acetaminophen 650 mg Q6HP PRN PO 11/22/24 21:00 Acetaminophen/ Hydrocodone Bitart 1 tab Q4HP PRN PO 11/22/24 21:00 Ondansetron HCl 4 mg Q4HP PRN IV 11/22/24 21:00 Nitroglycerin 0.4 mg Q5MINP PRN SL 11/22/24 21:00 Morphine Sulfate 2 mg Q30M PRN IV 11/22/24 21:00 Norepinephrine Bitartrate 250 ml @ 3.75 mls/hr Q24H IV 11/25/24 19:30 11/26/24 17:52 7.5 MLS/HR Metoprolol Tartrate 25 mg BID PO 11/25/24 20:00 Hold Ipratropium [place] 0.5 mg Q6HR NEB 11/26/24 12:00 11/27/24 12:58 0.5 MG Levalbuterol HCl 1.25 mg Q6HR NEB 11/26/24 12:00 11/27/24 12:58 1.25 MG Pantoprazole Sodium 40 mg DAILY IV 11/27/24 10:00 11/27/24 09:24 40 MG Phenylephrine HCl 250 ml @ 30 mls/hr Q8H20M IV 11/26/24 18:00 11/27/24 02:39 30 MLS/HR Heparin Sodium/ Dextrose 250 ml @ 9 mls/hr Q24H IV 11/27/24 02:30 11/27/24 12:17 9 MLS/HR Amiodarone HCl 250 ml @ 16.667 mls/ hr Q15H IV 11/27/24 15:15 Sodium Bicarbonate 50 ml/ Sodium Chloride 1,050 ml @ 70 mls/hr Q15H IV 11/27/24 11:15 11/27/24 12:19 70 MLS/HR Piperacillin Sod/ Tazobactam Sod 100 ml @ 25 mls/hr Q8HR IV 11/27/24 22:00 objective HEENT: Atraumatic Neck: No swelling Lungs: Equal air entry and clear to auscultation Cardiovascular: S1 S2 heard no murmur Abdomen: Soft nontender, no organomegaly, nondistended Neuro: sedated, unable to assess Psych: unable to assess laboratory and microbiology Laboratory Tests 11/27/24 04:59 Test 11/27/24 04:59 Range/Units Serum Glucose 110 H 74-106 mg/dL Assessment/Plan An 89-year-old male patient who presents with gram positive ashley in blood ( bacteremia) septic shock Afib with RVR Elevated troponin, likely demand ischemia Epistaxis, resolved EVA recommendations Follow blood cultures : ID and sensitivity on pressors dc Vancomycin switch IV Zosyn for GPB. dc cefepime need CT chest/ abdomen and pelvis repeat 2 sets of blood cx tomorrow IV amiodarone on IV heparin Cards on board crit time 35 minutes Prognosis gaurded discussed with Dr Capps Plan discussed with: ILIANA Bennett MD Nov 27, 2024 17:18
--- NOTE | 2024-11-27 23:42 | DVHPN2 ---
Progress Note - Dictate Date Seen: Nov 27, 2024 Medical Necessity Reason Pt with a Central, PICC or Fol: Yes The following are medically ne: Lubin Catheter Reason for lubin catheter: Strict I&O Subjective Patient seen and examined at bedside. Remains on supplemental oxygen Overnight events reviewed. vital signs Vital Sign Date Time Temp Pulse Resp B/P (MAP) Pulse Ox O2 Delivery O2 Flow Rate FiO2 11/27/24 19:30 104 24 98 11/27/24 18:39 Nasal Cannula* 2 28 11/27/24 17:00 99.2 99.2 Total Intake and Output 11/26/24 11/26/24 11/27/24 15:00 23:00 07:00 Intake Total 196.0 ml 1378.5 ml 772 ml Output Total 900 ml 750 ml Balance 196.0 ml 478.5 ml 22 ml medications Current Medications Medications Dose Ordered Sig/Monica Route Start Time Stop Time Status Last Admin Dose Admin Docusate Sodium 100 mg BIDPRN PRN PO 11/22/24 21:00 Acetaminophen 650 mg Q6HP PRN PO 11/22/24 21:00 Acetaminophen/ Hydrocodone Bitart 1 tab Q4HP PRN PO 11/22/24 21:00 Ondansetron HCl 4 mg Q4HP PRN IV 11/22/24 21:00 Nitroglycerin 0.4 mg Q5MINP PRN SL 11/22/24 21:00 Morphine Sulfate 2 mg Q30M PRN IV 11/22/24 21:00 Norepinephrine Bitartrate 250 ml @ 3.75 mls/hr Q24H IV 11/25/24 19:30 11/26/24 17:52 7.5 MLS/HR Metoprolol Tartrate 25 mg BID PO 11/25/24 20:00 Hold Ipratropium [place] 0.5 mg Q6HR NEB 11/26/24 12:00 11/27/24 18:39 0.5 MG Levalbuterol HCl 1.25 mg Q6HR NEB 11/26/24 12:00 11/27/24 18:39 1.25 MG Pantoprazole Sodium 40 mg DAILY IV 11/27/24 10:00 11/27/24 09:24 40 MG Phenylephrine HCl 250 ml @ 30 mls/hr Q8H20M IV 11/26/24 18:00 11/27/24 02:39 30 MLS/HR Amiodarone HCl 250 ml @ 16.667 mls/ hr Q15H IV 11/27/24 15:15 11/27/24 15:15 16.667 MLS/HR Sodium Bicarbonate 50 ml/ Sodium Chloride 1,050 ml @ 70 mls/hr Q15H IV 11/27/24 11:15 11/27/24 12:19 70 MLS/HR Piperacillin Sod/ Tazobactam Sod 100 ml @ 25 mls/hr Q8HR IV 11/27/24 22:00 Heparin Sodium/ Dextrose 250 ml @ 11 mls/hr [id number] IV 11/27/24 18:00 objective Gen.: Patient lying in bed in no apparent distress. On supplemental oxygen. Head: Normocephalic, atraumatic. Eyes: EOMI/PERRLA. Ears: Normal hearing. Normal anatomy. Neck/trachea: Trachea midline, supple. Nose: Normal external anatomy. Mouth: Moist mucous membranes. Chest: Decreased air entry bilaterally. No wheezing or rhonchi. Cardiovascular: Positive S1, positive S2. Regular rate and rhythm. Abdomen: Positive bowel sounds in all 4 quadrants. Soft, non-tender, non- distended. : Deferred. Rectal: Deferred. Skin: Warm, dry. Intact. Extremities: 2+ radial pulses bilaterally. No lower extremity edema. Neuro: Awake, alert, oriented x3. No gross motor or sensory deficits. Cranial nerves II through XII intact. Gait not assessed. laboratory and microbiology Laboratory Tests 11/27/24 04:59 Test 11/27/24 04:59 Range/Units Serum Glucose 110 H 74-106 mg/dL Assessment/Plan Impression: Acute hypoxic respiratory failure Pneumonia likely gram negative Septic shock Atrial fibrillation with RVR Elevated Troponin Obesity BMI 33 CHF exacerbation Acute kidney injury Leukocytosis Pleural effusion Atelectasis Events: Remains on supplemental oxygen, 2 LPM NC Taper O2 as tolerated Heparin drip Amiodarone drip. Off Levophed and [place]-Synephrine, hemodynamically stable. Blood pressure stable. AFIB w/ RVR - Digoxin x2 given this AM. Amiodarone drip this AM. Cardiology recs appreciated. Continue bronchodilators Continue antibiotics Incentive spirometry Labs and imaging reviewed. Rest of plan as noted below. Plan: Supplemental oxygen Keep o2 sat above 92% Influenza and COVID swabs were negative. Antibiotics F/u cultures Pressors if necessary for hemodynamic support Titrate to keep MAP above 65 mmHg. Central line placement for administration of vasoactive medications and blood draws. Monitor renal function due to EVA Maintain euvolemia. Monitor electrolytes. Supplement as necessary Monitor ins/outs DVT prophylaxis GI prophylaxis-Protonix Condition: Critical Prognosis: Poor given multiple comorbidities. Rest of plan per hospitalist and other consultants. A total of 35 minutes of critical care time was spent reviewing the patient record, examining the patient, making a diagnostic and therapeutic plan, discussing this plan with the medical personnel, following up on diagnostic studies and following the patient for clinical stability excluding any and all procedures. At least 50% of this time was spent in direct, [id number] contact. Thank you Dr. Capps for allowing me to participate in this patient's care. Further recommendations will depend on patient's clinical course. Please do not hesitate to contact me if you have any questions or concerns. This medical document was created using an electronic medical record system with [employer] dictation system. Although this document has been carefully reviewed, there may still be some phonetic and typographical errors. These areas are purely typographical due to imperfections of the software programs, and do not reflect any compromise in the patient's medical care. Plan discussed with: Patient, Other (SYBIL Kuhn) Critical Care Time(min): 35 ASA GUILLAUME MD Nov 27, 2024 23:42
[2024-11-28] VITALS (65 sets, daily range): BP systolic 85–156; BP diastolic 43–88; PULSE 74–129; RESP 12–33; TEMP 97.4–98.2; O2SAT 87–100
[2024-11-28 01:13] LABS: INR 1.25 (0.9-1.15); Partial Thromboplastin Time 52.2 SEC (24.5-34.5)
[2024-11-28] MEDS: PIPERACILLIN-TAZOB 3.375GM 100 ML IV SCH ×2 (01:45→11:26)
--- NOTE | 2024-11-28 08:09 | DVHPN2 ---
Progress Note - Dictate Date Seen: Nov 28, 2024 Medical Necessity Reason Pt with a Central, PICC or Fol: Yes The following are medically ne: Lubin Catheter Reason for lubin catheter: Strict I&O Subjective Patient has a Lubin catheter. Heart rate is controlled. Getting out of bed ambulating with a walker with physical therapy. On pressors vital signs Vital Sign Date Time Temp Pulse Resp B/P (MAP) Pulse Ox O2 Delivery O2 Flow Rate FiO2 11/28/24 07:37 92 24 100 11/28/24 07:31 Nasal Cannula 2.0 11/28/24 07:31 28 11/28/24 07:15 124/71 (88) 11/28/24 00:00 97.5 97.5 Total Intake and Output 11/27/24 11/27/24 11/28/24 15:00 23:00 07:00 Intake Total 571.832 ml 1128.836 ml 783.669 ml Output Total 600 ml 750 ml Balance 571.832 ml 528.836 ml 33.669 ml medications Current Medications Medications Dose Ordered Sig/Monica Route Start Time Stop Time Status Last Admin Dose Admin Docusate Sodium 100 mg BIDPRN PRN PO 11/22/24 21:00 Acetaminophen 650 mg Q6HP PRN PO 11/22/24 21:00 Acetaminophen/ Hydrocodone Bitart 1 tab Q4HP PRN PO 11/22/24 21:00 Ondansetron HCl 4 mg Q4HP PRN IV 11/22/24 21:00 Nitroglycerin 0.4 mg Q5MINP PRN SL 11/22/24 21:00 Morphine Sulfate 2 mg Q30M PRN IV 11/22/24 21:00 Norepinephrine Bitartrate 250 ml @ 3.75 mls/hr Q24H IV 11/25/24 19:30 11/26/24 17:52 7.5 MLS/HR Metoprolol Tartrate 25 mg BID PO 11/25/24 20:00 Hold Ipratropium [place] 0.5 mg Q6HR NEB 11/26/24 12:00 11/28/24 07:31 0.5 MG Levalbuterol HCl 1.25 mg Q6HR NEB 11/26/24 12:00 11/28/24 07:31 1.25 MG Pantoprazole Sodium 40 mg DAILY IV 11/27/24 10:00 11/27/24 09:24 40 MG Phenylephrine HCl 250 ml @ 30 mls/hr Q8H20M IV 11/26/24 18:00 11/27/24 02:39 30 MLS/HR Amiodarone HCl 250 ml @ 16.667 mls/ hr Q15H IV 11/27/24 15:15 11/27/24 15:15 16.667 MLS/HR Sodium Bicarbonate 50 ml/ Sodium Chloride 1,050 ml @ 70 mls/hr Q15H IV 11/27/24 11:15 11/28/24 02:59 70 MLS/HR Heparin Sodium/ Dextrose 250 ml @ 11 mls/hr [id number] IV 11/27/24 18:00 Piperacillin Sod/ Tazobactam Sod 100 ml @ 25 mls/hr Q8H IV 11/28/24 10:00 objective HEENT: Atraumatic Neck: No swelling Lungs: Equal air entry and clear to auscultation Cardiovascular: S1 S2 heard no murmur Abdomen: Soft nontender, no organomegaly, nondistended Neuro: sedated, unable to assess Psych: unable to assess laboratory and microbiology Laboratory Tests 11/27/24 04:59 Test 11/27/24 04:59 Range/Units Serum Glucose 110 H 74-106 mg/dL Assessment/Plan An 89-year-old male patient who presents with gram positive ashley in blood ( bacteremia) septic shock Afib with RVR Elevated troponin, likely demand ischemia Epistaxis, resolved EVA Recommendations Follow blood cultures : ID and sensitivity on pressors Continue IV Zosyn for GPB. need CT chest/ abdomen and pelvis repeat 2 sets of blood cx, 11/28, Gram Positive Cocci in clusters IV amiodarone on IV heparin Cards on board crit time 35 minutes Prognosis gaurded discussed with Dr Capps Plan discussed with: Patient, Other ILIANA HAAS MD Nov 28, 2024 08:09
[2024-11-28 08:11] LABS: Basophils # (auto) 0 10 ^3/uL (0-0.2); Basophils % (auto) 0.2 % (0.0-2.0); Eosinophils # (auto) 0 10 ^3/uL (0-0.8); Eosinophils % (auto) 0.2 % (0.0-7.0); Hematocrit 35.4 % (41.0-53.0); Hemoglobin 12.1 g/dL (13.5-17.5); INR 1.25 (0.9-1.15); Lymphocytes % (auto) 14.5 % (10.0-50.0); Mean Corpuscular Hemoglobin 32.4 pg (28.0-32.0); Mean Corpuscular Hgb Conc. 34.2 g/dL (32.0-36.0); Mean Corpuscular Volume 94.6 fL (80.0-100.0); Monocytes # (auto) 0.9 10 ^3/uL (0-1.3); Monocytes % (auto) 14.2 % (0.0-12.0); Neutrophils # (auto) 4.6 10 ^3/uL (1.6-8.6); Neutrophils % (auto) 70.9 % (37.0-80.0); Nucleated Red Blood Cells % 0.1 %; Partial Thromboplastin Time 51.2 SEC (24.5-34.5); Platelet Count (auto) 79 10^3/uL (140-450); Red Blood Cells 3.74 10^6/uL (4.5-5.90); Red Cell Distribution Width 17.2 % (11.8-14.3); White Blood Cell 6.5 10^3/uL (4.4-10.8)
--- NOTE | 2024-11-28 10:24 | DVHPN2 ---
Progress Note Date Seen: Nov 28, 2024 Medical Necessity Reason Pt with a Central, PICC or Fol: Yes The following are medically ne: Lubin Catheter Reason for lubin catheter: Strict I&O Subjective Review of Systems: RESPIRATORY:Abnormal Other Systems: Patient seen and examined by myself on follow-up today, O2 nasal cannula Objective vital signs Vital Sign Date Time Temp Pulse Resp B/P (MAP) Pulse Ox O2 Delivery O2 Flow Rate FiO2 11/28/24 10:00 94 Nasal Cannula* 2 28 11/28/24 10:00 94 11/28/24 09:45 17 11/28/24 08:00 98.2 98.2 Total Intake and Output 11/27/24 11/27/24 11/28/24 15:00 23:00 07:00 Intake Total 571.832 ml 1128.836 ml 881.336 ml Output Total 600 ml 750 ml Balance 571.832 ml 528.836 ml 131.336 ml medications Current Medications Medications Dose Ordered Sig/Monica Route Start Time Stop Time Status Last Admin Dose Admin Docusate Sodium 100 mg BIDPRN PRN PO 11/22/24 21:00 Acetaminophen 650 mg Q6HP PRN PO 11/22/24 21:00 Acetaminophen/ Hydrocodone Bitart 1 tab Q4HP PRN PO 11/22/24 21:00 Ondansetron HCl 4 mg Q4HP PRN IV 11/22/24 21:00 Nitroglycerin 0.4 mg Q5MINP PRN SL 11/22/24 21:00 Morphine Sulfate 2 mg Q30M PRN IV 11/22/24 21:00 Norepinephrine Bitartrate 250 ml @ 3.75 mls/hr Q24H IV 11/25/24 19:30 11/26/24 17:52 7.5 MLS/HR Metoprolol Tartrate 25 mg BID PO 11/25/24 20:00 Hold Ipratropium [place] 0.5 mg Q6HR NEB 11/26/24 12:00 11/28/24 07:31 0.5 MG Levalbuterol HCl 1.25 mg Q6HR NEB 11/26/24 12:00 11/28/24 07:31 1.25 MG Pantoprazole Sodium 40 mg DAILY IV 11/27/24 10:00 11/27/24 09:24 40 MG Phenylephrine HCl 250 ml @ 30 mls/hr Q8H20M IV 11/26/24 18:00 11/27/24 02:39 30 MLS/HR Amiodarone HCl 250 ml @ 16.667 mls/ hr Q15H IV 11/27/24 15:15 11/28/24 08:08 16.667 MLS/HR Sodium Bicarbonate 50 ml/ Sodium Chloride 1,050 ml @ 70 mls/hr Q15H IV 11/27/24 11:15 11/28/24 02:59 70 MLS/HR Heparin Sodium/ Dextrose 250 ml @ 11 mls/hr [id number] IV 11/27/24 18:00 Piperacillin Sod/ Tazobactam Sod 100 ml @ 25 mls/hr Q8H IV 11/28/24 10:00 Examination: LUNGS:Normal, CVS:Normal, MSK:Normal laboratory and microbiology Laboratory Tests 11/28/24 07:00 11/27/24 04:59 Test 11/27/24 04:59 Range/Units Serum Glucose 110 H 74-106 mg/dL Microbiology Date/Time Source Procedure Growth Status 11/26/24 15:12 Blood Blood Culture - Preliminary Resulted 11/26/24 13:30 Urine - Midstream Clean Catch Urine Culture - Preliminary Resulted 11/25/24 23:45 Nose MRSA Screen - Final Complete Problem List/Assessment/Plan Problem List/Assessment/Plan Acute kidney injury superimposed Chronic Kidney Disease secondary hemodynamic mediated Congestive heart failure, ejection fraction 35% AFib with RVR Epistaxis Gram-positive cocci bacteremia Metabolic acidosis Transaminitis Hypertension Anemia due to blood loss Recommendations Kidney function slightly improving today Increased urine output Lubin catheter Strict I&Os IVF half NS with sodium bicarbonate 50 mEq at 70 cc/hour kidney ultrasound reported bilateral echogenic kidney IV antibiotics Cardiology consult Blood pressure control We will continue to follow Plan discussed with: Patient My Orders My Orders Orders - JOSÉ ANTONIO HODGE MD Procedure Category Date Status Time Kidney US 11/27/24 Resulted 11:10 Sod Chl 0.45% PHA 11/27/24 In Process (Sodi... W/Sodium 11:15 JOSÉ ANTONIO HODGE MD Nov 28, 2024 10:24
[2024-11-28 11:02] LABS: Large Platelets MODERA; Platelet Estimate Decrea
--- NOTE | 2024-11-28 12:02 | DVHPN2 ---
Progress Note - Dictate Date Seen: Nov 28, 2024 Medical Necessity Reason Pt with a Central, PICC or Fol: Yes The following are medically ne: Lubin Catheter Reason for lubin catheter: Strict I&O Subjective Has a Lubin catheter. Heart rate is controlled. On amiodarone as well as heparin drip. Getting out of bed ambulating with a walker with physical therapy. vital signs Vital Sign Date Time Temp Pulse Resp B/P (MAP) Pulse Ox O2 Delivery O2 Flow Rate FiO2 11/28/24 10:15 104 29 100 11/28/24 10:00 Nasal Cannula* 2 28 11/28/24 08:00 98.2 98.2 Total Intake and Output 11/27/24 11/27/24 11/28/24 15:00 23:00 07:00 Intake Total 571.832 ml 1128.836 ml 881.336 ml Output Total 600 ml 750 ml Balance 571.832 ml 528.836 ml 131.336 ml medications Current Medications Medications Dose Ordered Sig/Monica Route Start Time Stop Time Status Last Admin Dose Admin Docusate Sodium 100 mg BIDPRN PRN PO 11/22/24 21:00 Acetaminophen 650 mg Q6HP PRN PO 11/22/24 21:00 Acetaminophen/ Hydrocodone Bitart 1 tab Q4HP PRN PO 11/22/24 21:00 Ondansetron HCl 4 mg Q4HP PRN IV 11/22/24 21:00 Nitroglycerin 0.4 mg Q5MINP PRN SL 11/22/24 21:00 Morphine Sulfate 2 mg Q30M PRN IV 11/22/24 21:00 Norepinephrine Bitartrate 250 ml @ 3.75 mls/hr Q24H IV 11/25/24 19:30 11/26/24 17:52 7.5 MLS/HR Metoprolol Tartrate 25 mg BID PO 11/25/24 20:00 Hold Ipratropium [place] 0.5 mg Q6HR NEB 11/26/24 12:00 11/28/24 07:31 0.5 MG Levalbuterol HCl 1.25 mg Q6HR NEB 11/26/24 12:00 11/28/24 07:31 1.25 MG Pantoprazole Sodium 40 mg DAILY IV 11/27/24 10:00 11/28/24 11:26 40 MG Phenylephrine HCl 250 ml @ 30 mls/hr Q8H20M IV 11/26/24 18:00 11/27/24 02:39 30 MLS/HR Amiodarone HCl 250 ml @ 16.667 mls/ hr Q15H IV 11/27/24 15:15 11/28/24 08:08 16.667 MLS/HR Sodium Bicarbonate 50 ml/ Sodium Chloride 1,050 ml @ 70 mls/hr Q15H IV 11/27/24 11:15 11/28/24 02:59 70 MLS/HR Heparin Sodium/ Dextrose 250 ml @ 11 mls/hr [id number] IV 11/27/24 18:00 Piperacillin Sod/ Tazobactam Sod 100 ml @ 25 mls/hr Q8H IV 11/28/24 10:00 11/28/24 11:26 25 MLS/HR objective Heart irregular rate and rhythm tachy S1 plus S2. Lungs fair air movement without wheezing. Abdomen soft obese positive bowel sounds. Extremities no edema laboratory and microbiology Laboratory Tests 11/28/24 07:00 11/27/24 04:59 Test 11/27/24 04:59 Range/Units Serum Glucose 110 H 74-106 mg/dL Assessment/Plan AFib with RVR rate is controlled. We will start him on oral amiodarone and turn of the amiodarone drip. Continue heparin drip for prevention of embolic stroke. Patient had nosebleeds therefore Eliquis is discontinued. Further clinical management per clinical course and recommendations from the consultants. Discussed with the patient's nurse regarding care plan at bedside. Problems(with codes): (1) Epistaxis (2) Demand ischemia Plan discussed with: KARTIK Dobson MD Nov 28, 2024 12:02
[2024-11-28] MEDS: AMIODARONE HCL 200 MG TAB PO ONE (13:33)
[2024-11-28] MEDS: APIXABAN 2.5 MG TAB PO ONE (13:53)
--- NOTE | 2024-11-28 18:41 | DVHPN2 ---
Consult Progress Note Date Seen: Nov 28, 2024 Subjective Patient reports: Feels better Review of Systems: HEENT:Abnormal, CVS:Abnormal ( Less tachycardic.), RESPIRATORY:Abnormal (Less shortness of breath. Patient feels better.), GI:Normal, :Normal, MSK:Normal, NEURO:Normal Objective vital signs Vital Sign Date Time Temp Pulse Resp B/P (MAP) Pulse Ox O2 Delivery O2 Flow Rate FiO2 11/28/24 17:00 97.8 81 18 113/68 (83) 99 97.8 11/28/24 12:22 Nasal Cannula 2.0 11/28/24 12:22 28 Total Intake and Output 11/27/24 11/27/24 11/28/24 15:00 23:00 07:00 Intake Total 571.832 ml 1128.836 ml 881.336 ml Output Total 600 ml 750 ml Balance 571.832 ml 528.836 ml 131.336 ml medications Current Medications Medications Dose Ordered Sig/Monica Route Start Time Stop Time Status Last Admin Dose Admin Docusate Sodium 100 mg BIDPRN PRN PO 11/22/24 21:00 Acetaminophen 650 mg Q6HP PRN PO 11/22/24 21:00 Acetaminophen/ Hydrocodone Bitart 1 tab Q4HP PRN PO 11/22/24 21:00 Ondansetron HCl 4 mg Q4HP PRN IV 11/22/24 21:00 Nitroglycerin 0.4 mg Q5MINP PRN SL 11/22/24 21:00 Morphine Sulfate 2 mg Q30M PRN IV 11/22/24 21:00 Metoprolol Tartrate 25 mg BID PO 11/25/24 20:00 Hold Ipratropium [place] 0.5 mg Q6HR NEB 11/26/24 12:00 11/28/24 12:22 0.5 MG Levalbuterol HCl 1.25 mg Q6HR NEB 11/26/24 12:00 11/28/24 12:22 1.25 MG Amiodarone HCl 250 ml @ 16.667 mls/ hr Q15H IV 11/27/24 15:15 11/28/24 08:08 16.667 MLS/HR Sodium Bicarbonate 50 ml/ Sodium Chloride 1,050 ml @ 70 mls/hr Q15H IV 11/27/24 11:15 11/28/24 02:59 70 MLS/HR Piperacillin Sod/ Tazobactam Sod 100 ml @ 25 mls/hr Q8H IV 11/28/24 10:00 11/28/24 11:26 25 MLS/HR Magnesium Oxide 400 mg DAILY PO 11/29/24 10:00 Apixaban 2.5 mg BID PO 11/28/24 22:00 Amiodarone HCl 200 mg Q12HR PO 11/28/24 22:00 Examination: GENERAL:Normal, HEENT:Normal, LUNGS:Abnormal, CVS:Abnormal ( 2/6 systolic ejection murmur with diminished A2 component), MSK:Normal, SKIN:Normal, NEURO:Normal, :Normal laboratory and microbiology Laboratory Tests 11/28/24 07:00 11/27/24 04:59 Test 11/27/24 04:59 Range/Units Serum Glucose 110 H 74-106 mg/dL Problem List/Assessment/Plan Problem List/Assessment/Plan Severe aortic stenosis. Respiratory tract infection. Uncontrolled atrial fibrillation. Thrombocytopenia. Elevated chads score. Patient will require referral to tertiary care center once overall improvement of his heart rate and respiratory status. Workup for thrombocytopenia and anemia is relevant. He will require possible TAVR. This will be discussed with family in the a.m.. An outpatient referral can be generated. he will require antiarrhythmic therapy. Eliquis and amiodarone as well as digoxin prescribed for Anticoagulation, rate and rhythm control. Patient will definitely require outpatient follow up Plan discussed with: Other ( patient does not understand extent of disease. We will discuss with family members tomorrow.) Date of Service: Nov 28, 2024 Billing Provider: CHRISTY NIETO Sr., MD Cardiology Common Codes: 39968-OGXESTD INP/OBS CARE (High) CHRISTY NIETO Sr., MD Nov 28, 2024 18:41
[2024-11-28] MEDS: APIXABAN 2.5 MG TAB PO SCH (21:35)
[2024-11-28] MEDS: AMIODARONE HCL 200 MG TAB PO SCH (21:36)
[2024-11-28] MEDS ORDERED: AMIODARONE HCL 200 MG TAB PO SCH ×2 (22:00)
--- NOTE | 2024-11-28 23:00 | DVHPN2 ---
Progress Note - Dictate Date Seen: Nov 28, 2024 Medical Necessity Reason Pt with a Central, PICC or Fol: Yes The following are medically ne: Lubin Catheter Reason for lubin catheter: Strict I&O Subjective Patient seen and examined at bedside. Remains on supplemental oxygen Overnight events reviewed. vital signs Vital Sign Date Time Temp Pulse Resp B/P (MAP) Pulse Ox O2 Delivery O2 Flow Rate FiO2 11/28/24 19:01 93 18 99 11/28/24 18:53 Room Air* 0 21 11/28/24 17:00 97.8 113/68 (83) 97.8 Total Intake and Output 11/27/24 11/27/24 11/28/24 15:00 23:00 07:00 Intake Total 571.832 ml 1128.836 ml 881.336 ml Output Total 600 ml 750 ml Balance 571.832 ml 528.836 ml 131.336 ml medications Current Medications Medications Dose Ordered Sig/Monica Route Start Time Stop Time Status Last Admin Dose Admin Docusate Sodium 100 mg BIDPRN PRN PO 11/22/24 21:00 Acetaminophen 650 mg Q6HP PRN PO 11/22/24 21:00 Acetaminophen/ Hydrocodone Bitart 1 tab Q4HP PRN PO 11/22/24 21:00 Ondansetron HCl 4 mg Q4HP PRN IV 11/22/24 21:00 Nitroglycerin 0.4 mg Q5MINP PRN SL 11/22/24 21:00 Morphine Sulfate 2 mg Q30M PRN IV 11/22/24 21:00 Metoprolol Tartrate 25 mg BID PO 11/25/24 20:00 Hold Ipratropium [place] 0.5 mg Q6HR NEB 11/26/24 12:00 11/28/24 18:53 0.5 MG Levalbuterol HCl 1.25 mg Q6HR NEB 11/26/24 12:00 11/28/24 18:53 1.25 MG Amiodarone HCl 250 ml @ 16.667 mls/ hr Q15H IV 11/27/24 15:15 11/28/24 08:08 16.667 MLS/HR Sodium Bicarbonate 50 ml/ Sodium Chloride 1,050 ml @ 70 mls/hr Q15H IV 11/27/24 11:15 11/28/24 19:22 70 MLS/HR Piperacillin Sod/ Tazobactam Sod 100 ml @ 25 mls/hr Q8H IV 11/28/24 10:00 11/28/24 19:22 25 MLS/HR Magnesium Oxide 400 mg DAILY PO 11/29/24 10:00 Apixaban 2.5 mg BID PO 11/28/24 22:00 11/28/24 21:35 2.5 MG Amiodarone HCl 200 mg Q12HR PO 11/28/24 22:00 11/28/24 21:36 200 MG objective Gen.: Patient lying in bed in no apparent distress. On supplemental oxygen. Head: Normocephalic, atraumatic. Eyes: EOMI/PERRLA. Ears: Normal hearing. Normal anatomy. Neck/trachea: Trachea midline, supple. Nose: Normal external anatomy. Mouth: Moist mucous membranes. Chest: Decreased air entry bilaterally. No wheezing or rhonchi. Cardiovascular: Positive S1, positive S2. Regular rate and rhythm. Abdomen: Positive bowel sounds in all 4 quadrants. Soft, non-tender, non- distended. : Deferred. Rectal: Deferred. Skin: Warm, dry. Intact. Extremities: 2+ radial pulses bilaterally. No lower extremity edema. Neuro: Awake, alert, oriented x3. No gross motor or sensory deficits. Cranial nerves II through XII intact. Gait not assessed. laboratory and microbiology Laboratory Tests 11/28/24 07:00 11/27/24 04:59 Test 11/27/24 04:59 Range/Units Serum Glucose 110 H 74-106 mg/dL Assessment/Plan Impression: Acute hypoxic respiratory failure Pneumonia likely gram negative Septic shock Atrial fibrillation with RVR Elevated Troponin Obesity BMI 33 CHF exacerbation Acute kidney injury Leukocytosis Pleural effusion Atelectasis Events: Remains on supplemental oxygen, 2 LPM NC Taper O2 as tolerated Off Heparin - transitioned to Eliquis Off amio drip - Amiodarone PO. Cardiology recs appreciated. Continue bronchodilators Continue antibiotics Incentive spirometry Pt stable for downgrade to telemetry Labs and imaging reviewed. Rest of plan as noted below. Plan: Supplemental oxygen Keep o2 sat above 92% Influenza and COVID swabs were negative. Antibiotics F/u cultures Pressors if necessary for hemodynamic support Titrate to keep MAP above 65 mmHg. Central line placement for administration of vasoactive medications and blood draws. Monitor renal function due to EVA Maintain euvolemia. Monitor electrolytes. Supplement as necessary Monitor ins/outs DVT prophylaxis GI prophylaxis-Protonix Prognosis: Poor given multiple comorbidities. Rest of plan per hospitalist and other consultants. Thank you Dr. Capps for allowing me to participate in this patient's care. Further recommendations will depend on patient's clinical course. Please do not hesitate to contact me if you have any questions or concerns. This medical document was created using an electronic medical record system with [employer] dictation system. Although this document has been carefully reviewed, there may still be some phonetic and typographical errors. These areas are purely typographical due to imperfections of the software programs, and do not reflect any compromise in the patient's medical care. Plan discussed with: Patient, Other (SYBIL Tran) ASA GUILLAUME MD Nov 28, 2024 23:00
[2024-11-29] VITALS (19 sets, daily range): BP systolic 115–137; BP diastolic 59–95; PULSE 87–118; RESP 20–22; TEMP 97.3–98.7; O2SAT 90–100
[2024-11-29 07:48] LABS: Basophils # (auto) 0 10 ^3/uL (0-0.2); Basophils % (auto) 0.2 % (0.0-2.0); Eosinophils # (auto) 0 10 ^3/uL (0-0.8); Eosinophils % (auto) 0.4 % (0.0-7.0); Hemoglobin 13.4 g/dL (13.5-17.5); Lymphocytes # (auto) 1.1 10 ^3/uL (0.4-5.4); Lymphocytes % (auto) 14.9 % (10.0-50.0); Mean Corpuscular Hemoglobin 32.3 pg (28.0-32.0); Mean Corpuscular Hgb Conc. 34.2 g/dL (32.0-36.0); Mean Corpuscular Volume 94.2 fL (80.0-100.0); Monocytes # (auto) 0.9 10 ^3/uL (0-1.3); Monocytes % (auto) 12.4 % (0.0-12.0); Neutrophils # (auto) 5.3 10 ^3/uL (1.6-8.6); Neutrophils % (auto) 72.1 % (37.0-80.0); Nucleated Red Blood Cells % 0.1 %; Platelet Count (auto) 99 10^3/uL (140-450); Red Blood Cells 4.14 10^6/uL (4.5-5.90); Red Cell Distribution Width 16.7 % (11.8-14.3); White Blood Cell 7.3 10^3/uL (4.4-10.8)
[2024-11-29 07:53] LABS: Sodium 143 mmol/L (136-145)
[2024-11-29 07:54] LABS: Anion Gap 10 (5-15); Carbon Dioxide 23 mmol/L (20-31)
[2024-11-29 07:55] LABS: Calcium 9.2 mg/dL (8.7-10.4)
[2024-11-29 08:00] LABS: BUN/Creatinine Ratio 12.7 (10.0-20.0); Blood Urea Nitrogen 18 mg/dL (9-23); Magnesium 1.8 mg/dL (1.6-2.6)
[2024-11-29 08:01] LABS: Chloride 110 mmol/L (98-107); Glucose 128 mg/dL (74-106)
--- NOTE | 2024-11-29 09:41 | DVHPN2 ---
Progress Note Date Seen: Nov 29, 2024 Medical Necessity Reason Pt with a Central, PICC or Fol: Yes The following are medically ne: Lubin Catheter Reason for lubin catheter: Strict I&O Subjective Patient reports: No new complaints Review of Systems: GI:Normal Objective vital signs Vital Sign Date Time Temp Pulse Resp B/P (MAP) Pulse Ox O2 Delivery O2 Flow Rate FiO2 11/29/24 09:00 97.3 94 20 132/84 (100) 97 97.3 11/29/24 06:11 Nasal Cannula* 2 28 Total Intake and Output 11/28/24 11/28/24 11/29/24 15:00 23:00 07:00 Intake Total 828.002 ml 42 ml 225 ml Output Total 700 ml 200 ml Balance 828.002 ml -658 ml 25 ml medications Current Medications Medications Dose Ordered Sig/Monica Route Start Time Stop Time Status Last Admin Dose Admin Docusate Sodium 100 mg BIDPRN PRN PO 11/22/24 21:00 Acetaminophen 650 mg Q6HP PRN PO 11/22/24 21:00 Acetaminophen/ Hydrocodone Bitart 1 tab Q4HP PRN PO 11/22/24 21:00 Ondansetron HCl 4 mg Q4HP PRN IV 11/22/24 21:00 Nitroglycerin 0.4 mg Q5MINP PRN SL 11/22/24 21:00 Morphine Sulfate 2 mg Q30M PRN IV 11/22/24 21:00 Metoprolol Tartrate 25 mg BID PO 11/25/24 20:00 Hold Ipratropium [place] 0.5 mg Q6HR NEB 11/26/24 12:00 11/29/24 06:08 0.5 MG Levalbuterol HCl 1.25 mg Q6HR NEB 11/26/24 12:00 11/29/24 06:08 1.25 MG Amiodarone HCl 250 ml @ 16.667 mls/ hr Q15H IV 11/27/24 15:15 11/28/24 08:08 16.667 MLS/HR Sodium Bicarbonate 50 ml/ Sodium Chloride 1,050 ml @ 70 mls/hr Q15H IV 11/27/24 11:15 11/28/24 19:22 70 MLS/HR Piperacillin Sod/ Tazobactam Sod 100 ml @ 25 mls/hr Q8H IV 11/28/24 10:00 11/29/24 01:40 25 MLS/HR Magnesium Oxide 400 mg DAILY PO 11/29/24 10:00 Apixaban 2.5 mg BID PO 11/28/24 22:00 11/28/24 21:35 2.5 MG Amiodarone HCl 200 mg Q12HR PO 11/28/24 22:00 11/28/24 21:36 200 MG Examination: GENERAL:Normal, HEENT:Normal, NECK:Normal laboratory and microbiology Laboratory Tests 11/29/24 07:09 Test 11/29/24 07:09 Range/Units Serum Glucose 128 H 74-106 mg/dL Microbiology Date/Time Source Procedure Growth Status 11/28/24 07:05 Blood Blood Culture - Preliminary NO GROWTH AFTER 24 HOURS OF INCUBATION. Resulted 11/26/24 13:30 Urine - Midstream Clean Catch Urine Culture - Final Complete 11/25/24 23:45 Nose MRSA Screen - Final Complete Problem List/Assessment/Plan Problem List/Assessment/Plan Acute kidney injury ckd 3a Congestive heart failure, ejection fraction 35% AFib with RVR Epistaxis Gram-positive cocci bacteremia Metabolic acidosis Transaminitis Hypertension Anemia due to blood loss Lubin catheter Strict I&Os continue IVF kidney ultrasound reported bilateral echogenic kidney IV antibiotics Cardiology consult Blood pressure control renal function has stabilized Plan discussed with: Patient ADELA SWIFT MD Nov 29, 2024 09:41
--- NOTE | 2024-11-29 09:53 | DVH ---
Procedure: CT CT AB PEL WO CON-NO ORAL OR IV 11/29/2024 08:37 AM Indication: bacteremia :Gram positive bacilli Comparison Study: None available at time of dictation. Technique: Axial images were obtained and reformatted in coronal and sagittal planes. All CT scans at this medical facility are performed using dose modulation techniques as appropriate t o a performed exam including the following: Automated exposure control was utilized; adjustment of th e MA and/or KV according to patient size; and use of iterative reconstruction technique. CT Dose: CTDI volume is 23.28 mGy. Dose-length product is 1381.99 mGy*cm FINDINGS: Lower Chest: Moderate cardiomegaly. Coronary artery calcification. Artificial cardiac valve versus c alcification of aortic valve leaflets. Small bilateral pleural effusions with mild adjacent pulmonary opacities likely compressive atelectasis. Mild interstitial edema in bibasilar regions noted. Hepatobiliary: Cholelithiasis. Gallbladder wall is not well evaluated due to motion degradation. Spleen: Unremarkable. Pancreas: Unremarkable. Adrenal Glands: Unremarkable. tract: The kidneys are normal in size bilaterally without hydronephrosis or nephrolithiasis. Numer ous bilateral renal cysts measuring up to 1.7 cm in the right kidney and 2.5 cm in the left kidney. A 1.3 cm hypodense lesion in lateral cortex of the mid pole of right kidney subcentimeter peripheral c alcifications bilateral renal cortical thinning especially in the upper poles noted. Mild diffuse kylie dder wall thickening could be at least in part due to lack of distention. Subcentimeter focus of air is seen in the bladder lumen that could be related to recent instrumentation. Correlate with history . GI tract: Small sliding hiatal hernia. Altered normal rugal pattern in gastric fundus may represent u nderlying ulceration. No evidence of small bowel obstruction. There is sigmoid diverticulosis without diverticulitis. The appendix is normal. Lymphatics: No mesenteric, retroperitoneal or periportal lymphadenopathy. Vasculature: Aorta is normal in caliber. Scattered calcified plaques are noted. Pelvic Organs: Severe prostatic hyperplasia, 6.7 cm in transverse. Bones/soft tissues: No acute abnormality. Degenerative changes of the lumbar spine noted. Small fat-c ontaining umbilical hernia. Severe symmetric bilateral gynecomastia. Mild bilateral hip joint osteoar thritis. Partial ankylosis of the bilateral sacroiliac joints. Partial fusion mild bilateral joints. Subcentimeter sclerotic foci right femoral head and neck small subcentimeter focus left iliac wing. flowing anterior ossification is noted in the lower thoracic spine at several levels with preservatio n of disc spaces contiguous compatible with diffuse idiopathic skeletal hyperostosis. Other: None. IMPRESSION: 1. CHF, small bilateral pleural effusions and mild bibasilar interstitial edema. 2. Diffuse atherosclerotic disease. 3. Cholelithiasis. Gallbladder wall is not well evaluated in this exam due to motion degradation. If there is clinical concern for cholecystitis, further evaluation with gallbladder ultrasound should b e considered. 4. . Multiple bilateral lesions, mostly cystic. A complex 1.3 cm lesion noted midpole of the right k idney with peripheral calcifications. These lesions are incompletely evaluated without IV contrast. Recommend further evaluation by renal ultrasound and/or multiphasic abdominal CT scan or MRI without and with IV contrast utilizing a dedicated renal mass protocol. 5. Mild circumferential mural thickening of the urinary bladder likely due to lack of distention and/ or longstanding outlet obstruction. Cystitis or an infiltrative mural lesion can not be ruled out. Recommend correlation with urinalysis and follow-up by bladder ultrasound. In addition, subcentimete r focus of air is seen in the bladder lumen that could be related to recent instrumentation. Correla te with history. 6. Sigmoid diverticulosis without diverticulitis. 7. Small sliding hiatal hernia. Altered normal rugal pattern in gastric fundus may represent underlyi ng ulceration Further evaluation with EGD could be completed if clinically indicated. 8. Severe prostatic hyperplasia. Correlate with PSA. 9. Partial ankylosis of the bilateral sacroiliac joints may reflect sequela of prior sacroiliitis or underlying seronegative spondyloarthropathies. Recommend clinical and biochemical correlation. 10. Subcentimeter sclerotic foci in the right proximal femur and left iliac bone may represent bone i slands in the absence of known malignancy. Further evaluation with whole-body bone scan could be comp leted if osteoblastic metastasis suspected.
[2024-11-29] MEDS: MAGNESIUM OXIDE 400 MG TAB PO SCH (10:16)
--- NOTE | 2024-11-29 14:43 | ECG ---
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
--- NOTE | 2024-11-29 14:44 | ECG ---
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
--- NOTE | 2024-11-29 14:44 | ECG ---
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
--- NOTE | 2024-11-29 16:26 | DVHPN2 ---
Progress Note - Dictate Date Seen: Nov 29, 2024 Medical Necessity Reason Pt with a Central, PICC or Fol: Yes The following are medically ne: Lubin Catheter Reason for lubin catheter: Strict I&O Subjective Patient has a Lubin catheter. No new acute complaint noted at this time. Getting out of bed ambulating with a walker with physical therapy. vital signs Vital Sign Date Time Temp Pulse Resp B/P (MAP) Pulse Ox O2 Delivery O2 Flow Rate FiO2 11/29/24 12:54 97.8 87 20 115/59 (77) 91 97.8 11/29/24 10:52 0.0 21 11/29/24 10:04 Room Air Total Intake and Output 11/28/24 11/28/24 11/29/24 15:00 23:00 07:00 Intake Total 828.002 ml 42 ml 225 ml Output Total 700 ml 200 ml Balance 828.002 ml -658 ml 25 ml medications Current Medications Medications Dose Ordered Sig/Monica Route Start Time Stop Time Status Last Admin Dose Admin Docusate Sodium 100 mg BIDPRN PRN PO 11/22/24 21:00 Acetaminophen 650 mg Q6HP PRN PO 11/22/24 21:00 Acetaminophen/ Hydrocodone Bitart 1 tab Q4HP PRN PO 11/22/24 21:00 Ondansetron HCl 4 mg Q4HP PRN IV 11/22/24 21:00 Nitroglycerin 0.4 mg Q5MINP PRN SL 11/22/24 21:00 Morphine Sulfate 2 mg Q30M PRN IV 11/22/24 21:00 Metoprolol Tartrate 25 mg BID PO 11/25/24 20:00 Hold Ipratropium [place] 0.5 mg Q6HR NEB 11/26/24 12:00 11/29/24 11:35 0.5 MG Levalbuterol HCl 1.25 mg Q6HR NEB 11/26/24 12:00 11/29/24 11:35 1.25 MG Amiodarone HCl 250 ml @ 16.667 mls/ hr Q15H IV 11/27/24 15:15 11/28/24 08:08 16.667 MLS/HR Sodium Bicarbonate 50 ml/ Sodium Chloride 1,050 ml @ 70 mls/hr Q15H IV 11/27/24 11:15 11/28/24 19:22 70 MLS/HR Piperacillin Sod/ Tazobactam Sod 100 ml @ 25 mls/hr Q8H IV 11/28/24 10:00 11/29/24 10:15 25 MLS/HR Magnesium Oxide 400 mg DAILY PO 11/29/24 10:00 11/29/24 10:16 400 MG Apixaban 2.5 mg BID PO 11/28/24 22:00 11/29/24 10:16 2.5 MG Amiodarone HCl 200 mg Q12HR PO 11/28/24 22:00 11/29/24 10:16 200 MG objective HEENT: Atraumatic Neck: No swelling Lungs: Equal air entry and clear to auscultation Cardiovascular: S1 S2 heard no murmur Abdomen: Soft nontender, no organomegaly, nondistended Neuro: sedated, unable to assess Psych: unable to assess laboratory and microbiology Laboratory Tests 11/29/24 07:09 Test 11/29/24 07:09 Range/Units Serum Glucose 128 H 74-106 mg/dL Assessment/Plan Patient is an 89-year-old male patient who presents with # sclerotic right proximal femur and left iliac bone Coag neg bacteremia ( possible contamination) gram positive ashley in blood ( bacteremia): Bacillus species # bladder wall thickening Cystitis septic shock resolved Afib with RVR: stable EVA Aortic Stenosis Elevated troponin, likely demand ischemia Recommendations Continue IV Zosyn for GPB. : BAcillus Species Reviewed CT abdomen and pelvis: findings noted. consider whole body bone scan to rule out malignancy.. there is a sclerotic lesion in right prox femur and left iliac bone repeat 2 sets of blood cx, 11/28, Blood culture showed: Gram Positive Cocci in clusters IV amiodarone on oral anticoagulation Cards on board thank you for opportunity to care Plan discussed with: ILIANA Bennett MD Nov 29, 2024 16:26
--- NOTE | 2024-11-29 16:49 | DVHPN2 ---
Progress Note - Dictate Date Seen: Nov 29, 2024 Medical Necessity Reason Pt with a Central, PICC or Fol: Yes The following are medically ne: Lubin Catheter Reason for lubin catheter: Strict I&O Subjective Lubin catheter removed. Downgrade to telemetry floor. He has family including son is at bedside. Patient is having intermittent episodes of confusion. Heart rate still in AFib 100-120 range vital signs Vital Sign Date Time Temp Pulse Resp B/P (MAP) Pulse Ox O2 Delivery O2 Flow Rate FiO2 11/29/24 12:54 97.8 87 20 115/59 (77) 91 97.8 11/29/24 10:52 0.0 21 11/29/24 10:04 Room Air Total Intake and Output 11/28/24 11/28/24 11/29/24 15:00 23:00 07:00 Intake Total 828.002 ml 42 ml 225 ml Output Total 700 ml 200 ml Balance 828.002 ml -658 ml 25 ml medications Current Medications Medications Dose Ordered Sig/Monica Route Start Time Stop Time Status Last Admin Dose Admin Docusate Sodium 100 mg BIDPRN PRN PO 11/22/24 21:00 Acetaminophen 650 mg Q6HP PRN PO 11/22/24 21:00 Acetaminophen/ Hydrocodone Bitart 1 tab Q4HP PRN PO 11/22/24 21:00 Ondansetron HCl 4 mg Q4HP PRN IV 11/22/24 21:00 Nitroglycerin 0.4 mg Q5MINP PRN SL 11/22/24 21:00 Morphine Sulfate 2 mg Q30M PRN IV 11/22/24 21:00 Metoprolol Tartrate 25 mg BID PO 11/25/24 20:00 Hold Ipratropium [place] 0.5 mg Q6HR NEB 11/26/24 12:00 11/29/24 11:35 0.5 MG Levalbuterol HCl 1.25 mg Q6HR NEB 11/26/24 12:00 11/29/24 11:35 1.25 MG Amiodarone HCl 250 ml @ 16.667 mls/ hr Q15H IV 11/27/24 15:15 11/28/24 08:08 16.667 MLS/HR Sodium Bicarbonate 50 ml/ Sodium Chloride 1,050 ml @ 70 mls/hr Q15H IV 11/27/24 11:15 11/28/24 19:22 70 MLS/HR Piperacillin Sod/ Tazobactam Sod 100 ml @ 25 mls/hr Q8H IV 11/28/24 10:00 11/29/24 10:15 25 MLS/HR Magnesium Oxide 400 mg DAILY PO 11/29/24 10:00 11/29/24 10:16 400 MG Apixaban 2.5 mg BID PO 11/28/24 22:00 11/29/24 10:16 2.5 MG Amiodarone HCl 200 mg Q12HR PO 11/28/24 22:00 11/29/24 10:16 200 MG objective Alert and awake oriented to place and person. Does not know much about his history or why he is in the hospital when asked. Family is at bedside. Heart irregular rate and rhythm tachy S1 plus S2. Lungs fair air movement without wheezing. Abdomen soft obese positive bowel sounds. Extremities no edema laboratory and microbiology Laboratory Tests 11/29/24 07:09 Test 11/29/24 07:09 Range/Units Serum Glucose 128 H 74-106 mg/dL Assessment/Plan AFib with RVR rate is controlled. Acute kidney injury improve Hematuria resolved Metabolic encephalopathy I will increase his amiodarone to 400 b.i.d. due to AFib with tachycardia. Continue low-dose Eliquis as started by Cardiology. Discussed with the family regarding risks of bleeding versus benefits of preventing embolic strokes. I will order MRI of the brain to rule out any stroke given his confusion. Patient's son is requesting about placement plus long-term care/boarding care for him given the patient lives alone in a trailer. We will have social Service consultation to talked with the son regarding discharge planning and long-term placement. Otherwise continue rest of supportive care and treatment. Further clinical management per clinical course. I have updated the patient/family and nurse regarding his care at bedside. Plan discussed with: Other KARTIK VILLAVICENCIO MD Nov 29, 2024 16:49
[2024-11-29] MEDS: AMIODARONE HCL 200 MG TAB PO SCH (21:30)
--- NOTE | 2024-11-29 23:15 | DVHPN2 ---
Progress Note - Dictate Date Seen: Nov 29, 2024 Medical Necessity Reason Pt with a Central, PICC or Fol: Yes The following are medically ne: Lubin Catheter Reason for lubin catheter: Strict I&O Subjective Patient seen and examined at bedside. Remains on supplemental oxygen Overnight events reviewed. vital signs Vital Sign Date Time Temp Pulse Resp B/P (MAP) Pulse Ox O2 Delivery O2 Flow Rate FiO2 11/29/24 20:50 98.7 118 22 125/62 (83) 97 98.7 11/29/24 20:00 Nasal Cannula* 3 32 Total Intake and Output 11/28/24 11/28/24 11/29/24 15:00 23:00 07:00 Intake Total 828.002 ml 42 ml 225 ml Output Total 700 ml 200 ml Balance 828.002 ml -658 ml 25 ml medications Current Medications Medications Dose Ordered Sig/Monica Route Start Time Stop Time Status Last Admin Dose Admin Docusate Sodium 100 mg BIDPRN PRN PO 11/22/24 21:00 Acetaminophen 650 mg Q6HP PRN PO 11/22/24 21:00 Acetaminophen/ Hydrocodone Bitart 1 tab Q4HP PRN PO 11/22/24 21:00 Ondansetron HCl 4 mg Q4HP PRN IV 11/22/24 21:00 Nitroglycerin 0.4 mg Q5MINP PRN SL 11/22/24 21:00 Morphine Sulfate 2 mg Q30M PRN IV 11/22/24 21:00 Metoprolol Tartrate 25 mg BID PO 11/25/24 20:00 Hold Piperacillin Sod/ Tazobactam Sod 100 ml @ 25 mls/hr Q8H IV 11/28/24 10:00 11/29/24 17:26 25 MLS/HR Magnesium Oxide 400 mg DAILY PO 11/29/24 10:00 11/29/24 10:16 400 MG Apixaban 2.5 mg BID PO 11/28/24 22:00 11/29/24 21:30 2.5 MG Amiodarone HCl 400 mg Q12HR PO 11/29/24 22:00 11/29/24 21:30 400 MG Ipratropium [place] 0.5 mg Q6HR PRN NEB 11/29/24 17:00 Levalbuterol HCl 1.25 mg Q6HR PRN NEB 11/29/24 17:00 objective Gen.: Patient lying in bed in no apparent distress. On supplemental oxygen. Head: Normocephalic, atraumatic. Eyes: EOMI/PERRLA. Ears: Normal hearing. Normal anatomy. Neck/trachea: Trachea midline, supple. Nose: Normal external anatomy. Mouth: Moist mucous membranes. Chest: Decreased air entry bilaterally. No wheezing or rhonchi. Cardiovascular: Positive S1, positive S2. Regular rate and rhythm. Abdomen: Positive bowel sounds in all 4 quadrants. Soft, non-tender, non- distended. : Deferred. Rectal: Deferred. Skin: Warm, dry. Intact. Extremities: 2+ radial pulses bilaterally. No lower extremity edema. Neuro: Awake, alert, oriented x3. No gross motor or sensory deficits. Cranial nerves II through XII intact. Gait not assessed. laboratory and microbiology Laboratory Tests 11/29/24 07:09 Test 11/29/24 07:09 Range/Units Serum Glucose 128 H 74-106 mg/dL Assessment/Plan Impression: Acute hypoxic respiratory failure Pneumonia likely gram negative Septic shock Atrial fibrillation with RVR Elevated Troponin Obesity BMI 33 CHF exacerbation Acute kidney injury Leukocytosis Pleural effusion Atelectasis Events: Remains on supplemental oxygen, 3 LPM NC Taper O2 as tolerated Eliquis BID. Continue amiodarone PO. Cardiology recs appreciated. Continue bronchodilators Continue antibiotics Incentive spirometry Labs and imaging reviewed. Rest of plan as noted below. Plan: Supplemental oxygen Keep o2 sat above 92% Influenza and COVID swabs were negative. Antibiotics F/u cultures Pressors if necessary for hemodynamic support Titrate to keep MAP above 65 mmHg. Central line placement for administration of vasoactive medications and blood draws. Monitor renal function due to EVA Maintain euvolemia. Monitor electrolytes. Supplement as necessary Monitor ins/outs DVT prophylaxis GI prophylaxis-Protonix Prognosis: Poor given multiple comorbidities. Rest of plan per hospitalist and other consultants. Thank you Dr. Capps for allowing me to participate in this patient's care. Further recommendations will depend on patient's clinical course. Please do not hesitate to contact me if you have any questions or concerns. This medical document was created using an electronic medical record system with [employer] system. Although this document has been carefully reviewed, there may still be some phonetic and typographical errors. These areas are purely typographical due to imperfections of the software programs, and do not reflect any compromise in the patient's medical care. Plan discussed with: Patient, Other (SYBIL Sood) ASA GUILLAUME MD Nov 29, 2024 23:15
[2024-11-30] VITALS (11 sets, daily range): BP systolic 109–129; BP diastolic 56–76; PULSE 94–115; RESP 18–22; TEMP 97.4–98.7; O2SAT 95–100
--- NOTE | 2024-11-30 09:04 | DVH ---
EXAMINATION: MRI BRAIN HEAD WO CONTRAST INDICATION: aloc COMPARISON: CT scan of the head dated 11/20/2020 TECHNIQUE: Multiplanar, multisequence magnetic resonance imaging of the brain was performed without the use of i ntravenous contrast. FINDINGS: No evidence of acute or remote infarct. No intracranial hemorrhage. No mass effect. There is periventricular/deep white matter T2/FLAIR hyperintensity is nonspecific, but most commonly associated with chronic microvascular disease. The ventricles and sulci are normal in size for age. Clear basal cisterns. Flow voids in the major intracranial vessels are maintained. No abnormality of the orbits. Mastoid air cells are clear. Mild mucosal thickening in the maxillary sinuses. No abnormality of the visualized osseous structures and extracranial soft tissues. IMPRESSION: 1. No acute infarct, intracranial hemorrhage, mass effect, or hydrocephalus.
--- NOTE | 2024-11-30 10:05 | DVHPN2 ---
Progress Note Date Seen: Nov 30, 2024 Medical Necessity Reason Pt with a Central, PICC or Fol: Yes The following are medically ne: Lubin Catheter Reason for lubin catheter: Strict I&O Subjective Patient reports: Feels better Review of Systems: HEENT:Normal Objective vital signs Vital Sign Date Time Temp Pulse Resp B/P (MAP) Pulse Ox O2 Delivery O2 Flow Rate FiO2 11/30/24 08:00 104 Nasal Cannula* 3 32 11/30/24 07:49 97.6 18 120/73 (89) 98 97.6 Total Intake and Output 11/29/24 11/29/24 11/30/24 15:00 23:00 07:00 Intake Total 340 ml 530 ml Output Total 1100 ml Balance 340 ml -570 ml medications Current Medications Medications Dose Ordered Sig/Monica Route Start Time Stop Time Status Last Admin Dose Admin Docusate Sodium 100 mg BIDPRN PRN PO 11/22/24 21:00 Acetaminophen 650 mg Q6HP PRN PO 11/22/24 21:00 Acetaminophen/ Hydrocodone Bitart 1 tab Q4HP PRN PO 11/22/24 21:00 Ondansetron HCl 4 mg Q4HP PRN IV 11/22/24 21:00 Nitroglycerin 0.4 mg Q5MINP PRN SL 11/22/24 21:00 Morphine Sulfate 2 mg Q30M PRN IV 11/22/24 21:00 Metoprolol Tartrate 25 mg BID PO 11/25/24 20:00 Hold Piperacillin Sod/ Tazobactam Sod 100 ml @ 25 mls/hr Q8H IV 11/28/24 10:00 11/30/24 09:42 25 MLS/HR Magnesium Oxide 400 mg DAILY PO 11/29/24 10:00 11/30/24 09:41 400 MG Apixaban 2.5 mg BID PO 11/28/24 22:00 11/30/24 09:41 2.5 MG Amiodarone HCl 400 mg Q12HR PO 11/29/24 22:00 11/30/24 09:41 400 MG Ipratropium [place] 0.5 mg Q6HR PRN NEB 11/29/24 17:00 Levalbuterol HCl 1.25 mg Q6HR PRN NEB 11/29/24 17:00 Examination: GENERAL:Normal, HEENT:Normal, CVS:Normal laboratory and microbiology Laboratory Tests 11/29/24 07:09 Test 11/29/24 07:09 Range/Units Serum Glucose 128 H 74-106 mg/dL Microbiology Date/Time Source Procedure Growth Status 11/28/24 07:05 Blood Blood Culture - Preliminary Resulted 11/26/24 13:30 Urine - Midstream Clean Catch Urine Culture - Final Complete 11/25/24 23:45 Nose MRSA Screen - Final Complete Problem List/Assessment/Plan Problem List/Assessment/Plan Acute kidney injury ckd 3a Congestive heart failure, ejection fraction 35% AFib with RVR Epistaxis Gram-positive cocci bacteremia Metabolic acidosis Transaminitis Hypertension Anemia due to blood loss Lubin catheter Strict I&Os continue IVF kidney ultrasound reported bilateral echogenic kidney IV antibiotics Cardiology consult Blood pressure control renal function has stabilized, no new recs Plan discussed with: Patient ADELA SWIFT MD Nov 30, 2024 10:05
--- NOTE | 2024-11-30 17:01 | DVHPN2 ---
Progress Note - Dictate Date Seen: Nov 30, 2024 Medical Necessity Reason Pt with a Central, PICC or Fol: Yes The following are medically ne: Lubin Catheter Reason for lubin catheter: Strict I&O Subjective Patient has a Lubin catheter. No new acute complaint noted at this time. Getting out of bed ambulating with a walker with physical therapy. On pressors vital signs Vital Sign Date Time Temp Pulse Resp B/P (MAP) Pulse Ox O2 Delivery O2 Flow Rate FiO2 11/30/24 12:25 98.1 109 18 109/56 (73) 100 98.1 11/30/24 10:27 Nasal Cannula* 3 32 Total Intake and Output 11/29/24 11/29/24 11/30/24 15:00 23:00 07:00 Intake Total 340 ml 530 ml Output Total 1100 ml Balance 340 ml -570 ml medications Current Medications Medications Dose Ordered Sig/Monica Route Start Time Stop Time Status Last Admin Dose Admin Docusate Sodium 100 mg BIDPRN PRN PO 11/22/24 21:00 Acetaminophen 650 mg Q6HP PRN PO 11/22/24 21:00 Acetaminophen/ Hydrocodone Bitart 1 tab Q4HP PRN PO 11/22/24 21:00 Ondansetron HCl 4 mg Q4HP PRN IV 11/22/24 21:00 Nitroglycerin 0.4 mg Q5MINP PRN SL 11/22/24 21:00 Morphine Sulfate 2 mg Q30M PRN IV 11/22/24 21:00 Metoprolol Tartrate 25 mg BID PO 11/25/24 20:00 Hold Piperacillin Sod/ Tazobactam Sod 100 ml @ 25 mls/hr Q8H IV 11/28/24 10:00 11/30/24 09:42 25 MLS/HR Magnesium Oxide 400 mg DAILY PO 11/29/24 10:00 11/30/24 09:41 400 MG Apixaban 2.5 mg BID PO 11/28/24 22:00 11/30/24 09:41 2.5 MG Amiodarone HCl 400 mg Q12HR PO 11/29/24 22:00 11/30/24 09:41 400 MG Ipratropium [place] 0.5 mg Q6HR PRN NEB 11/29/24 17:00 Levalbuterol HCl 1.25 mg Q6HR PRN NEB 11/29/24 17:00 Digoxin 0.125 mg DAILY PO 12/01/24 10:00 objective HEENT: Atraumatic Neck: No swelling Lungs: Equal air entry and clear to auscultation Cardiovascular: S1 S2 heard no murmur Abdomen: Soft nontender, no organomegaly, nondistended Neuro: sedated, unable to assess Psych: unable to assess laboratory and microbiology Laboratory Tests 11/29/24 07:09 Test 11/29/24 07:09 Range/Units Serum Glucose 128 H 74-106 mg/dL Assessment/Plan Patient is an 89-year-old male patient who presents with # sclerotic right proximal femur and left iliac bone Coag neg bacteremia ( possible contamination) gram positive ashley in blood ( bacteremia): Bacillus species # bladder wall thickening Cystitis septic shock resolved Afib with RVR: stable EVA Aortic Stenosis Elevated troponin, likely demand ischemia Recommendations Changed Zosyn to Unasyn : Bacillus Species Reviewed CT abdomen and pelvis: findings noted. consider whole body bone scan to rule out malignancy.. there is a sclerotic lesion in right prox femur and left iliac bone repeat 2 sets of blood cx, 11/28, Blood culture showed: Gram Positive Cocci in clusters IV amiodarone on oral anticoagulation Cards on board Thank you for consult. Plan discussed with: ILIANA Bennett MD Nov 30, 2024 17:01
[2024-11-30] MEDS: DIGOXIN (250MCG/ML) 2 ML AMPULE IV ONE (17:11)
--- NOTE | 2024-11-30 17:18 | DVHPN2 ---
Progress Note - Dictate Date Seen: Nov 30, 2024 Medical Necessity Reason Pt with a Central, PICC or Fol: Yes The following are medically ne: Lubin Catheter Reason for lubin catheter: Strict I&O Subjective Heart rate is controlled in the low 90s. Patient's mentation is back to normal today. MRI of the brain does not show any acute pathology. Patient is getting out of bed ambulating with physical therapy. vital signs Vital Sign Date Time Temp Pulse Resp B/P (MAP) Pulse Ox O2 Delivery O2 Flow Rate FiO2 11/30/24 17:11 111 11/30/24 17:02 97.5 18 119/64 (82) 99 97.5 11/30/24 10:27 Nasal Cannula* 3 32 Total Intake and Output 11/29/24 11/29/24 11/30/24 15:00 23:00 07:00 Intake Total 340 ml 530 ml Output Total 1100 ml Balance 340 ml -570 ml medications Current Medications Medications Dose Ordered Sig/Monica Route Start Time Stop Time Status Last Admin Dose Admin Docusate Sodium 100 mg BIDPRN PRN PO 11/22/24 21:00 Acetaminophen 650 mg Q6HP PRN PO 11/22/24 21:00 Acetaminophen/ Hydrocodone Bitart 1 tab Q4HP PRN PO 11/22/24 21:00 Ondansetron HCl 4 mg Q4HP PRN IV 11/22/24 21:00 Nitroglycerin 0.4 mg Q5MINP PRN SL 11/22/24 21:00 Morphine Sulfate 2 mg Q30M PRN IV 11/22/24 21:00 Metoprolol Tartrate 25 mg BID PO 11/25/24 20:00 Hold Piperacillin Sod/ Tazobactam Sod 100 ml @ 25 mls/hr Q8H IV 11/28/24 10:00 11/30/24 17:11 25 MLS/HR Magnesium Oxide 400 mg DAILY PO 11/29/24 10:00 11/30/24 09:41 400 MG Apixaban 2.5 mg BID PO 11/28/24 22:00 11/30/24 09:41 2.5 MG Amiodarone HCl 400 mg Q12HR PO 11/29/24 22:00 11/30/24 09:41 400 MG Ipratropium [place] 0.5 mg Q6HR PRN NEB 11/29/24 17:00 Levalbuterol HCl 1.25 mg Q6HR PRN NEB 11/29/24 17:00 Digoxin 0.125 mg DAILY PO 12/01/24 10:00 objective Alert and awake oriented to place and person. Mentation appears to be back to normal baseline status. Heart irregular rate and rhythm tachy S1 plus S2. Lungs fair air movement without wheezing. Abdomen soft obese positive bowel sounds. Extremities no edema laboratory and microbiology Laboratory Tests 11/29/24 07:09 Test 11/29/24 07:09 Range/Units Serum Glucose 128 H 74-106 mg/dL Assessment/Plan AFib with RVR rate is controlled. Acute kidney injury improve Hematuria resolved Metabolic encephalopathy Continue current amiodarone and give digoxin given heart rate still in the 90s. Continue anticoagulation as he is on. Continue rest of supportive care and treatment. Further clinical management per clinical course. Social Service involved regarding discharge planning to [facility] care versus home with the home health/in-home support services. Discussed with the patient's nurse regarding care plan at bedside Plan discussed with: Other KARTIK VILLAVICENCIO MD Nov 30, 2024 17:18
[2024-11-30] MEDS: AMPICILLIN & SULBACTAM SODIUM 3 GM in SODIUM CHL 0.9% 100 ML IV SCH (21:00)
--- NOTE | 2024-11-30 22:15 | DVHPN2 ---
Progress Note - Dictate Date Seen: Nov 30, 2024 Medical Necessity Reason Pt with a Central, PICC or Fol: Yes The following are medically ne: Lubin Catheter Reason for lubin catheter: Strict I&O Subjective Patient seen and examined at bedside. Remains on supplemental oxygen Overnight events reviewed. vital signs Vital Sign Date Time Temp Pulse Resp B/P (MAP) Pulse Ox O2 Delivery O2 Flow Rate FiO2 11/30/24 19:22 97 Nasal Cannula 3.0 11/30/24 19:22 32 11/30/24 17:11 111 11/30/24 17:02 97.5 18 119/64 (82) 97.5 Total Intake and Output 11/29/24 11/29/24 11/30/24 15:00 23:00 07:00 Intake Total 340 ml 530 ml Output Total 1100 ml Balance 340 ml -570 ml medications Current Medications Medications Dose Ordered Sig/Monica Route Start Time Stop Time Status Last Admin Dose Admin Docusate Sodium 100 mg BIDPRN PRN PO 11/22/24 21:00 Acetaminophen 650 mg Q6HP PRN PO 11/22/24 21:00 Acetaminophen/ Hydrocodone Bitart 1 tab Q4HP PRN PO 11/22/24 21:00 Ondansetron HCl 4 mg Q4HP PRN IV 11/22/24 21:00 Nitroglycerin 0.4 mg Q5MINP PRN SL 11/22/24 21:00 Morphine Sulfate 2 mg Q30M PRN IV 11/22/24 21:00 Metoprolol Tartrate 25 mg BID PO 11/25/24 20:00 Hold Magnesium Oxide 400 mg DAILY PO 11/29/24 10:00 11/30/24 09:41 400 MG Apixaban 2.5 mg BID PO 11/28/24 22:00 11/30/24 21:26 2.5 MG Amiodarone HCl 400 mg Q12HR PO 11/29/24 22:00 11/30/24 21:26 400 MG Ipratropium [place] 0.5 mg Q6HR PRN NEB 11/29/24 17:00 Levalbuterol HCl 1.25 mg Q6HR PRN NEB 11/29/24 17:00 Digoxin 0.125 mg DAILY PO 12/01/24 10:00 Ampicillin Sodium/ Sulbactam Sodium 3 gm/Sodium Chloride 100 ml @ 100 mls/hr Q6H IV 11/30/24 21:00 objective Gen.: Patient lying in bed in no apparent distress. On supplemental oxygen. Head: Normocephalic, atraumatic. Eyes: EOMI/PERRLA. Ears: Normal hearing. Normal anatomy. Neck/trachea: Trachea midline, supple. Nose: Normal external anatomy. Mouth: Moist mucous membranes. Chest: Decreased air entry bilaterally. No wheezing or rhonchi. Cardiovascular: Positive S1, positive S2. Regular rate and rhythm. Abdomen: Positive bowel sounds in all 4 quadrants. Soft, non-tender, non- distended. : Deferred. Rectal: Deferred. Skin: Warm, dry. Intact. Extremities: 2+ radial pulses bilaterally. No lower extremity edema. Neuro: Awake, alert, oriented x3. No gross motor or sensory deficits. Cranial nerves II through XII intact. Gait not assessed. laboratory and microbiology Laboratory Tests 11/29/24 07:09 Test 11/29/24 07:09 Range/Units Serum Glucose 128 H 74-106 mg/dL Assessment/Plan Impression: Acute hypoxic respiratory failure Pneumonia likely gram negative Septic shock Atrial fibrillation with RVR Elevated Troponin Obesity BMI 33 CHF exacerbation Acute kidney injury Leukocytosis Pleural effusion Atelectasis Events: Remains on supplemental oxygen, 3 LPM NC Taper O2 as tolerated Left SCV in place. Eliquis BID. Continue amiodarone PO. Cardiology recs appreciated. Continue bronchodilators Continue antibiotics Incentive spirometry Head of bed elevation Aspiration precautions PT. Disposition per hospitalist. Labs and imaging reviewed. Rest of plan as noted below. Plan: Supplemental oxygen Keep o2 sat above 92% Influenza and COVID swabs were negative. Antibiotics F/u cultures Pressors if necessary for hemodynamic support Titrate to keep MAP above 65 mmHg. Central line placement for administration of vasoactive medications and blood draws. Monitor renal function due to EVA Maintain euvolemia. Monitor electrolytes. Supplement as necessary Monitor ins/outs DVT prophylaxis GI prophylaxis-Protonix Prognosis: Poor given multiple comorbidities. Rest of plan per hospitalist and other consultants. Thank you Dr. Capps for allowing me to participate in this patient's care. Further recommendations will depend on patient's clinical course. Please do not hesitate to contact me if you have any questions or concerns. This medical document was created using an electronic medical record system with [employer] system. Although this document has been carefully reviewed, there may still be some phonetic and typographical errors. These areas are purely typographical due to imperfections of the software programs, and do not reflect any compromise in the patient's medical care. Plan discussed with: Patient, Other (SYBIL Anderson) ASA GUILLAUME MD Nov 30, 2024 22:15
[2024-12-01] VITALS (13 sets, daily range): BP systolic 112–149; BP diastolic 65–83; PULSE 89–109; RESP 18–20; TEMP 97.4–98.3; O2SAT 93–98
[2024-12-01] MEDS: LEVALBUTEROL HCL 1.25 MG/3 ML NEB NEB PRN (07:07)
[2024-12-01] MEDS: IPRATROPIUM BROM 0.5 MG/2.5ML INH SOL NEB PRN (07:08)
[2024-12-01] MEDS: DIGOXIN 0.125 MG TAB PO SCH (10:58)
--- NOTE | 2024-12-01 15:09 | DVHPN2 ---
Progress Note - Dictate Date Seen: Dec 01, 2024 Medical Necessity Reason Pt with a Central, PICC or Fol: Yes The following are medically ne: Lubin Catheter Reason for lubin catheter: Strict I&O Subjective He is comfortable in bed. Heart rate is improved. Hard of hearing. Patient is not confused. Knows his name that he is in the hospital and able to have meaningful normal conversation. vital signs Vital Sign Date Time Temp Pulse Resp B/P (MAP) Pulse Ox O2 Delivery O2 Flow Rate FiO2 12/01/24 10:58 102 12/01/24 10:00 97 Nasal Cannula 2.0 12/01/24 10:00 28 12/01/24 09:20 97.9 20 112/79 (90) 97.9 Total Intake and Output 11/30/24 11/30/24 12/01/24 15:00 23:00 07:00 Intake Total 280 ml 320 ml 1000 ml Output Total 750 ml 125 ml Balance 280 ml -430 ml 875 ml medications Current Medications Medications Dose Ordered Sig/Monica Route Start Time Stop Time Status Last Admin Dose Admin Docusate Sodium 100 mg BIDPRN PRN PO 11/22/24 21:00 Acetaminophen 650 mg Q6HP PRN PO 11/22/24 21:00 Acetaminophen/ Hydrocodone Bitart 1 tab Q4HP PRN PO 11/22/24 21:00 Ondansetron HCl 4 mg Q4HP PRN IV 11/22/24 21:00 Nitroglycerin 0.4 mg Q5MINP PRN SL 11/22/24 21:00 Morphine Sulfate 2 mg Q30M PRN IV 11/22/24 21:00 Metoprolol Tartrate 25 mg BID PO 11/25/24 20:00 Hold Magnesium Oxide 400 mg DAILY PO 11/29/24 10:00 12/01/24 10:57 400 MG Apixaban 2.5 mg BID PO 11/28/24 22:00 12/01/24 10:57 2.5 MG Amiodarone HCl 400 mg Q12HR PO 11/29/24 22:00 12/01/24 10:57 400 MG Ipratropium [place] 0.5 mg Q6HR PRN NEB 11/29/24 17:00 12/01/24 07:08 0.5 MG Levalbuterol HCl 1.25 mg Q6HR PRN NEB 11/29/24 17:00 12/01/24 07:07 1.25 MG Digoxin 0.125 mg DAILY PO 12/01/24 10:00 12/01/24 10:58 0.125 MG Ampicillin Sodium/ Sulbactam Sodium 3 gm/Sodium Chloride 100 ml @ 100 mls/hr Q6H IV 11/30/24 21:00 12/01/24 11:11 100 MLS/HR objective Alert and awake oriented to place and person. Mentation appears to be back to normal baseline status. Heart irregular rate and rhythm tachy S1 plus S2. Lungs fair air movement without wheezing. Abdomen soft obese positive bowel sounds. Extremities no edema laboratory and microbiology Laboratory Tests 11/29/24 07:09 Test 11/29/24 07:09 Range/Units Serum Glucose 128 H 74-106 mg/dL Assessment/Plan AFib with RVR rate is controlled. Acute kidney injury improve Hematuria resolved Metabolic encephalopathy Continue present management. Patient is ambulating about 60 ft. Patient however lives in a trailer by himself. Therefore the son/[id number]-ej-ryi who lives in [place] worried about him. Discussed with the Dr. Mario bernard smart energy specialist over the phone regarding his cardiac issues recommending outpatient follow up for valve replacement surgery. Meantime for his placement director social service are involved and talking to patient's son as well as patient. Patient himself wants to go back to his trailer home given his independent. Also [facility] manager case to come up with a plan for appropriate discharge in the next 24-48 hours. Plan discussed with: Other KARTIK VILLAVICENCIO MD Dec 01, 2024 15:09
[2024-12-01] MEDS: DOCUSATE SOD 100 MG CAP PO PRN (16:28)
--- NOTE | 2024-12-01 19:58 | DVHPN2 ---
Progress Note - Dictate Date Seen: Dec 01, 2024 Medical Necessity Reason Pt with a Central, PICC or Fol: Yes The following are medically ne: Lubin Catheter Reason for lubin catheter: Strict I&O Subjective Patient has a Lubin catheter. No new acute complaint noted at this time. Getting out of bed ambulating with a walker with physical therapy. vital signs Vital Sign Date Time Temp Pulse Resp B/P (MAP) Pulse Ox O2 Delivery O2 Flow Rate FiO2 12/01/24 17:22 97.8 102 20 138/79 (98) 95 97.8 12/01/24 10:00 Nasal Cannula 2.0 12/01/24 10:00 28 Total Intake and Output 11/30/24 11/30/24 12/01/24 15:00 23:00 07:00 Intake Total 280 ml 320 ml 1000 ml Output Total 750 ml 125 ml Balance 280 ml -430 ml 875 ml medications Current Medications Medications Dose Ordered Sig/Monica Route Start Time Stop Time Status Last Admin Dose Admin Docusate Sodium 100 mg BIDPRN PRN PO 11/22/24 21:00 12/01/24 16:28 100 MG Acetaminophen 650 mg Q6HP PRN PO 11/22/24 21:00 Acetaminophen/ Hydrocodone Bitart 1 tab Q4HP PRN PO 11/22/24 21:00 Ondansetron HCl 4 mg Q4HP PRN IV 11/22/24 21:00 Nitroglycerin 0.4 mg Q5MINP PRN SL 11/22/24 21:00 Morphine Sulfate 2 mg Q30M PRN IV 11/22/24 21:00 Metoprolol Tartrate 25 mg BID PO 11/25/24 20:00 Hold Magnesium Oxide 400 mg DAILY PO 11/29/24 10:00 12/01/24 10:57 400 MG Apixaban 2.5 mg BID PO 11/28/24 22:00 12/01/24 10:57 2.5 MG Amiodarone HCl 400 mg Q12HR PO 11/29/24 22:00 12/01/24 10:57 400 MG Ipratropium [place] 0.5 mg Q6HR PRN NEB 11/29/24 17:00 12/01/24 07:08 0.5 MG Levalbuterol HCl 1.25 mg Q6HR PRN NEB 11/29/24 17:00 12/01/24 07:07 1.25 MG Digoxin 0.125 mg DAILY PO 12/01/24 10:00 12/01/24 10:58 0.125 MG Ampicillin Sodium/ Sulbactam Sodium 3 gm/Sodium Chloride 100 ml @ 100 mls/hr Q6H IV 11/30/24 21:00 12/01/24 16:31 100 MLS/HR objective HEENT: Atraumatic Neck: No swelling Lungs: Equal air entry and clear to auscultation Cardiovascular: S1 S2 heard no murmur Abdomen: Soft nontender, no organomegaly, nondistended Neuro: sedated, unable to assess Psych: unable to assess laboratory and microbiology Laboratory Tests 11/29/24 07:09 Test 11/29/24 07:09 Range/Units Serum Glucose 128 H 74-106 mg/dL Assessment/Plan Patient is an 89-year-old male patient who presents with # sclerotic right proximal femur and left iliac bone Coag neg bacteremia ( possible contamination) gram positive ashley in blood ( bacteremia): Bacillus species # bladder wall thickening Cystitis septic shock resolved Afib with RVR: stable EVA Aortic Stenosis Elevated troponin, likely demand ischemia Recommendations Changed Zosyn to Unasyn : Bacillus Species Reviewed CT abdomen and pelvis: findings noted. consider whole body bone scan to rule out malignancy.. there is a sclerotic lesion in right prox femur and left iliac bone repeat 2 sets of blood cx, 11/28, Blood culture showed: Gram Positive Cocci in clusters IV amiodarone on oral anticoagulation Cards on board Thank you for consult. Plan discussed with: Patient, Other ILIANA HAAS MD Dec 01, 2024 19:58
--- NOTE | 2024-12-01 23:18 | DVHPN2 ---
Progress Note - Dictate Date Seen: Dec 01, 2024 Medical Necessity Reason Pt with a Central, PICC or Fol: Yes The following are medically ne: Lubin Catheter Reason for lubin catheter: Strict I&O Subjective Patient seen and examined at bedside. Remains on supplemental oxygen Overnight events reviewed. vital signs Vital Sign Date Time Temp Pulse Resp B/P (MAP) Pulse Ox O2 Delivery O2 Flow Rate FiO2 12/01/24 21:00 98.3 94 19 149/71 (97) 93 98.3 12/01/24 20:00 Nasal Cannula* 2 28 Total Intake and Output 11/30/24 11/30/24 12/01/24 15:00 23:00 07:00 Intake Total 280 ml 320 ml 1000 ml Output Total 750 ml 125 ml Balance 280 ml -430 ml 875 ml medications Current Medications Medications Dose Ordered Sig/Monica Route Start Time Stop Time Status Last Admin Dose Admin Docusate Sodium 100 mg BIDPRN PRN PO 11/22/24 21:00 12/01/24 16:28 100 MG Acetaminophen 650 mg Q6HP PRN PO 11/22/24 21:00 Acetaminophen/ Hydrocodone Bitart 1 tab Q4HP PRN PO 11/22/24 21:00 Ondansetron HCl 4 mg Q4HP PRN IV 11/22/24 21:00 Nitroglycerin 0.4 mg Q5MINP PRN SL 11/22/24 21:00 Morphine Sulfate 2 mg Q30M PRN IV 11/22/24 21:00 Metoprolol Tartrate 25 mg BID PO 11/25/24 20:00 Hold Magnesium Oxide 400 mg DAILY PO 11/29/24 10:00 12/01/24 10:57 400 MG Apixaban 2.5 mg BID PO 11/28/24 22:00 12/01/24 22:06 2.5 MG Amiodarone HCl 400 mg Q12HR PO 11/29/24 22:00 12/01/24 22:06 400 MG Ipratropium [place] 0.5 mg Q6HR PRN NEB 11/29/24 17:00 12/01/24 07:08 0.5 MG Levalbuterol HCl 1.25 mg Q6HR PRN NEB 11/29/24 17:00 12/01/24 07:07 1.25 MG Digoxin 0.125 mg DAILY PO 12/01/24 10:00 12/01/24 10:58 0.125 MG Ampicillin Sodium/ Sulbactam Sodium 3 gm/Sodium Chloride 100 ml @ 100 mls/hr Q6H IV 11/30/24 21:00 12/01/24 21:03 100 MLS/HR objective Gen.: Patient lying in bed in no apparent distress. On supplemental oxygen. Head: Normocephalic, atraumatic. Eyes: EOMI/PERRLA. Ears: Normal hearing. Normal anatomy. Neck/trachea: Trachea midline, supple. Nose: Normal external anatomy. Mouth: Moist mucous membranes. Chest: Decreased air entry bilaterally. No wheezing or rhonchi. Cardiovascular: Positive S1, positive S2. Regular rate and rhythm. Abdomen: Positive bowel sounds in all 4 quadrants. Soft, non-tender, non- distended. : Deferred. Rectal: Deferred. Skin: Warm, dry. Intact. Extremities: 2+ radial pulses bilaterally. No lower extremity edema. Neuro: Awake, alert, oriented x3. No gross motor or sensory deficits. Cranial nerves II through XII intact. Gait not assessed. laboratory and microbiology Laboratory Tests 11/29/24 07:09 Test 11/29/24 07:09 Range/Units Serum Glucose 128 H 74-106 mg/dL Assessment/Plan Impression: Acute hypoxic respiratory failure Pneumonia likely gram negative Septic shock Atrial fibrillation with RVR Elevated Troponin Obesity BMI 33 CHF exacerbation Acute kidney injury Leukocytosis Pleural effusion Atelectasis Events: Remains on supplemental oxygen, 2 LPM NC Taper O2 as tolerated Left SCV in place. Eliquis BID . Continue amiodarone PO. Digoxin PO Cardiology recs appreciated. Continue bronchodilators Continue antibiotics Awaiting followup blood cultures F/u ID recommendations. Incentive spirometry Head of bed elevation Aspiration precautions PT. Disposition per hospitalist. Awaiting placement. Labs and imaging reviewed. Rest of plan as noted below. Plan: Supplemental oxygen Keep o2 sat above 92% Influenza and COVID swabs were negative. Antibiotics F/u cultures Pressors if necessary for hemodynamic support Titrate to keep MAP above 65 mmHg. Central line placement for administration of vasoactive medications and blood draws. Monitor renal function due to EVA Maintain euvolemia. Monitor electrolytes. Supplement as necessary Monitor ins/outs DVT prophylaxis GI prophylaxis-Protonix Prognosis: Poor given multiple comorbidities. Rest of plan per hospitalist and other consultants. Thank you Dr. Capps for allowing me to participate in this patient's care. Further recommendations will depend on patient's clinical course. Please do not hesitate to contact me if you have any questions or concerns. This medical document was created using an electronic medical record system with [employer] dictation system. Although this document has been carefully reviewed, there may still be some phonetic and typographical errors. These areas are purely typographical due to imperfections of the software programs, and do not reflect any compromise in the patient's medical care. Plan discussed with: Patient, Other (SYBIL Fong) ASA GUILLAUME MD Dec 01, 2024 23:18
[2024-12-02] VITALS (14 sets, daily range): BP systolic 104–133; BP diastolic 65–85; PULSE 68–107; RESP 18–24; TEMP 97.7–98.6; O2SAT 92–99
[2024-12-02] MEDS ORDERED: LEVALBUTEROL HCL 1.25 MG/3 ML NEB ONE (09:10)
--- NOTE | 2024-12-02 15:44 | DVHDS2 ---
Discharge Summary Date of Admission Nov 22, 2024 at 20:49 Date of Discharge: Dec 02, 2024 Labs/Diagnostic Data: Laboratory Results Test 11/29/24 07:09 11/28/24 07:00 11/27/24 13:46 11/27/24 13:30 White Blood Count 7.3 10^3/uL (4.4-10.8) Red Blood Count 4.14 10^6/uL (4.5-5.90) Hemoglobin 13.4 g/dL (13.5-17.5) Hematocrit 39.0 % (41.0-53.0) Mean Corpuscular Volume 94.2 fL (80.0-100.0) Mean Corpuscular Hemoglobin 32.3 pg (28.0-32.0) Mean Corpuscular Hemoglobin Concent 34.2 g/dL (32.0-36.0) Red Cell Distribution Width 16.7 % (11.8-14.3) Platelet Count 99 10^3/uL (140-450) Mean Platelet Volume 11.0 fL (6.9-10.8) Neutrophils (%) (Auto) 72.1 % (37.0-80.0) Lymphocytes (%) (Auto) 14.9 % (10.0-50.0) Monocytes (%) (Auto) 12.4 % (0.0-12.0) Eosinophils (%) (Auto) 0.4 % (0.0-7.0) Basophils (%) (Auto) 0.2 % (0.0-2.0) Neutrophils # (Auto) 5.3 10 ^3/uL (1.6-8.6) Lymphocytes # (Auto) 1.1 10 ^3/uL (0.4-5.4) Monocytes # (Auto) 0.9 10 ^3/uL (0-1.3) Eosinophils # (Auto) 0 10 ^3/uL (0-0.8) Basophils # (Auto) 0 10 ^3/uL (0-0.2) Nucleated Red Blood Cells 0.1 % Sodium Level 143 mmol/L (136-145) Potassium Level 4.0 mmol/L (3.5-5.1) Chloride Level 110 mmol/L (98-107) Carbon Dioxide Level 23 mmol/L (20-31) Anion Gap 10 (5-15) Blood Urea Nitrogen 18 mg/dL (9-23) Creatinine 1.42 mg/dL (0.700-1.30) Glomerular Filtration Rate Calc 48 mL/min (>90) BUN/Creatinine Ratio 12.7 (10.0-20.0) Serum Glucose 128 mg/dL (74-106) Calcium Level 9.2 mg/dL (8.7-10.4) Magnesium Level 1.8 mg/dL (1.6-2.6) Platelet Estimate Decrea Large Platelets Modera Giant Platelets Prothrombin Time 13.0 sec (9.3-11.8) Prothrombin Time INR 1.25 (0.9-1.15) Activated Partial Thromboplast Time 51.2 SEC (24.5-34.5) Vitamin D 25-Hydroxy 51.6 ng/mL (30.0-100) Urine Color Yellow (Yellow) Urine Clarity Turbid (Clear) Urine pH 5.0 (5.0-9.0) Urine Specific [place] 1.018 (1.001-1.035) Urine Protein Trace (Negative) Urine Ketones Negative (Negative) Urine Blood 2+ /uL (Negative) Urine Nitrite Negative (Negative) Urine Bilirubin Negative (Negative) Urine Urobilinogen Normal mg/dL (Negative) Urine Leukocyte Esterase Negative /uL (Negative) Urine RBC 22 /hpf (0 - 3) Urine WBC 10 /hpf (0 - 3) Urine Squamous Epithelial Cells Few /hpf (<5) Urine Bacteria None seen /hpf (None Seen) Urine Granular Casts Few /lpf (0) Urine Yeast (Budding) Occasional /hpf (None Urine Creatinine 83.21 mg/dL (30.0-125.0) Urine Protein/Creatinine Ratio 0.52 Urine Sodium 51 mmol/L (40-220) Urine Glucose Normal mg/dL (Normal) Urine Total Protein 42.9 mg/dL (1-14) Test 11/27/24 04:59 11/26/24 15:03 11/26/24 11:40 11/25/24 12:27 Phosphorus Level 2.8 mg/dL (2.4-5.1) Triglycerides Level 104 mg/dL (< 150) Cholesterol Level 88 mg/dL (< 200) LDL Cholesterol 45 mg/dL (< 100) HDL Cholesterol 23 mg/dL (40-59) Thyroid Stimulating Hormone (TSH) 4.23 uIU/mL (0.55-4.78) Parathyroid Hormone (Intact) 320.3 pg/mL (18.4-80.1) Differential Total Cells Counted 100.0 (100) Neutrophils % (Manual) 75 (37.0-80.0) Band Neutrophils % (Manual) 9 Lymphocytes % (Manual) 9 (10.0-50.0) Monocytes % (Manual) 7 (0-12) Eosinophils % (Manual) 0 (0-7) Basophils % (Manual) 0 (0.0-2.0) Metamyelocytes % (manual) 0 Myelocytes % (Manual) 0 Promyelocytes % (Manual) 0 Blast Cells % (Manual) 0 Reactive Lymphocytes 0 Anisocytosis (manual) Slight Microcytosis Slight Macrocytosis Slight Lactic Acid Level 2.0 mmol/L (0.4-2.0) Aspartate Amino Transferase (AST) 530 U/L (13-40) Alanine Aminotransferase (ALT) 384 U/L (7-40) B-Type Natriuretic Peptide 1009.66 pg/mL (0-100) Influenza Type A Antigen Negative (Negative) Influenza Type B Antigen Negative (Negative) SARS-CoV-2 Antigen (Rapid) Negative (NEGATIVE) POC Glucose 107 mg/dl (70-106) Test 11/23/24 09:46 Troponin I High Sensitivity 45 ng/L (</=54) Other Laboratory Tests 11/29/24 07:09 Brief Hx & Hospital Course: 89-year-old male initially presented to the hospital with a epistaxis with a nasal bleeding. Patient has a nasal packing done. Patient was eventually admitted. Patient's hospital course was eventful for confusional episodes requiring sitter. Patient himself move his nasal packing. Patient's develop AFib with RVR requiring D OU admission on amiodarone drip and heparin drip. Cardiology was consulted , amiodarone was switched to p.o. as well as started on Eliquis. Also patient needed digoxin. Patient's hospital course was eventful for septic shock secondary to Gram-positive bacteremia with a Gram-positive ashley currently on Unasyn repeat blood cultures are negative. Patient will be discharged to home with the home hospice. Condition at Discharge: Stable Final Diagnosis/Problems List 1. Metabolic encephalopathy, resolved 2. AFib with a RVR currently rate controlled 3. Gram-positive bacteremia with Gram-positive rods repeat blood cultures are negative 4. Epistaxis status post nasal packing, status post nasal packing removed Discharge Disposition: Hospice - Home SNF Discharge Will this Physician continue t: No Discharge Instruct/Medications Diet: Cardiac 2g Na,low cholest Activity: No Restrictions, As Tolerated Follow Up/Referral: [facility] Medications: Amiodarone 400 mg p.o. q.12 hours Metoprolol tartrate 25 mg p.o. twice a day Digoxin 0.125 mg p.o. q.day Eliquis 2.5 mg p.o. twice a day Discharge Statement: "Patient was advised to return to the ER or call 911 if any headaches, dizziness, shortness of breath, chest pain, abdominal pain, bleeding, fevers, or worsening of medical condition. Patient was counseled about treatment plan, medications, possible side effects, patientverbalized understanding. All questions were answered to the best of my ability. This discharge took greater then 30 minutes in planning, reviewing documentation, counseling the patient, and discussing with other team members." ASSESSMENT ASSESSMENT Assessment 1. Metabolic encephalopathy, resolved 2. AFib with a RVR currently rate controlled 3. Gram-positive bacteremia with Gram-positive rods repeat blood cultures are negative 4. Epistaxis status post nasal packing, status post nasal packing removed Date of Service: Dec 02, 2024 Billing Provider: MARILEE BARAJAS MD Common Visit Codes: NOT BILLABLE MARILEE BARAJAS MD Dec 02, 2024 15:44
--- NOTE | 2024-12-02 21:43 | DVHPN2 ---
Progress Note - Dictate Date Seen: Dec 02, 2024 Medical Necessity Reason Pt with a Central, PICC or Fol: Yes The following are medically ne: Lubin Catheter Reason for lubin catheter: Strict I&O Subjective Patient has a Lubin catheter. Heart rate is improved. Hard of hearing. Patient is not confused. Getting out of bed ambulating with a walker with physical therapy. vital signs Vital Sign Date Time Temp Pulse Resp B/P (MAP) Pulse Ox O2 Delivery O2 Flow Rate FiO2 12/02/24 20:27 97 Nasal Cannula* 5 40 12/02/24 17:00 98.1 90 19 104/71 (82) 98.1 Total Intake and Output 12/01/24 12/01/24 12/02/24 15:00 23:00 07:00 Intake Total 100 ml 425 ml 650 ml Output Total 900 ml 500 ml Balance 100 ml -475 ml 150 ml medications Current Medications Medications Dose Ordered Sig/Monica Route Start Time Stop Time Status Last Admin Dose Admin Docusate Sodium 100 mg BIDPRN PRN PO 11/22/24 21:00 12/01/24 16:28 100 MG Acetaminophen 650 mg Q6HP PRN PO 11/22/24 21:00 Ondansetron HCl 4 mg Q4HP PRN IV 11/22/24 21:00 Nitroglycerin 0.4 mg Q5MINP PRN SL 11/22/24 21:00 Metoprolol Tartrate 25 mg BID PO 11/25/24 20:00 Hold Magnesium Oxide 400 mg DAILY PO 11/29/24 10:00 12/02/24 10:26 400 MG Apixaban 2.5 mg BID PO 11/28/24 22:00 12/02/24 10:26 2.5 MG Amiodarone HCl 400 mg Q12HR PO 11/29/24 22:00 12/02/24 10:26 400 MG Ipratropium [place] 0.5 mg Q6HR PRN NEB 11/29/24 17:00 12/02/24 08:45 0.5 MG Levalbuterol HCl 1.25 mg Q6HR PRN NEB 11/29/24 17:00 12/02/24 08:45 1.25 MG Digoxin 0.125 mg DAILY PO 12/01/24 10:00 12/02/24 10:26 0.125 MG Ampicillin Sodium/ Sulbactam Sodium 3 gm/Sodium Chloride 100 ml @ 100 mls/hr Q6H IV 11/30/24 21:00 12/02/24 21:15 100 MLS/HR objective HEENT: Atraumatic Neck: No swelling Lungs: Equal air entry and clear to auscultation Cardiovascular: S1 S2 heard no murmur Abdomen: Soft nontender, no organomegaly, nondistended Neuro: sedated, unable to assess Psych: unable to assess laboratory and microbiology Laboratory Tests 11/29/24 07:09 Test 11/29/24 07:09 Range/Units Serum Glucose 128 H 74-106 mg/dL Assessment/Plan Patient is an 89-year-old male patient who presents with # sclerotic right proximal femur and left iliac bone Coag neg bacteremia ( possible contamination) gram positive ashley in blood ( bacteremia): Bacillus species # bladder wall thickening Cystitis septic shock resolved Afib with RVR: stable EVA Aortic Stenosis Elevated troponin, likely demand ischemia Recommendations Changed Zosyn to Unasyn : Bacillus Species Reviewed CT abdomen and pelvis: findings noted. consider whole body bone scan to rule out malignancy.. there is a sclerotic lesion in right prox femur and left iliac bone repeat 2 sets of blood cx, 11/28, Blood culture showed: Gram Positive Cocci in clusters 11/30/2024 : blood cultures show no growth of bacteria 11/30/2024 : MRI of the brain was reviewed came back normal IV amiodarone on oral anticoagulation Cards on board Thank you for consult. Plan discussed with: ILIANA Bennett MD Dec 02, 2024 21:43
--- NOTE | 2024-12-02 23:27 | DVHPN2 ---
Progress Note - Dictate Date Seen: Dec 02, 2024 Medical Necessity Reason Pt with a Central, PICC or Fol: Yes The following are medically ne: Lubin Catheter Reason for lubin catheter: Strict I&O Subjective Patient seen and examined at bedside. Remains on supplemental oxygen Overnight events reviewed. vital signs Vital Sign Date Time Temp Pulse Resp B/P (MAP) Pulse Ox O2 Delivery O2 Flow Rate FiO2 12/02/24 21:00 97.7 88 18 130/65 (86) 92 97.7 12/02/24 20:27 Nasal Cannula* 5 40 Total Intake and Output 12/01/24 12/01/24 12/02/24 15:00 23:00 07:00 Intake Total 100 ml 425 ml 650 ml Output Total 900 ml 500 ml Balance 100 ml -475 ml 150 ml medications Current Medications Medications Dose Ordered Sig/Monica Route Start Time Stop Time Status Last Admin Dose Admin Docusate Sodium 100 mg BIDPRN PRN PO 11/22/24 21:00 12/01/24 16:28 100 MG Acetaminophen 650 mg Q6HP PRN PO 11/22/24 21:00 Ondansetron HCl 4 mg Q4HP PRN IV 11/22/24 21:00 Nitroglycerin 0.4 mg Q5MINP PRN SL 11/22/24 21:00 Metoprolol Tartrate 25 mg BID PO 11/25/24 20:00 Hold Magnesium Oxide 400 mg DAILY PO 11/29/24 10:00 12/02/24 10:26 400 MG Apixaban 2.5 mg BID PO 11/28/24 22:00 12/02/24 22:31 2.5 MG Amiodarone HCl 400 mg Q12HR PO 11/29/24 22:00 12/02/24 22:30 400 MG Ipratropium [place] 0.5 mg Q6HR PRN NEB 11/29/24 17:00 12/02/24 08:45 0.5 MG Levalbuterol HCl 1.25 mg Q6HR PRN NEB 11/29/24 17:00 12/02/24 08:45 1.25 MG Digoxin 0.125 mg DAILY PO 12/01/24 10:00 12/02/24 10:26 0.125 MG Ampicillin Sodium/ Sulbactam Sodium 3 gm/Sodium Chloride 100 ml @ 100 mls/hr Q6H IV 11/30/24:00 12/02/24 21:15 100 MLS/HR objective Gen.: Patient lying in bed in no apparent distress. On supplemental oxygen. Head: Normocephalic, atraumatic. Eyes: EOMI/PERRLA. Ears: Normal hearing. Normal anatomy. Neck/trachea: Trachea midline, supple. Nose: Normal external anatomy. Mouth: Moist mucous membranes. Chest: Decreased air entry bilaterally. No wheezing or rhonchi. Cardiovascular: Positive S1, positive S2. Regular rate and rhythm. Abdomen: Positive bowel sounds in all 4 quadrants. Soft, non-tender, non- distended. : Deferred. Rectal: Deferred. Skin: Warm, dry. Intact. Extremities: 2+ radial pulses bilaterally. No lower extremity edema. Neuro: Awake, alert, oriented x3. No gross motor or sensory deficits. Cranial nerves II through XII intact. Gait not assessed. laboratory and microbiology Laboratory Tests 11/29/24 07:09 Test 11/29/24 07:09 Range/Units Serum Glucose 128 H 74-106 mg/dL Assessment/Plan Impression: Acute hypoxic respiratory failure Pneumonia likely gram negative Septic shock Atrial fibrillation with RVR Elevated Troponin Obesity BMI 33 CHF exacerbation Acute kidney injury Leukocytosis Pleural effusion Atelectasis Events: Remains on supplemental oxygen, 5 LPM NC Taper O2 as tolerated Increased O2 requirements this evening to 5 L. Eliquis BID . Continue amiodarone PO. Digoxin PO Cardiology recs appreciated. Continue bronchodilators Continue antibiotics Blood cultures no growth after 48 hours ID recommendations appreciated Incentive spirometry Head of bed elevation Aspiration precautions PT. Disposition per hospitalist. Labs and imaging reviewed. Rest of plan as noted below. Plan: Supplemental oxygen Keep o2 sat above 92% Influenza and COVID swabs were negative. Antibiotics F/u cultures Pressors if necessary for hemodynamic support Titrate to keep MAP above 65 mmHg. Central line placement for administration of vasoactive medications and blood draws. Monitor renal function due to EVA Maintain euvolemia. Monitor electrolytes. Supplement as necessary Monitor ins/outs DVT prophylaxis GI prophylaxis-Protonix Prognosis: Poor given multiple comorbidities. Rest of plan per hospitalist and other consultants. Thank you Dr. Capps for allowing me to participate in this patient's care. Further recommendations will depend on patient's clinical course. Please do not hesitate to contact me if you have any questions or concerns. This medical document was created using an electronic medical record system with [employer] dictation system. Although this document has been carefully reviewed, there may still be some phonetic and typographical errors. These areas are purely typographical due to imperfections of the software programs, and do not reflect any compromise in the patient's medical care. Plan discussed with: Patient, Other (SYBIL Zabala MD) ASA GUILLAUME MD Dec 02, 2024 23:27
[2024-12-03] VITALS (11 sets, daily range): BP systolic 102–132; BP diastolic 53–79; PULSE 73–102; RESP 18–20; TEMP 97.7–99; O2SAT 93–99
--- NOTE | 2024-12-03 19:49 | DVHPN2 ---
Progress Note - Dictate Date Seen: Dec 03, 2024 Medical Necessity Reason Pt with a Central, PICC or Fol: Yes The following are medically ne: Lubin Catheter Reason for lubin catheter: Strict I&O Subjective Patient has a Lubin catheter. Patient on oxygen at 4 LPM via Nasal Cannula Heart rate is improved. Hard of hearing. Patient is not confused. Getting out of bed ambulating with a walker with physical therapy. vital signs Vital Sign Date Time Temp Pulse Resp B/P (MAP) Pulse Ox O2 Delivery O2 Flow Rate FiO2 12/03/24 16:59 97.9 101 18 132/73 (92) 95 97.9 12/03/24 10:13 Nasal Cannula 2.0 12/03/24 10:13 28 Total Intake and Output 12/02/24 12/02/24 12/03/24 15:00 23:00 07:00 Intake Total 100 ml 450 ml 100 ml Output Total 250 ml 445 ml Balance 100 ml 200 ml -345 ml medications Current Medications Medications Dose Ordered Sig/Monica Route Start Time Stop Time Status Last Admin Dose Admin Docusate Sodium 100 mg BIDPRN PRN PO 11/22/24 21:00 12/01/24 16:28 100 MG Acetaminophen 650 mg Q6HP PRN PO 11/22/24 21:00 Ondansetron HCl 4 mg Q4HP PRN IV 11/22/24 21:00 Nitroglycerin 0.4 mg Q5MINP PRN SL 11/22/24 21:00 Metoprolol Tartrate 25 mg BID PO 11/25/24 20:00 Hold Magnesium Oxide 400 mg DAILY PO 11/29/24 10:00 12/03/24 09:48 400 MG Apixaban 2.5 mg BID PO 11/28/24 22:00 12/03/24 09:48 2.5 MG Amiodarone HCl 400 mg Q12HR PO 11/29/24 22:00 12/03/24 09:48 400 MG Ipratropium [place] 0.5 mg Q6HR PRN NEB 11/29/24 17:00 12/02/24 08:45 0.5 MG Levalbuterol HCl 1.25 mg Q6HR PRN NEB 11/29/24 17:00 12/02/24 08:45 1.25 MG Digoxin 0.125 mg DAILY PO 12/01/24 10:00 12/03/24 09:50 0.125 MG Ampicillin Sodium/ Sulbactam Sodium 3 gm/Sodium Chloride 100 ml @ 100 mls/hr Q6H IV 11/30/24 21:00 12/03/24 15:22 100 MLS/HR objective HEENT: Atraumatic Neck: No swelling Lungs: Equal air entry and clear to auscultation Cardiovascular: S1 S2 heard no murmur Abdomen: Soft nontender, no organomegaly, nondistended Neuro: sedated, unable to assess Psych: unable to assess laboratory and microbiology Laboratory Tests 11/29/24 07:09 Test 11/29/24 07:09 Range/Units Serum Glucose 128 H 74-106 mg/dL Assessment/Plan Patient is an 89-year-old male patient who presents with # sclerotic right proximal femur and left iliac bone Coag neg bacteremia ( possible contamination) gram positive ashley in blood ( bacteremia): Bacillus species # bladder wall thickening Cystitis septic shock resolved Afib with RVR: stable EVA Aortic Stenosis Elevated troponin, likely demand ischemia Recommendations Changed Zosyn to Unasyn : Bacillus Species Reviewed CT abdomen and pelvis: findings noted. consider whole body bone scan to rule out malignancy.. there is a sclerotic lesion in right prox femur and left iliac bone repeat 2 sets of blood cx, 11/28, Blood culture showed: Gram Positive Cocci in clusters 11/30/2024 : blood cultures show no growth of bacteria 11/30/2024 : MRI of the brain was reviewed came back normal IV amiodarone on oral anticoagulation Cards on board Plan to discharge home with Hospice Thank you for consult. Plan discussed with: ILIANA Bennett MD Dec 03, 2024 19:49
--- NOTE | 2024-12-03 23:30 | DVHPN2 ---
Progress Note - Dictate Date Seen: Dec 03, 2024 Medical Necessity Reason Pt with a Central, PICC or Fol: Yes The following are medically ne: Lubin Catheter Reason for lubin catheter: Strict I&O Subjective Patient seen and examined at bedside. Remains on supplemental oxygen Overnight events reviewed. vital signs Vital Sign Date Time Temp Pulse Resp B/P (MAP) Pulse Ox O2 Delivery O2 Flow Rate FiO2 12/03/24 20:00 81 19 Nasal Cannula* 4 36 12/03/24 16:59 97.9 132/73 (92) 95 97.9 Total Intake and Output 12/02/24 12/02/24 12/03/24 15:00 23:00 07:00 Intake Total 100 ml 450 ml 100 ml Output Total 250 ml 445 ml Balance 100 ml 200 ml -345 ml medications Current Medications Medications Dose Ordered Sig/Monica Route Start Time Stop Time Status Last Admin Dose Admin Docusate Sodium 100 mg BIDPRN PRN PO 11/22/24 21:00 12/01/24 16:28 100 MG Acetaminophen 650 mg Q6HP PRN PO 11/22/24 21:00 Ondansetron HCl 4 mg Q4HP PRN IV 11/22/24 21:00 Nitroglycerin 0.4 mg Q5MINP PRN SL 11/22/24 21:00 Metoprolol Tartrate 25 mg BID PO 11/25/24 20:00 Hold Magnesium Oxide 400 mg DAILY PO 11/29/24 10:00 12/03/24 09:48 400 MG Apixaban 2.5 mg BID PO 11/28/24 22:00 12/03/24 09:48 2.5 MG Amiodarone HCl 400 mg Q12HR PO 11/29/24 22:00 12/03/24 22:47 400 MG Ipratropium [place] 0.5 mg Q6HR PRN NEB 11/29/24 17:00 12/02/24 08:45 0.5 MG Levalbuterol HCl 1.25 mg Q6HR PRN NEB 11/29/24 17:00 12/02/24 08:45 1.25 MG Digoxin 0.125 mg DAILY PO 12/01/24 10:00 12/03/24 09:50 0.125 MG Ampicillin Sodium/ Sulbactam Sodium 3 gm/Sodium Chloride 100 ml @ 100 mls/hr Q6H IV 11/30/24:00 12/03/24 21:00 100 MLS/HR objective Gen.: Patient lying in bed in no apparent distress. On supplemental oxygen. Head: Normocephalic, atraumatic. Eyes: EOMI/PERRLA. Ears: Normal hearing. Normal anatomy. Neck/trachea: Trachea midline, supple. Nose: Normal external anatomy. Mouth: Moist mucous membranes. Chest: Decreased air entry bilaterally. No wheezing or rhonchi. Cardiovascular: Positive S1, positive S2. Regular rate and rhythm. Abdomen: Positive bowel sounds in all 4 quadrants. Soft, non-tender, non- distended. : Deferred. Rectal: Deferred. Skin: Warm, dry. Intact. Extremities: 2+ radial pulses bilaterally. No lower extremity edema. Neuro: Awake, alert, oriented x3. No gross motor or sensory deficits. Cranial nerves II through XII intact. Gait not assessed. laboratory and microbiology Laboratory Tests 11/29/24 07:09 Test 11/29/24 07:09 Range/Units Serum Glucose 128 H 74-106 mg/dL Assessment/Plan Impression: Acute hypoxic respiratory failure Pneumonia likely gram negative Septic shock Atrial fibrillation with RVR Elevated Troponin Obesity BMI 33 CHF exacerbation Acute kidney injury Leukocytosis Pleural effusion Atelectasis Events: Remains on supplemental oxygen, 2 LPM NC Taper O2 as tolerated Improved O2 requirements, down from 5 LPM. Eliquis BID . Continue amiodarone PO. Digoxin PO Cardiology recs appreciated. Continue bronchodilators Continue antibiotics Blood cultures no growth after 72 hours ID recommendations appreciated Incentive spirometry Head of bed elevation Aspiration precautions PT. Disposition per hospitalist. Labs and imaging reviewed. Rest of plan as noted below. Plan: Supplemental oxygen Keep o2 sat above 92% Influenza and COVID swabs were negative. Antibiotics F/u cultures Pressors if necessary for hemodynamic support Titrate to keep MAP above 65 mmHg. Central line placement for administration of vasoactive medications and blood draws. Monitor renal function due to EVA Maintain euvolemia. Monitor electrolytes. Supplement as necessary Monitor ins/outs DVT prophylaxis GI prophylaxis-Protonix Prognosis: Poor given multiple comorbidities. Rest of plan per hospitalist and other consultants. Thank you Dr. Capps for allowing me to participate in this patient's care. Further recommendations will depend on patient's clinical course. Please do not hesitate to contact me if you have any questions or concerns. This medical document was created using an electronic medical record system with [employer] computerized dictation system. Although this document has been carefully reviewed, there may still be some phonetic and typographical errors. These areas are purely typographical due to imperfections of the software programs, and do not reflect any compromise in the patient's medical care. Plan discussed with: Patient, Other (SYBIL Ramírez) ASA GUILLAUME MD Dec 03, 2024 23:30
[2024-12-04] VITALS (8 sets, daily range): BP systolic 123–125; BP diastolic 72–80; PULSE 62–83; RESP 20–22; TEMP 97.9–98; O2SAT 95–100
--- NOTE | 2024-12-04 23:04 | DVHPN2 ---
Progress Note - Dictate Date Seen: Dec 04, 2024 Medical Necessity Reason Pt with a Central, PICC or Fol: Yes The following are medically ne: Lubin Catheter Reason for lubin catheter: Strict I&O Subjective Patient seen and examined at bedside. Remains on supplemental oxygen Overnight events reviewed. vital signs Vital Sign Date Time Temp Pulse Resp B/P (MAP) Pulse Ox O2 Delivery O2 Flow Rate FiO2 12/04/24 10:10 100 Nasal Cannula 2.0 12/04/24 10:10 28 12/04/24 09:56 97.9 62 20 12/04/24 05:00 123/72 (89) Total Intake and Output 12/03/24 12/03/24 12/04/24 15:00 23:00 07:00 Intake Total 520 ml 840 ml 550 ml Output Total 200 ml 150 ml 550 ml Balance 320 ml 690 ml 0 ml objective Gen.: Patient lying in bed in no apparent distress. On supplemental oxygen. Head: Normocephalic, atraumatic. Eyes: EOMI/PERRLA. Ears: Normal hearing. Normal anatomy. Neck/trachea: Trachea midline, supple. Nose: Normal external anatomy. Mouth: Moist mucous membranes. Chest: Decreased air entry bilaterally. No wheezing or rhonchi. Cardiovascular: Positive S1, positive S2. Regular rate and rhythm. Abdomen: Positive bowel sounds in all 4 quadrants. Soft, non-tender, non- distended. : Deferred. Rectal: Deferred. Skin: Warm, dry. Intact. Extremities: 2+ radial pulses bilaterally. No lower extremity edema. Neuro: Awake, alert, oriented x3. No gross motor or sensory deficits. Cranial nerves II through XII intact. Gait not assessed. laboratory and microbiology Laboratory Tests 11/29/24 07:09 Test 11/29/24 07:09 Range/Units Serum Glucose 128 H 74-106 mg/dL Assessment/Plan Impression: Acute hypoxic respiratory failure Pneumonia likely gram negative Septic shock Atrial fibrillation with RVR Elevated Troponin Obesity BMI 33 CHF exacerbation Acute kidney injury Leukocytosis Pleural effusion Atelectasis Events: Remains on supplemental oxygen, 2 LPM NC Taper O2 as tolerated Continue amiodarone PO. Digoxin PO Cardiology recs appreciated. Continue bronchodilators Continue antibiotics Incentive spirometry Head of bed elevation Aspiration precautions PT. Patient is stable for discharge from the pulmonary standpoint. Disposition: Hospice. Labs and imaging reviewed. Rest of plan as noted below. Plan: Supplemental oxygen Keep o2 sat above 92% Influenza and COVID swabs were negative. Antibiotics F/u cultures Pressors if necessary for hemodynamic support Titrate to keep MAP above 65 mmHg. Central line placement for administration of vasoactive medications and blood draws. Monitor renal function due to EVA Maintain euvolemia. Monitor electrolytes. Supplement as necessary Monitor ins/outs DVT prophylaxis GI prophylaxis-Protonix Prognosis: Poor given multiple comorbidities. Rest of plan per hospitalist and other consultants. Thank you Dr. Capps for allowing me to participate in this patient's care. Further recommendations will depend on patient's clinical course. Please do not hesitate to contact me if you have any questions or concerns. This medical document was created using an electronic medical record system with [employer] dictation system. Although this document has been carefully reviewed, there may still be some phonetic and typographical errors. These areas are purely typographical due to imperfections of the software programs, and do not reflect any compromise in the patient's medical care. Plan discussed with: Patient, Other (RN) ASA GUILLAUME MD Dec 04, 2024 23:04
== END 2024-12-04 12:30 | disposition hospice, home (50) | DRG 871 ==
LOC: ER 08:03 → TELE 20:49 → TELE-WESTW 20:55 → TELE-EAST 11-25 18:10 → ICU CENTRL 11-25 21:46 → TELE-EAST 11-28 19:13
PROVIDERS: ADMIT Internal Medicine; ATTEND Internal Medicine
PROC: 2Y41X5Z Packing of Nasal Region using Packing Material (ICD-10-PCS; principal; 2024-11-22)
PROC: 02HV33Z Insertion of Infusion Device into Superior Vena Cava, Percutaneous Approach (ICD-10-PCS; 2024-11-26)
PROC: B548ZZA Ultrasonography of Superior Vena Cava, Guidance (ICD-10-PCS; 2024-11-26)
DX: A41.01 Sepsis due to Methicillin susceptible Staphylococcus aureus (principal); G93.41 Metabolic encephalopathy; I21.A1 Myocardial infarction type 2; J96.01 Acute respiratory failure with hypoxia; I50.23 Acute on chronic systolic (congestive) heart failure; R65.21 Severe sepsis with septic shock; J15.69 Pneumonia due to other Gram-negative bacteria; I48.20 Chronic atrial fibrillation, unspecified; N17.9 Acute kidney failure, unspecified; J98.11 Atelectasis; E87.20 Acidosis, unspecified; I13.0 Hypertensive heart and chronic kidney disease with heart failure and stage 1 through stage 4 chronic kidney disease, or unspecified chronic kidney disease; Z20.822 Contact with and (suspected) exposure to COVID-19; D69.6 Thrombocytopenia, unspecified; E66.9 Obesity, unspecified; F91.9 Conduct disorder, unspecified; I07.1 Rheumatic tricuspid insufficiency; I35.0 Nonrheumatic aortic (valve) stenosis; I25.10 Atherosclerotic heart disease of native coronary artery without angina pectoris; R04.0 Epistaxis; B96.89 Other specified bacterial agents as the cause of diseases classified elsewhere; D50.0 Iron deficiency anemia secondary to blood loss (chronic); N30.91 Cystitis, unspecified with hematuria; N18.31 Chronic kidney disease, stage 3a; F17.200 Nicotine dependence, unspecified, uncomplicated; Z68.33 Body mass index [BMI] 33.0-33.9, adult; Z98.61 Coronary angioplasty status; Z79.01 Long term (current) use of anticoagulants
CPT/HCPCS: 30901; 36415; 36556; 70551; 71045; 74176; 76775; 80048; 80061; 80162; 81001; 82306; 82570; 82962; 83605; 83735; 83880; 83970; 84100; 84156; 84300; 84443; 84450; 84460; 84484; 85007; 85025; 85027; 85610; 85730; 87040; 87077; 87081; 87086; 87186; 87426; 87804; 93005; 93306; 94640; 97110; 97116; 97163; 97530; 99291; 99292; G0378; J2470; J2543